=== PATIENT | female | born 1950 | race Asian ===

== ENCOUNTER 2020-09-07 06:51 | Outpatient (REF) | payer MEDICARE, SELFPAY ==
[2020-09-07 12:20] LABS: Albumin Level 4.2 g/dL (3.5-5.0)
[2020-09-07 12:29] LABS: Free T4 (Free Thyroxine) 0.99 ng/dL (0.71-1.85); Thyroid Stimulating Hormone 1.27 mIU/mL (0.32-4.0); Vitamin D 25-OH Total 24.4 ng/mL (>30)
[2020-09-08 19:01] LABS: Calcium (PTHI) 9.6 mg/dL (8.6-10.4); PTHI 62 pg/mL (14-64)
== END 2020-09-07 06:52 | disposition home or self-care (01) ==
LOC: HO.HMGCLDS 06:51
PROVIDERS: PCP Internal Medicine; Visit Provider Internal Medicine
DX: M81.0 Age-related osteoporosis without current pathological fracture (principal); E21.0 Primary hyperparathyroidism; E55.9 Vitamin D deficiency, unspecified
CPT/HCPCS: 82040; 82306; 82310; 83970; 84439; 84443

== ENCOUNTER 2020-09-11 08:17 | Outpatient (REF) | payer MEDICARE, SELFPAY ==
--- NOTE | 2020-09-11 08:20 | MM_ITS ---
EXAMINATION: MM SCREENING DIGITAL BREAST TOMOSYNTHESIS, BILATERAL CLINICAL INFORMATION: Screening. Asymptomatic. The lifetime risk of breast cancer based on the Tyrer-Cuzick Model is 4%. COMPARISON: Mammography: 09/09/2019, 08/26/2018, 08/11/2017 TECHNIQUE: Digital breast tomosynthesis is performed in both the craniocaudal and mediolateral oblique views along with computer-aided detection (CAD). Synthesized 2D images are generated from the tomosynthesis. Additional left MLO view is provided. FINDINGS: The breasts are heterogeneously dense, which may obscure small masses (ACR BI-RADS breast composition Category c). There are no significant masses, abnormal calcifications, or other abnormalities. Parenchymal pattern is similar to prior studies. No significant changes. MM/MM tomosynthesis screening BI IMPRESSION: No mammographic evidence of malignancy. ASSESSMENT: BI-RADS 1: Negative RECOMMENDATION: Routine annual mammography screening. This patient's information was entered into a reminder system with a target due date for their next mammogram.
== END 2020-09-11 08:18 | disposition home or self-care (01) ==
LOC: HO.MAMMO 08:17
PROVIDERS: PCP Internal Medicine; Visit Provider Internal Medicine
DX: Z12.31 Encounter for screening mammogram for malignant neoplasm of breast (principal)
CPT/HCPCS: 77063; 77067

== ENCOUNTER → 2020-09-21 11:15 | Outpatient (BNVA) | payer MEDICARE, SELFPAY | PROVIDERS: PCP Internal Medicine; Referring Provider Internal Medicine; Visit Provider Internal Medicine | DX: E21.3 Hyperparathyroidism, unspecified (principal); M81.0 Age-related osteoporosis without current pathological fracture; E55.9 Vitamin D deficiency, unspecified; Z79.899 Other long term (current) drug therapy; Z79.891 Long term (current) use of opiate analgesic; Z79.82 Long term (current) use of aspirin | CPT/HCPCS: Q3014 ==

== ENCOUNTER 2020-10-09 07:55 | Outpatient (REF) | payer MEDICARE, SELFPAY ==
[2020-10-09 11:37] LABS: Albumin Level 4.5 g/dL (3.5-5.0); Calcium 8.5 mg/dL (8.4-10.2); Estimated Glomerular Filt Rate > 60
[2020-10-09 11:40] LABS: Alanine Aminotransferase 17 U/L (0-31); Albumin Level 4.4 g/dL (3.5-5.0); Alkaline Phosphatase 86 U/L (39-117); Anion Gap 15 (12-20); Aspartate Amino Transferase 20 U/L (5-31); Bilirubin Total 0.9 mg/dL (0.0-1.0); Blood Urea Nitrogen 16 mg/dL (9-16); Calcium 8.4 mg/dL (8.4-10.2); Carbon Dioxide 30 mmol/L (22-29); Chloride 101 mmol/L (96-108); Cholesterol 171 mg/dL; Estimated Glomerular Filt Rate > 60; Glucose Fasting 90 mg/dL (60-99); HDL Cholesterol 50 mg/dL; LDL Cholesterol Calculated 98 mg/dl; Potassium 4.6 mmol/l (3.3-5.1); Sodium 141 mmol/L (135-145); Total Protein 7.1 g/dL (6.5-8.0); Triglycerides 115 mg/dL
[2020-10-09 11:58] LABS: Estimated Average Glucose 120 mg/dL; Hemoglobin A1c % 5.8 %
[2020-10-09 12:04] LABS: Vitamin D 25-OH Total 49.4 ng/mL (>30)
[2020-10-11 16:58] LABS: Calcium (PTHI) 8.8 mg/dL (8.6-10.4); PTHI 22 pg/mL (14-64)
== END 2020-10-09 07:56 | disposition home or self-care (01) ==
LOC: HO.HMGCLDS 07:55
PROVIDERS: PCP Internal Medicine; Visit Provider Internal Medicine
DX: E55.9 Vitamin D deficiency, unspecified (principal); E21.3 Hyperparathyroidism, unspecified; I10 Essential (primary) hypertension; R73.03 Prediabetes; K21.9 Gastro-esophageal reflux disease without esophagitis; E78.9 Disorder of lipoprotein metabolism, unspecified; Z91.09 Other allergy status, other than to drugs and biological substances
CPT/HCPCS: 80053; 80061; 82040; 82306; 82310; 82565; 83036; 83970

== ENCOUNTER → 2020-10-19 09:30 | Outpatient (BNVA) | payer MEDICARE, SELFPAY | PROVIDERS: PCP Internal Medicine; Visit Provider Internal Medicine | DX: Z13.89 Encounter for screening for other disorder (principal) | CPT/HCPCS: Q3014 ==

== ENCOUNTER 2020-11-06 09:48 | Outpatient (REF) | payer MEDICARE, SELFPAY ==
[2020-11-06 11:41] LABS: Albumin Level 4.3 g/dL (3.5-5.0); Calcium 7.9 mg/dL (8.4-10.2); Estimated Glomerular Filt Rate > 60
[2020-11-06 12:03] LABS: Vitamin D 25-OH Total 50.4 ng/mL (>30)
[2020-11-07 17:43] LABS: Calcium (PTHI) 8.2 mg/dL (8.6-10.4); PTHI 29 pg/mL (14-64)
== END 2020-11-06 09:49 | disposition home or self-care (01) ==
LOC: HO.LAB 09:48
PROVIDERS: PCP Internal Medicine; Visit Provider Internal Medicine
DX: E21.3 Hyperparathyroidism, unspecified (principal); E20.9 Hypoparathyroidism, unspecified; E55.9 Vitamin D deficiency, unspecified
CPT/HCPCS: 36415; 82040; 82306; 82310; 82565; 83970; 84100

== ENCOUNTER → 2020-11-13 10:18 | Outpatient (BNVA) | payer MEDICARE, SELFPAY | PROVIDERS: PCP Internal Medicine; Visit Provider Internal Medicine | DX: Z76.89 Persons encountering health services in other specified circumstances (principal) | CPT/HCPCS: Q3014 ==

== ENCOUNTER 2020-11-20 12:15 | Outpatient (REF) | payer MEDICARE, SELFPAY ==
[2020-11-20 13:10] LABS: Albumin Level 4.7 g/dL (3.5-5.0); Calcium 8.6 mg/dL (8.4-10.2); Estimated Glomerular Filt Rate > 60; Phosphorus 5.3 mg/dL (2.7-4.5)
[2020-11-22 10:42] LABS: Calcium (PTHI) 8.8 mg/dL (8.6-10.4); PTHI 30 pg/mL (14-64)
== END 2020-11-20 12:16 | disposition home or self-care (01) ==
LOC: HO.LAB 12:15
PROVIDERS: PCP Internal Medicine; Visit Provider Internal Medicine
DX: E20.9 Hypoparathyroidism, unspecified (principal)
CPT/HCPCS: 36415; 82040; 82310; 82565; 83970; 84100

== ENCOUNTER 2020-11-27 09:53 | Outpatient (REF) | payer MEDICARE, SELFPAY ==
[2020-11-27 12:22] LABS: Albumin Level 4.6 g/dL (3.5-5.0); Calcium 8.3 mg/dL (8.4-10.2); Phosphorus 4.6 mg/dL (2.7-4.5)
[2020-11-29 11:32] LABS: PTHI 36 pg/mL (14-64)
== END 2020-11-27 09:54 | disposition home or self-care (01) ==
LOC: HO.LAB 09:53
PROVIDERS: PCP Internal Medicine; Visit Provider Internal Medicine
DX: E20.9 Hypoparathyroidism, unspecified (principal); E55.9 Vitamin D deficiency, unspecified; M81.0 Age-related osteoporosis without current pathological fracture
CPT/HCPCS: 36415; 82040; 82310; 83970; 84100; Q3014

== ENCOUNTER 2020-12-11 06:56 | Outpatient (REF) | payer MEDICARE, SELFPAY ==
[2020-12-11 08:30] LABS: Albumin Level 4.5 g/dL (3.5-5.0); Calcium 8.6 mg/dL (8.4-10.2)
[2020-12-12 09:53] LABS: Calcium (PTHI) 8.9 mg/dL (8.6-10.4); PTHI 21 pg/mL (14-64)
== END 2020-12-11 06:57 | disposition home or self-care (01) ==
LOC: HO.LAB 06:56
PROVIDERS: PCP Internal Medicine; Visit Provider Internal Medicine
DX: E89.2 Postprocedural hypoparathyroidism (principal); E21.3 Hyperparathyroidism, unspecified; M81.0 Age-related osteoporosis without current pathological fracture; E55.9 Vitamin D deficiency, unspecified
CPT/HCPCS: 36415; 82040; 82310; 83970; 99212

== ENCOUNTER 2020-12-25 07:18 | Outpatient (REF) | payer MEDICARE, SELFPAY ==
[2020-12-25 08:27] LABS: Albumin Level 4.7 g/dL (3.5-5.0); Calcium 8.8 mg/dL (8.4-10.2); Phosphorus 5.1 mg/dL (2.7-4.5)
[2020-12-27 10:01] LABS: PTHI 33 pg/mL (14-64)
== END 2020-12-25 07:19 | disposition home or self-care (01) ==
LOC: HO.LAB 07:18
PROVIDERS: PCP Internal Medicine; Visit Provider Internal Medicine
DX: E20.9 Hypoparathyroidism, unspecified (principal)
CPT/HCPCS: 36415; 82040; 82310; 83970; 84100

== ENCOUNTER 2021-01-09 07:00 | Outpatient (REF) | payer MEDICARE, MEDICAID, SELFPAY ==
[2021-01-09 08:24] LABS: Albumin Level 4.6 g/dL (3.5-5.0); Calcium 8.4 mg/dL (8.4-10.2)
[2021-01-09 08:57] LABS: Vitamin D 25-OH Total 40.6 ng/mL (>30)
[2021-01-10 15:46] LABS: Calcium (PTHI) 8.7 mg/dL (8.6-10.4); PTHI 27 pg/mL (14-64)
== END 2021-01-09 07:01 | disposition home or self-care (01) ==
LOC: HO.LAB 07:00
PROVIDERS: PCP Internal Medicine; Visit Provider Internal Medicine
DX: E20.9 Hypoparathyroidism, unspecified (principal); E55.9 Vitamin D deficiency, unspecified
CPT/HCPCS: 36415; 82040; 82306; 82310; 83970

== ENCOUNTER 2021-01-16 12:54 | Outpatient (REF) | payer MEDICARE, SELFPAY ==
[2021-01-16 13:57] LABS: Albumin Level 4.4 g/dL (3.5-5.0); Calcium 8.3 mg/dL (8.4-10.2)
[2021-01-17 16:36] LABS: Calcium (PTHI) 8.4 mg/dL (8.6-10.4); PTHI 30 pg/mL (14-64)
== END 2021-01-16 12:55 | disposition home or self-care (01) ==
LOC: HO.LAB 12:54
PROVIDERS: PCP Internal Medicine; Visit Provider Internal Medicine
DX: E20.9 Hypoparathyroidism, unspecified (principal)
CPT/HCPCS: 36415; 82040; 82310; 83970

== ENCOUNTER 2021-01-29 07:34 | Outpatient (REF) | payer MEDICARE, MEDICAID, SELFPAY ==
[2021-01-29 08:30] LABS: Albumin Level 4.6 g/dL (3.5-5.0); Calcium 9.5 mg/dL (8.4-10.2)
[2021-01-29 09:00] LABS: Vitamin D 25-OH Total 39.4 ng/mL (>30)
[2021-01-30 17:37] LABS: Calcium (PTHI) 9.7 mg/dL (8.6-10.4); PTHI 15 pg/mL (14-64)
== END 2021-01-29 07:35 | disposition home or self-care (01) ==
LOC: HO.LAB 07:34
PROVIDERS: PCP Internal Medicine; Visit Provider Internal Medicine
DX: E20.9 Hypoparathyroidism, unspecified (principal); E55.9 Vitamin D deficiency, unspecified
CPT/HCPCS: 36415; 82040; 82306; 82310; 83970

== ENCOUNTER 2021-01-29 07:59 | Outpatient (REF) | payer MEDICARE, MEDICAID, SELFPAY | END 2021-01-29 08:00 | disposition home or self-care (01) | LOC: HO.LAB 07:59 | PROVIDERS: Visit Provider Internal Medicine | DX: Z20.822 Contact with and (suspected) exposure to COVID-19 (principal) | CPT/HCPCS: 36415; C9803; U0003; U0005 ==

== ENCOUNTER 2021-02-16 11:31 | Outpatient (REF) | payer MEDICARE, MEDICAID, SELFPAY ==
[2021-02-16 12:41] LABS: Albumin Level 4.7 g/dL (3.5-5.0); Calcium 9.3 mg/dL (8.4-10.2)
[2021-02-20 06:56] LABS: Calcium (PTHI) 9.6 mg/dL (8.6-10.4); PTHI 22 pg/mL (14-64)
== END 2021-02-16 11:32 | disposition home or self-care (01) ==
LOC: HO.LAB 11:31
PROVIDERS: PCP Internal Medicine; Visit Provider Internal Medicine
DX: E20.9 Hypoparathyroidism, unspecified (principal)
CPT/HCPCS: 36415; 82040; 82310; 83970

== ENCOUNTER 2021-02-23 10:10 | Outpatient (REF) | payer MEDICARE, MEDICAID, SELFPAY ==
[2021-02-23 11:55] LABS: Alanine Aminotransferase 27 U/L (0-31); Albumin Level 4.7 g/dL (3.5-5.0); Alkaline Phosphatase 66 U/L (39-117); Anion Gap 15 (12-20); Aspartate Amino Transferase 28 U/L (5-31); Bilirubin Total 1.1 mg/dL (0.0-1.0); Blood Urea Nitrogen 18 mg/dL (9-16); Calcium 8.7 mg/dL (8.4-10.2); Carbon Dioxide 30 mmol/L (22-29); Chloride 101 mmol/L (96-108); Estimated Glomerular Filt Rate > 60; Glucose Random 91 mg/dL (60-115); Potassium 4.7 mmol/L (3.3-5.1); Sodium 141 mmol/L (135-145); Total Protein 7.6 g/dL (6.5-8.0)
== END 2021-02-23 10:11 | disposition home or self-care (01) ==
LOC: HO.HMGCLDS 10:10
PROVIDERS: PCP Internal Medicine; Visit Provider Internal Medicine
DX: Z00.01 Encounter for general adult medical examination with abnormal findings (principal); E78.9 Disorder of lipoprotein metabolism, unspecified; I10 Essential (primary) hypertension
CPT/HCPCS: 36415; 80053

== ENCOUNTER 2021-03-12 09:21 | Outpatient (REF) | payer MEDICARE, MEDICAID, SELFPAY ==
[2021-03-12 12:01] LABS: Albumin Level 4.2 g/dL (3.5-5.0); Calcium 8.4 mg/dL (8.4-10.2); Estimated Glomerular Filt Rate > 60; Phosphorus 4.4 mg/dL (2.7-4.5)
[2021-03-12 12:12] LABS: Vitamin D 25-OH Total 37.8 ng/mL (>30)
[2021-03-13 19:47] LABS: Calcium (PTHI) 8.6 mg/dL (8.6-10.4); PTHI 30 pg/mL (14-64)
[2021-03-15 07:17] LABS: HPV mRNA E6/E7 rflx Not Detected (Not Detected)
== END 2021-03-12 09:22 | disposition home or self-care (01) ==
LOC: HO.LAB 09:21
PROVIDERS: Absent Provider Internal Medicine; PCP Internal Medicine; Visit Provider Advanced Practice Midwife
DX: Z01.419 Encounter for gynecological examination (general) (routine) without abnormal findings (principal); E21.3 Hyperparathyroidism, unspecified; E55.9 Vitamin D deficiency, unspecified; E20.9 Hypoparathyroidism, unspecified; M81.0 Age-related osteoporosis without current pathological fracture
CPT/HCPCS: 36415; 82040; 82306; 82310; 82565; 83970; 84100; 87624; 88142

== ENCOUNTER → 2021-04-18 11:19 | Outpatient (BNVA) | payer MEDICARE, MEDICAID, SELFPAY | PROVIDERS: PCP Internal Medicine; Visit Provider Internal Medicine | CPT/HCPCS: Q3014 ==

== ENCOUNTER 2021-06-19 07:49 | Outpatient (REF) | payer MEDICARE, MEDICAID, SELFPAY ==
--- NOTE | ~2021-06-19 | MM_ITS ---
EXAMINATION: BONE DENSITOMETRY CLINICAL INDICATION: Age-related osteoporosis without current pathological fracture. COMPARISON: Previous BD dated 11/12/2018 and baseline BD dated 09/30/2007. TECHNIQUE: Using a [employer] DXA System (software version: 13.1) manufactured by [employer], dual-energy x-ray absorptiometry was performed of the lumbar spine and left hip. The images are of good technical quality. Summary results are attached. FINDINGS: AP SPINE L1-L3 (excluding L4): The data of L1-L4 has been changed to exclude the L4 vertebral body, because hardware at this level may cause overestimation of lumbar spine density. Current: BMD 0.942 g/cm2, Z-score -0.2, T-score -1.9, osteopenia, 1.0% increase from previous, 12.2% decrease from baseline (<5% change is not significant). Prior: BMD 0.933 g/cm2. Baseline: BMD 1.073 g/cm2. LEFT FEMUR, NECK: Current: BMD 0.597 g/cm2, Z-score -1.5, T-score -3.2, osteoporosis. Prior: BMD 0.432 g/cm2. Baseline: BMD 0.745 g/cm2. LEFT FEMUR, TOTAL: Current: BMD 0.659 g/cm2, Z-score -1.3, T-score -2.8, osteoporosis, 29.5% increase from previous, 22.5% decrease from baseline (<5% change is not significant). Prior: BMD 0.509 g/cm2. Baseline: BMD 0.850 g/cm2. IDENTIFIED RISK FACTORS: Osteoporosis, low calcium intake, menopause. HISTORY OF FRACTURE: None listed. MEDICATIONS: Calcium or multivitamin. MM/XR DEXA axial skeleton IMPRESSION: 1. DIAGNOSIS: Osteoporosis based on the lowest T-score value of -3.2 in the femoral neck applying World Health Organization criteria. 2. 10-YEAR FRACTURE RISK PREDICTION, FRAX: Major osteoporotic fracture (clinical spine, forearm, hip or shoulder) 11.6%. Hip fracture 4.0%. 3. Treatment Recommendations: NOF guidelines recommend consideration for treatment in postmenopausal women and men age 50 and older presenting with the following: -A hip or vertebral (clinical or morphometric) fracture. -T-score less than or equal to -2.5 at the femoral neck or spine after appropriate evaluation to exclude secondary causes. -Low bone mass at the hip or spine and a 10-year fracture probability by FRAX of greater than or equal to 3% for hip fracture or greater than or equal to 20% for major osteoporotic fracture based on the [place] adapted WHO algorithm. 4. Other Recommendations: All treatment decisions require clinical judgment and consideration of individual patient factors, including patient preferences, comorbidities, previous drug use, risk factors not captured in the FRAX model (e.g. frailty, falls, vitamin D deficiency, increased bone turnover, interval significant decline in bone density) and possible under or overestimation of fracture risk by FRAX. Additional medical evaluation for secondary cause of low bone mineral density may be appropriate. FUTURE SCAN RECOMMENDATION: People with diagnosed cases of osteoporosis or at high risk for fracture should have regular bone mineral density tests. For patients eligible for Medicare, routine testing is allowed once every 2 years. The testing frequency can be increased to one year for patients who have rapidly progressing disease, those who are receiving or discontinuing medical therapy to restore bone mass, or have additional risk factors.
== END 2021-06-19 07:50 | disposition home or self-care (01) ==
LOC: HO.MAMMO 07:49
PROVIDERS: PCP Internal Medicine; Visit Provider Internal Medicine
DX: M81.0 Age-related osteoporosis without current pathological fracture (principal); Z78.0 Asymptomatic menopausal state
CPT/HCPCS: 77080

== ENCOUNTER 2021-09-19 15:32 | Outpatient (REF) | payer MEDICARE, MEDICAID, SELFPAY ==
--- NOTE | ~2021-09-19 | MM_ITS ---
EXAMINATION: MM SCREENING DIGITAL BREAST TOMOSYNTHESIS, BILATERAL CLINICAL INFORMATION: Screening. Asymptomatic. The lifetime risk of breast cancer based on the Tyrer-Cuzick Model is 4%. COMPARISON: Mammography: 09/11/2020, 09/09/2019, 08/26/2018 TECHNIQUE: Digital breast tomosynthesis is performed in both the craniocaudal and mediolateral oblique views along with computer-aided detection (CAD). Synthesized 2D images are generated from the tomosynthesis. FINDINGS: The breasts are heterogeneously dense, which may obscure small masses (ACR BI-RADS breast composition Category c). There are no significant masses, abnormal calcifications, or other abnormalities. The axilla and skin contours are unremarkable. No significant changes from prior exams. MM/MM tomosynthesis screening BI IMPRESSION: No mammographic evidence of malignancy. ASSESSMENT: BI-RADS 1: Negative RECOMMENDATION: Routine annual mammography screening. This patient's information was entered into a reminder system with a target due date for their next mammogram.
== END 2021-09-19 15:33 | disposition home or self-care (01) ==
LOC: HO.MAMMO 15:32
PROVIDERS: Visit Provider Internal Medicine
DX: Z12.31 Encounter for screening mammogram for malignant neoplasm of breast (principal)
CPT/HCPCS: 77063; 77067

== ENCOUNTER 2021-10-18 09:18 | Outpatient (REF) | payer MEDICARE, MEDICAID, SELFPAY ==
[2021-10-18 10:10] LABS: Albumin Level 4.4 g/dL (3.5-5.0); Calcium 8.9 mg/dL (8.4-10.2)
[2021-10-18 10:38] LABS: Vitamin D 25-OH Total 40.3 ng/mL (>30)
[2021-10-19 16:31] LABS: Calcium (PTHI) 9.3 mg/dL (8.6-10.4); PTHI 25 pg/mL (14-64)
== END 2021-10-18 09:19 | disposition home or self-care (01) ==
LOC: HO.LAB 09:18
PROVIDERS: PCP Internal Medicine; Visit Provider Internal Medicine
DX: E20.9 Hypoparathyroidism, unspecified (principal); E55.9 Vitamin D deficiency, unspecified; M81.0 Age-related osteoporosis without current pathological fracture; E21.3 Hyperparathyroidism, unspecified
CPT/HCPCS: 36415; 82040; 82306; 82310; 83970; Q3014

== ENCOUNTER 2021-11-23 07:30 | Outpatient (REF) | payer MEDICARE, MEDICAID, SELFPAY ==
[2021-11-23 11:20] LABS: MANUAL DIFF FLAG NO
[2021-11-23 11:34] LABS: Basophils Percent Auto 0.2 % (0-2); Eosinophils Absolute Auto 0.1 X10*3/uL (0.0-0.4); Eosinophils Percent Auto 1.5 % (0-4); Hematocrit 37.4 % (37.0-47.0); Hemoglobin 12.1 g/dl (12.0-16.0); Imm Gran Abs Auto 0.01 X10*3/uL (0.00-0.03); Imm Gran Pct Auto 0.2 % (0.0-0.4); Lymphocytes Percent Auto 37.1 % (20-40); Mean Corpuscular HGB Conc 32.4 g/dl (31.0-35.0); Mean Corpuscular Hemoglobin 30.3 pg (27.0-33.0); Mean Corpuscular Volume 93.5 fL (80.0-98.0); Mean Platelet Volume 10.1 fL (9.4-12.3); Monocytes Absolute Auto 0.4 X10*3/uL (0.1-1.2); Neutrophils Absolute Auto 2.8 x10*3/uL (2.0-8.3); Platelet Count 262 X10*3/uL (160-400); Red Cell Distribution Width 13.2 % (11.0-16.0); White Blood Count 5.3 X10*3/uL (4.8-10.8)
[2021-11-23 11:54] LABS: Alanine Aminotransferase 21 U/L (0-31); Albumin Level 4.1 g/dL (3.5-5.0); Alkaline Phosphatase 48 U/L (39-117); Anion Gap 14 (12-20); Aspartate Amino Transferase 23 U/L (5-31); Bilirubin Total 0.7 mg/dL (0.0-1.0); Blood Urea Nitrogen 15 mg/dL (9-16); Calcium 8.4 mg/dL (8.4-10.2); Carbon Dioxide 29 mmol/L (22-29); Chloride 103 mmol/L (96-108); Cholesterol 163 mg/dL; Estimated Glomerular Filt Rate > 60; Glucose Fasting 95 mg/dL (60-99); HDL Cholesterol 50 mg/dL; LDL Cholesterol Calculated 100 mg/dl; Potassium 4.7 mmol/L (3.3-5.1); Sodium 141 mmol/L (135-145); Triglycerides 65 mg/dL
== END 2021-11-23 07:31 | disposition home or self-care (01) ==
LOC: HO.HMGCLDS 07:30
PROVIDERS: Visit Provider Internal Medicine
DX: B35.3 Tinea pedis (principal); E78.9 Disorder of lipoprotein metabolism, unspecified; H10.10 Acute atopic conjunctivitis, unspecified eye; I10 Essential (primary) hypertension; Z91.09 Other allergy status, other than to drugs and biological substances
CPT/HCPCS: 36415; 80053; 80061; 85025

== ENCOUNTER → 2022-03-14 09:36 | Outpatient (BNVA) | payer MEDICARE, MEDICAID, SELFPAY | PROVIDERS: PCP Internal Medicine; Visit Provider Advanced Practice Midwife | DX: Z01.419 Encounter for gynecological examination (general) (routine) without abnormal findings (principal) ==

== ENCOUNTER 2022-03-22 06:30 | Outpatient (REF) | payer MEDICARE, MEDICAID, SELFPAY ==
[2022-03-22 11:35] LABS: Anion Gap 11 (12-20); Blood Urea Nitrogen 16 mg/dL (9-16); Carbon Dioxide 33 mmol/L (22-29); Chloride 101 mmol/L (96-108); Estimated Glomerular Filt Rate > 60; Glucose Fasting 101 mg/dL (60-99); Potassium 4.8 mmol/L (3.3-5.1); Sodium 140 mmol/L (135-145)
[2022-03-22 11:36] LABS: Alanine Aminotransferase 20 U/L (0-31); Albumin Level 4.2 g/dL (3.5-5.0); Alkaline Phosphatase 49 U/L (39-117); Aspartate Amino Transferase 25 U/L (5-31); Bilirubin Total 0.6 mg/dL (0.0-1.0); Calcium 8.2 mg/dL (8.4-10.2); Cholesterol 163 mg/dL; HDL Cholesterol 52 mg/dL; LDL Cholesterol Calculated 93 mg/dl; Total Protein 6.9 g/dL (6.5-8.0); Triglycerides 91 mg/dL
== END 2022-03-22 06:31 | disposition home or self-care (01) ==
LOC: HO.HMGCLDS 06:30
PROVIDERS: Visit Provider Internal Medicine
DX: Z13.89 Encounter for screening for other disorder (principal)
CPT/HCPCS: 36415; 80053; 80061

== ENCOUNTER 2022-07-30 09:05 | Outpatient (REF) | payer MEDICARE, MEDICAID, SELFPAY ==
[2022-07-30 11:51] LABS: Alanine Aminotransferase 24 U/L (0-31); Albumin Level 4.6 g/dL (3.5-5.0); Alkaline Phosphatase 56 U/L (39-117); Anion Gap 16 (12-20); Aspartate Amino Transferase 28 U/L (5-31); Bilirubin Total 0.7 mg/dL (0.0-1.0); Blood Urea Nitrogen 17 mg/dL (9-16); Calcium 8.9 mg/dL (8.4-10.2); Carbon Dioxide 29 mmol/L (22-29); Chloride 101 mmol/L (96-108); Estimated Glomerular Filt Rate > 60; Glucose Random 86 mg/dL (60-115); Potassium 4.6 mmol/L (3.3-5.1); Sodium 141 mmol/L (135-145); Total Protein 7.3 g/dL (6.5-8.0)
[2022-07-30 12:08] LABS: Estimated Average Glucose 123 mg/dL; Hemoglobin A1c % 5.9 %
== END 2022-07-30 09:06 | disposition home or self-care (01) ==
LOC: HO.HMGCLDS 09:05
PROVIDERS: PCP Internal Medicine; Visit Provider Internal Medicine
DX: E78.9 Disorder of lipoprotein metabolism, unspecified (principal); I10 Essential (primary) hypertension; M81.0 Age-related osteoporosis without current pathological fracture; R73.03 Prediabetes; Z91.09 Other allergy status, other than to drugs and biological substances
CPT/HCPCS: 36415; 80053; 83036

== ENCOUNTER 2022-09-21 08:03 | Outpatient (REF) | payer MEDICARE, MEDICAID, SELFPAY ==
--- NOTE | ~2022-09-21 | MM_ITS ---
EXAMINATION: MM SCREENING DIGITAL BREAST TOMOSYNTHESIS, BILATERAL CLINICAL INFORMATION: Screening. Asymptomatic. The lifetime risk of breast cancer based on the Tyrer-Cuzick Model is 4%. COMPARISON: Mammography: 09/19/2021, 09/11/2020, 09/09/2019 TECHNIQUE: Digital breast tomosynthesis is performed in both the craniocaudal and mediolateral oblique views along with computer-aided detection (CAD). Synthesized 2D images are generated from the tomosynthesis. FINDINGS: The breasts are heterogeneously dense, which may obscure small masses (ACR BI-RADS breast composition Category c). There are no significant masses, abnormal calcifications, or other abnormalities. Parenchymal pattern is similar to prior exams. No architectural abnormality. No developing density. Skin contours are smooth. MM/MM tomosynthesis screening BI IMPRESSION: No mammographic evidence of malignancy. ASSESSMENT: BI-RADS 1: Negative RECOMMENDATION: Routine annual mammography screening. This patient's information was entered into a reminder system with a target due date for their next mammogram.
== END 2022-09-21 08:04 | disposition home or self-care (01) ==
LOC: HO.MAMMO 08:03
PROVIDERS: PCP Internal Medicine; Visit Provider Internal Medicine
DX: Z12.31 Encounter for screening mammogram for malignant neoplasm of breast (principal)
CPT/HCPCS: 77063; 77067

== ENCOUNTER 2022-10-17 07:33 | Outpatient (REF) | payer MEDICARE, MEDICAID, SELFPAY ==
[2022-10-17 08:58] LABS: Alanine Aminotransferase 19 U/L (0-31); Albumin Level 4.5 g/dL (3.5-5.0); Alkaline Phosphatase 50 U/L (39-117); Anion Gap 13 (12-20); Aspartate Amino Transferase 23 U/L (5-31); Bilirubin Total 0.6 mg/dL (0.0-1.0); Blood Urea Nitrogen 19 mg/dL (9-16); Calcium 8.4 mg/dL (8.4-10.2); Carbon Dioxide 29 mmol/L (22-29); Chloride 105 mmol/L (96-108); Estimated Glomerular Filt Rate > 60; Glucose Random 100 mg/dL (60-115); Phosphorus 3.7 mg/dL (2.7-4.5); Potassium 4.4 mmol/L (3.3-5.1); Sodium 143 mmol/L (135-145); Total Protein 6.9 g/dL (6.5-8.0); Vitamin D 25-OH Total 46.5 ng/mL (>30)
[2022-10-21 11:54] LABS: Calcium (PTHI) 8.5 mg/dL (8.6-10.4); PTHI 30 pg/mL (16-77)
== END 2022-10-17 07:34 | disposition home or self-care (01) ==
LOC: HO.LAB 07:33
PROVIDERS: PCP Internal Medicine; Visit Provider Internal Medicine
DX: M81.0 Age-related osteoporosis without current pathological fracture (principal); E55.9 Vitamin D deficiency, unspecified
CPT/HCPCS: 36415; 80053; 82306; 83970; 84100

== ENCOUNTER → 2022-10-21 12:56 | Outpatient (BNVA) | payer MEDICARE, MEDICAID, SELFPAY | PROVIDERS: PCP Internal Medicine; Visit Provider Internal Medicine | DX: E89.2 Postprocedural hypoparathyroidism (principal); M81.0 Age-related osteoporosis without current pathological fracture; E55.9 Vitamin D deficiency, unspecified | CPT/HCPCS: 99212 ==

== ENCOUNTER 2022-10-23 13:53 | Outpatient (REF) | payer MEDICARE, MEDICAID, SELFPAY ==
[2022-10-25 09:29] LABS: HBS Num1 71.52 mIU/mL (0-7.99); ~HepC Num1 0.49 S/CO (0.00-0.79); ~Hepatitis B Surface Antibody REACTIVE (Nonreactive); ~Hepatitis C Antibody Nonreactive (Nonreactive)
== END 2022-10-23 13:54 | disposition home or self-care (01) ==
LOC: HO.LAB 13:53
PROVIDERS: PCP Internal Medicine; Visit Provider Internal Medicine
DX: Z20.5 Contact with and (suspected) exposure to viral hepatitis (principal)
CPT/HCPCS: 36415; 86706; 86803

== ENCOUNTER 2022-11-29 08:26 | Outpatient (REF) | payer MEDICARE, MEDICAID, SELFPAY ==
--- NOTE | ~2022-11-29 | XR_ITS ---
EXAMINATION: XR LUMBOSACRAL SPINE CLINICAL INFORMATION: Lower back pain. COMPARISON: 05/30/2010 TECHNIQUE: Three views of the lumbosacral spine. FINDINGS: Posterior fusion hardware with intervertebral disc spacer at L5-S1. Hardware is intact. There is no acute fracture or subluxation. Grade 1 anterolisthesis of L3 on L4 and L4 on L5. Disc space narrowing at L4-L5. Small endplate osteophytes throughout. The sacroiliac joints are symmetric. The visualized sacrum is intact. Normal bowel gas pattern. XR/XR lumbar spine 2-3V IMPRESSION: Mild degenerative changes throughout the lumbar spine. Intact fusion at L5-S1.
== END 2022-11-29 08:27 | disposition home or self-care (01) ==
LOC: HO.HMGCX 08:26
PROVIDERS: Visit Provider Internal Medicine
DX: M54.50 Low back pain, unspecified (principal)
CPT/HCPCS: 72100

== ENCOUNTER 2022-12-30 06:47 | Day surgery (SDC) | payer MEDICARE, MEDICAID, SELFPAY ==
[2022-12-10 08:48] VITALS: BMI 23.4
--- NOTE | 2022-12-26 09:04 | MHC.SHP ---
Pre-Procedural Eval Section A Date of Service: 12/26/22 The patient is an INPATIENT: No Changes since office visit: No Cold of Flu in the past 2 weeks, No New Medical Problems, No Changes in Medication and No Patient answered all questions The History & Physical has been completed within 30 days and I have reviewed it.: Yes Section B Chief Complaint: Age-related nuclear cataract, left eye Allergies: Allergies Allergy/AdvReac Type Severity Reaction Status Date / Time No Known Allergies Allergy Verified 11/29/22 07:51 Plan Diagnosis/Plan: Unchanged I have reviewed the history and physical and performed a pertinent physical examination on my patient. No changes have occurred unless specified. Time Spent With Patient Time: Total time managing care of this patient today ____ minutes.
[2022-12-30 06:57] VITALS: BP 138/96; PULSE 85; RESP 16; TEMP 36.2; O2SAT 97
[2022-12-30] MEDS: Tetracaine HCl/PF 0.5% Oph Sol 4 ML DROPS 1 DROP EYE-LEFT ×2 (07:04→07:05)
[2022-12-30] MEDS: Cyclopentolate 1 % Ophth Sol 2 ML DRPBTL 1 DROP EYE-LEFT ×3 (07:06→07:17)
[2022-12-30] MEDS: Tropicamide 1 % Ophth Sol 3 ML BTL 1 DROP EYE-LEFT ×3 (07:08→07:18)
[2022-12-30] MEDS: Phenylephrine HCL 2.5% Oph SoL 2 ML BOTTLE 1 DROP EYE-LEFT ×3 (07:10→07:21)
[2022-12-30] MEDS: Ketorolac Tromethamine 0.5% Op 5 ML DROPS 1 DROP EYE-LEFT ×3 (07:10→07:19)
[2022-12-30] MEDS: Lactated Ringers 500 ML 50 ML IV (07:13)
--- NOTE | 2022-12-30 07:22 | P.CONAN_ITS ---
[facility] Active Problems Active Problems: All Active Problems (Updated 12/10/22 @ 08:44 by Natacha Adorno RN) Lipid disorder (Acute) Environmental allergies (Acute) Hypertension, essential (Acute) Arthrosis (Acute) Osteoporosis (Acute) Encounter for general adult medical examination with abnormal findings (Acute) Routine gynecological examination (Acute) TIA (transient ischemic attack) (Acute) Tinea pedis (Acute) Allergic conjunctivitis (Acute) Encounter for annual routine gynecological examination (Acute) Pre-diabetes (Acute) Exposure to viral hepatitis (Acute) Pre-op evaluation (Acute) Cataract (Acute) Lumbar pain (Acute) Fall (Acute) Left knee injury (Acute) Skin abrasion (Acute) Encounter for wound care (Acute) Hypoparathyroidism (Acute) Osteoporosis (Acute) Hyperparathyroidism (Acute) Past Medical History Medical History Back pain Elevated cholesterol HTN (hypertension) Hyperparathyroidism Hypoparathyroidism Osteoporosis TIA (transient ischemic attack) Vitamin D deficiency Functional capacity: independent ambulation Patient : No Family History Family History Father Diabetes Hypertension Mother Diabetes Hypertension Family/Other Colon cancer Surgical History Surgical History H/O colonoscopy History of back surgery History of hysteroscopy History of parathyroid surgery Hx of section Hx of neck surgery Hx of removal of neck cyst History of Problems with Anesthesia: No Social History Social History Household Members Other:: uncle Housing: Apartment Are you a primary rn progressive care unit to a significant other at home: No Do you presently have visiting nurse or other home services: No Alcohol intake: current Alcohol intake frequency: does not drink Patient Tobacco Use Status: Never used Tobacco e-Cigarette/Vaping Use: Never Used Use of substances other than those prescribed or required for medical reasons: No Have you been hit, kicked, punched, or otherwise hurt by someone within the past year? If so, by whom?: No Are you DNR?: No Advance Directives: No (states uncle is HCP) Advance Directives Information Provided: Yes (as above noted) Advance Directives on File: No Recently lost weight without trying: No Eating poorly because of decreased appetite: No Nutrition Risks: No Nutritional Risk Patient : No Poor oral hygiene: No (has some loose teeth-to have dental implants soon) service: No Current occupational status: employed Cognitive needs: No Hearing needs: No Vision needs: Yes Meds Allergies Allergy/AdvReac Type Severity Reaction Status Date / Time No Known Allergies Allergy Verified 12/30/22 07:01 Active Medications: Current Medications Lactated Ringer's (Lr) 500 mls @ 50 mls/hr IV .Q10H JACK Stop: 12/30/22 16:59 Last Admin: 12/30/22 07:13 Dose: 50 mls/hr Povidone Iodine (Povidone Iodine 5 % Ophth Soln 30 Ml Bottle) 1 appl EYE-LEFT PREOP PRN PRN Reason: Pre-Op Surgical Implant Prophy Home Medications Medication Instructions Recorded Confirmed Last Taken Type calcium 325 mg-vit D3 12.5 1 tab PO BID 04/18/21 12/10/22 Unknown History mcg-zinc 2.75 az-mmgeiv-[id number] tablet (Citracal-D3 Maximum Plus) clotrimazole-betamethasone 1 1 appl topical DAILY 12/10/22 12/10/22 Unknown History %-0.05 % topical cream Exam Exam Date and Time: December 30, 2022721 Height,Weight and Vital Signs: Height 5 ft 5 in Weight 63.957 kg Last Vital Signs Temp 97.2 F 12/30/22 06:57 Pulse 85 12/30/22 06:57 Resp 16 12/30/22 06:57 BP 138/96 H 12/30/22 06:57 Pulse Ox 97 12/30/22 06:57 O2 Del Method 12/30/22 06:57 Airway Mallampati Class: II TM Dist: >3cm Neck ROM: Full Heart: RRR Lungs: CTA Assessment and Plan Final Anesthetic Review History of Problems with Anesthesia: No ASA Class: II Final Preanesthetic Review: No Changes in Pt Med Stat, Meds/Allgs Chart Reviewed, Consent Obtained/Reviewed and Anes Risks/Benef Reviewed Patient Risk: Low Procedure Risk: Low Anesthetic Plan Anesthetic Plan: MAC: Disposition: Standard PACU
--- NOTE | 2022-12-30 08:21 | HO.PNOPHT ---
Ophthalmology Procedure Procedure Date of Service: 12/30/22 Ophthalmology Viscoelastic: Healoc Duet Dual Pack Pro Ophthalmology Lenses: TECRACHEL [id number] (21) Procedure Notes: PREOPERATIVE DIAGNOSIS: Decreased visual acuity left eye secondary to cataract POSTOPERATIVE DIAGNOSIS: Same PROCEDURE: Left cataract extraction with intraocular lens insertion SURGEON: Saurav Chaney M.D. ANESTHESIA: Topical/MAC ESTIMATED BLOOD LOSS: None COMPLICATIONS: None After obtaining informed consent, the patient was brought to the operation room suite and placed in the supine position. After adequate sedation per anesthesia, topical drops of Tetracaine were given to the left eye. The eye was then prepped and draped in the usual sterile fashion. The operating room microscope was then positioned over the operative eye and a lid speculum placed. A paracentesis was created. Viscoelastic was then instilled into the anterior chamber. A three plane incision was then created temporally, utilizing a 2.85 mm keratome. Capsulotomy forceps were then utilized to create a circular tear capsulotomy. Hydrodissection and hydrodelineation were carried out until adequate mobilization of the nucleus occurred. Phacoemulsification was then utilized to remove the dense central nucleus followed by removal of the cortical material utilizing the automated aspiration irrigation unit. Viscoat elastic was instilled into the posterior capsular bag followed by placement of a posterior chamber intraocular lens without difficulty. The residual Viscoat elastic was then removed utilizing the automated IA machine. The wound was check and found to be watertight. The patient tolerated the procedure well and the lid speculum was removed. Intracameral injection of Vigamox 0.1 mL followed by a subtenon injection of Kenalog-40 0.2 mL were administered. The patient will be seen in the a.m.
[2022-12-30 08:49] VITALS: BP 107/70; PULSE 77; RESP 17; TEMP 36.6; O2SAT 98
--- NOTE | 2022-12-30 09:18 | HO.POSTANES ---
Post Anesthesia Evaluation Post Anesthesia Evaluation Vital Signs: Vital Signs Temp Pulse Resp BP Pulse Ox O2 Del Method 12/30/22 08:49 97.9 F 77 17 107/70 98 Room Air 12/30/22 06:57 97.2 F 85 16 138/96 H 97 Room Air Anesthesia: Monitored Mental Status: Awake Pain Control: Satisfactory Nausea/Vomiting: None Hydration: Adequate Anesthesia-Related Issues: No Anes. Related Issues
== END 2022-12-30 08:51 | disposition home or self-care (01) ==
PROVIDERS: PCP Internal Medicine; Visit Provider Ophthalmology
PROC: (CPT 66985; principal; 2022-12-30 08:50)
DX: H25.12 Age-related nuclear cataract, left eye (principal); H52.4 Presbyopia; H40.013 Open angle with borderline findings, low risk, bilateral; I10 Essential (primary) hypertension; E78.00 Pure hypercholesterolemia, unspecified; M81.0 Age-related osteoporosis without current pathological fracture; E55.9 Vitamin D deficiency, unspecified; Z79.82 Long term (current) use of aspirin; Z79.899 Other long term (current) drug therapy; Z86.73 Personal history of transient ischemic attack (TIA), and cerebral infarction without residual deficits
CPT/HCPCS: 66984; J2250; J3010; J3301; V2632

== ENCOUNTER 2023-01-29 06:54 | Outpatient (REF) | payer MEDICARE, MEDICAID, SELFPAY ==
[2023-01-29 11:41] LABS: MANUAL DIFF FLAG NO
[2023-01-29 11:54] LABS: Basophils Percent Auto 0.4 % (0-2); Eosinophils Absolute Auto 0.1 X10*3/uL (0.0-0.4); Eosinophils Percent Auto 1.8 % (0-4); Hemoglobin 12.1 g/dl (12.0-16.0); Lymphocytes Absolute Auto 2.1 X10*3/uL (1.2-4.9); Lymphocytes Percent Auto 46.7 % (20-40); Mean Corpuscular HGB Conc 32.7 g/dl (31.0-35.0); Mean Corpuscular Hemoglobin 29.8 pg (27.0-33.0); Mean Corpuscular Volume 91.1 fL (80.0-98.0); Mean Platelet Volume 10.2 fL (9.4-12.3); Monocytes Absolute Auto 0.4 X10*3/uL (0.1-1.2); Neutrophils Absolute Auto 1.9 x10*3/uL (2.0-8.3); Neutrophils Percent Auto 43.1 % (45-73); Platelet Count 249 X10*3/uL (160-400); Red Blood Count 4.06 X10*6/uL (4.20-5.50); Red Cell Distribution Width 13.4 % (11.0-16.0); White Blood Count 4.5 X10*3/uL (4.8-10.8)
[2023-01-29 12:13] LABS: Alanine Aminotransferase 18 U/L (0-31); Albumin Level 4.3 g/dL (3.5-5.0); Alkaline Phosphatase 51 U/L (39-117); Anion Gap 12 (12-20); Aspartate Amino Transferase 24 U/L (5-31); Bilirubin Total 0.9 mg/dL (0.0-1.0); Blood Urea Nitrogen 15 mg/dL (9-16); Calcium 8.4 mg/dL (8.4-10.2); Carbon Dioxide 31 mmol/L (22-29); Chloride 106 mmol/L (96-108); Cholesterol 171 mg/dL; Estimated Glomerular Filt Rate > 60; Glucose Fasting 95 mg/dL (60-99); HDL Cholesterol 49 mg/dL; LDL Cholesterol Calculated 105 mg/dl; Potassium 4.8 mmol/L (3.3-5.1); Sodium 144 mmol/L (135-145); Total Protein 6.7 g/dL (6.5-8.0); Triglycerides 86 mg/dL
[2023-01-29 12:37] LABS: TSH reflex Free T4 1.75 uIU/mL (0.32-4.0); Vitamin B12 430 pg/mL (200-900)
[2023-02-04 15:53] LABS: Vitamin D 25-OH, D2 <4 ng/mL; Vitamin D 25-OH, D3 34 ng/mL; Vitamin D 25-OH, Total 34 ng/mL (30-100)
== END 2023-01-29 06:55 | disposition home or self-care (01) ==
LOC: HO.HMGCLDS 06:54
PROVIDERS: PCP Internal Medicine; Visit Provider Internal Medicine
DX: R53.83 Other fatigue (principal); E21.3 Hyperparathyroidism, unspecified; E78.9 Disorder of lipoprotein metabolism, unspecified; I10 Essential (primary) hypertension; M81.0 Age-related osteoporosis without current pathological fracture; Z91.09 Other allergy status, other than to drugs and biological substances
CPT/HCPCS: 36415; 80053; 80061; 82306; 82607; 84443; 85025

== ENCOUNTER 2023-02-10 07:05 | Day surgery (SDC) | payer MEDICARE, MEDICAID, SELFPAY ==
[2022-12-10 08:45] VITALS: BMI 23.4
--- NOTE | 2022-12-11 09:22 | MHC.SHP ---
Pre-Procedural Eval Section A Date of Service: 12/11/22 The patient is an INPATIENT: No Changes since office visit: No Cold of Flu in the past 2 weeks, No New Medical Problems, No Changes in Medication and No Patient answered all questions The History & Physical has been completed within 30 days and I have reviewed it.: Yes Section B Chief Complaint: Age-related nuclear cataract, right eye Allergies: Allergies Allergy/AdvReac Type Severity Reaction Status Date / Time No Known Allergies Allergy Verified 11/29/22 07:51 Plan Diagnosis/Plan: Unchanged I have reviewed the history and physical and performed a pertinent physical examination on my patient. No changes have occurred unless specified. Time Spent With Patient Time: Total time managing care of this patient today ____ minutes.
--- NOTE | 2023-02-07 09:39 | MHC.SHP ---
Pre-Procedural Eval Section A Date of Service: 02/07/23 The patient is an INPATIENT: No Changes since office visit: No Cold of Flu in the past 2 weeks, No New Medical Problems, No Changes in Medication and No Patient answered all questions The History & Physical has been completed within 30 days and I have reviewed it.: Yes Section B Chief Complaint: Age-related nuclear cataract, right eye Allergies: Allergies Allergy/AdvReac Type Severity Reaction Status Date / Time No Known Allergies Allergy Verified 01/28/23 12:37 Plan Diagnosis/Plan: Unchanged I have reviewed the history and physical and performed a pertinent physical examination on my patient. No changes have occurred unless specified. Time Spent With Patient Time: Total time managing care of this patient today ____ minutes.
[2023-02-10 07:27] VITALS: BP 127/81; PULSE 77; RESP 18; TEMP 36.1; O2SAT 97
[2023-02-10] MEDS: Tetracaine HCl/PF 0.5% Oph Sol 4 ML DROPS 1 DROP EYE-RIGHT (07:40)
[2023-02-10] MEDS: Cyclopentolate 1 % Ophth Sol 2 ML DRPBTL 1 DROP EYE-RIGHT ×3 (07:40→07:41)
[2023-02-10] MEDS: Ketorolac Tromethamine 0.5% Op 5 ML DROPS 1 DROP EYE-RIGHT ×3 (07:40→07:41)
[2023-02-10] MEDS: Phenylephrine HCL 2.5% Oph SoL 2 ML BOTTLE 1 DROP EYE-RIGHT ×3 (07:40→07:41)
[2023-02-10] MEDS: Tropicamide 1 % Ophth Sol 3 ML BTL 1 DROP EYE-RIGHT ×3 (07:40→07:41)
--- NOTE | 2023-02-10 07:43 | PC.NURSE ---
unable to scan or manual document ivf
--- NOTE | 2023-02-10 08:00 | HO.ANESPROP2 ---
[facility], [facility] Active Problems Active Problems: All Active Problems (Updated 01/28/23 @ 12:45 by Moustapha Mraiee MD) Lack of energy (Acute) Tired (Acute) Lipid disorder (Acute) Environmental allergies (Acute) Hypertension, essential (Acute) Arthrosis (Acute) Osteoporosis (Acute) Encounter for general adult medical examination with abnormal findings (Acute) Routine gynecological examination (Acute) TIA (transient ischemic attack) (Acute) Tinea pedis (Acute) Allergic conjunctivitis (Acute) Encounter for annual routine gynecological examination (Acute) Pre-diabetes (Acute) Exposure to viral hepatitis (Acute) Pre-op evaluation (Acute) Cataract (Acute) Lumbar pain (Acute) Fall (Acute) Left knee injury (Acute) Skin abrasion (Acute) Encounter for wound care (Acute) Hypoparathyroidism (Acute) Osteoporosis (Acute) Hyperparathyroidism (Acute) Past Medical History Medical History Back pain Elevated cholesterol HTN (hypertension) Hyperparathyroidism Hypoparathyroidism Osteoporosis TIA (transient ischemic attack) Vitamin D deficiency Family History Family History Father Diabetes Hypertension Mother Diabetes Hypertension Family/Other Colon cancer Family history of problems with anesthesia: No Surgical History Surgical History H/O colonoscopy History of back surgery History of hysteroscopy History of parathyroid surgery Hx of section Hx of neck surgery Hx of removal of neck cyst History of Problems with Anesthesia: No Social History Social History Household Members Other:: uncle Housing: Apartment Are you a primary medicare contact specialist to a significant other at home: No Do you presently have visiting nurse or other home services: No Alcohol intake: current Alcohol intake frequency: does not drink Patient Tobacco Use Status: Never used Tobacco e-Cigarette/Vaping Use: Never Used Use of substances other than those prescribed or required for medical reasons: No Have you been hit, kicked, punched, or otherwise hurt by someone within the past year? If so, by whom?: No Are you DNR?: No Advance Directives Information Provided: Yes (as above noted) Advance Directives on File: No Recently lost weight without trying: No Eating poorly because of decreased appetite: No Nutrition Risks: No Nutritional Risk Poor oral hygiene: No (has loose teeth-will be having dental implants soon) service: No Current occupational status: employed Cognitive needs: No Hearing needs: No Vision needs: Yes Meds Allergies Allergy/AdvReac Type Severity Reaction Status Date / Time No Known Allergies Allergy Verified 01/28/23 12:37 Active Medications: Current Medications Lactated Ringer's (Lr) 500 mls @ 50 mls/hr IVCONT .Q10H JACK Povidone Iodine (Povidone Iodine 5 % Ophth Soln 30 Ml Bottle) 1 appl EYE-RIGHT PREOP PRN PRN Reason: Pre-Op Surgical Implant Prophy Home Medications Medication Instructions Recorded Confirmed Last Taken Type calcium 325 mg-vit D3 12.5 1 tab PO BID 04/18/21 01/28/23 Unknown History mcg-zinc 2.75 lm-ucuxyh-utobcrbnl tablet (Citracal-D3 Maximum Plus) clotrimazole-betamethasone 1 1 appl topical DAILY 12/10/22 01/28/23 Unknown History %-0.05 % topical cream Exam Exam Date and Time: February 10, 2023 0800 Height,Weight and Vital Signs: Height 5 ft 5 in Weight 63.957 kg Last Vital Signs Temp 96.9 F 02/10/23 07:27 Pulse 77 02/10/23 07:27 Resp 18 02/10/23 07:27 BP 127/81 02/10/23 07:27 Pulse Ox 97 02/10/23 07:27 O2 Del Method Room Air 02/10/23 07:27 Airway Mallampati Class: II TM Dist: >3cm Neck ROM: Full Heart: rrr Lungs: cta Assessment and Plan Assessment Anesthesia Assessment: Anesthesia Plan Discussed and Chart Reviewed Final Anesthetic Review Family History of Problems with Anesthesia: No History of Problems with Anesthesia: No NPO: Yes ASA Class: III Final Preanesthetic Review: No Changes in Pt Med Stat, Meds/Allgs Chart Reviewed, Consent Obtained/Reviewed and Anes Risks/Benef Reviewed Patient Risk: Intermediate Procedure Risk: Low Anesthetic Plan Anesthetic Plan: MAC: Disposition: Standard PACU
--- NOTE | 2023-02-10 08:53 | HO.PNOPHT ---
Ophthalmology Procedure Procedure Date of Service: 02/10/23 Ophthalmology Viscoelastic: Healoc Duet Dual Pack Pro Ophthalmology Lenses: TECNIS [id number] (21.5) Procedure Notes: PREOPERATIVE DIAGNOSIS: Decreased visual acuity right eye secondary to cataract POSTOPERATIVE DIAGNOSIS: Same PROCEDURE: Right cataract extraction with intraocular lens insertion SURGEON: Saurav Chaney M.D. ANESTHESIA: Topical/MAC ESTIMATED BLOOD LOSS: None COMPLICATIONS: None After obtaining informed consent, the patient was brought to the operating room suite and placed in the supine position. After adequate sedation per anesthesia, topical drops of Tetracaine were given to the right eye. The eye was then prepped and draped in the usual sterile fashion. The operating room microscope was then positioned over the operative eye and a lid speculum placed. A paracentesis was created. Viscoelastic was then instilled into the anterior chamber. A three plane incision was then created temporally, utilizing a 2.85 mm keratome. Capsulotomy forceps were then utilized to create a circular tear capsulotomy. Hydrodissection and hydrodelineation were carried out until adequate mobilization of the nucleus occurred. Phacoemulsification was then utilized to remove the dense central nucleus followed by removal of the cortical material utilizing the automated aspiration irrigation unit. Viscoelastic was instilled into the posterior capsular bag followed by placement of a posterior chamber intraocular lens without difficulty. The residual Viscoelastic was then removed utilizing the automated IA machine. The wound was checked and found to be watertight. The patient tolerated the procedure well and the lid speculum was removed. Intracameral injection of Vigamox 0.1 mL followed by a subtenon injection of Kenalog-40 0.2 mL were administered. The patient will be seen in the a.m.
[2023-02-10 09:13] VITALS: BP 145/78; PULSE 64; RESP 16; TEMP 36.3; O2SAT 100
== END 2023-02-10 09:18 | disposition home or self-care (01) ==
PROVIDERS: PCP Internal Medicine; Visit Provider Ophthalmology
PROC: (CPT 66985; principal; 2023-02-10 09:10)
DX: H25.11 Age-related nuclear cataract, right eye (principal); I10 Essential (primary) hypertension; Z86.73 Personal history of transient ischemic attack (TIA), and cerebral infarction without residual deficits
CPT/HCPCS: 66984; J2250; J3010; J3301; V2632

== ENCOUNTER → 2023-03-18 08:53 | Outpatient (BNVA) | payer MEDICARE, MEDICAID, SELFPAY | PROVIDERS: PCP Internal Medicine; Visit Provider Advanced Practice Midwife ==

== ENCOUNTER 2023-07-01 10:40 | Outpatient (AMB) | payer MEDICARE, MEDICAID, SELFPAY ==
--- NOTE | 2023-07-01 10:42 | MHC.PC.OV ---
Vital Signs 07/01/23 10:44 Height 5 ft 5 in Weight 138 lb 2 oz BMI 23.0 BP 108/72 Blood Pressure Location Rt brachial Position Sitting Pulse 87 Pulse Source Pulse Oximeter Pulse Oximetry (%) 97 Oxygen Delivery Method Room Air Intake Visit Reasons: 3 Month follow up Allergies No Known Allergies Allergy (Verified 07/01/23 10:44) Medication List - Last Reconciled 07/01/23 by Moustapha Mariee MD acetaminophen (Tylenol) 650 mg (2 x 325 mg) PO TID PRN 90 days aspirin 81 mg PO DAILY 90 days atorvastatin 20 mg PO DAILY [id number] 325 mg-12.5 mcg -2.75 mg (Citracal-D3 Maximum Plus) 1 tab PO BID cetirizine 10 mg PO DAILY 90 days clotrimazole-betamethasone 1-0.05 % 1 appl topical DAILY famotidine 20 mg PO BEDTIME 90 days irbesartan 75 mg PO DAILY 90 days Tobacco use date assessed: 07/01/23 Fall risk assessment: 2 + Falls in past year Last assessed Fall Risk: 07/01/23 Dental Screening Dental Screen Date: 07/01/23 Did you have a dental visit in the last 12 months?: No Did you have a dental problem in the last 6 months where you did not have access to dental care?: No Was dental information given to patient?: No HPI 3 Month follow up HPI Details Patient is 72-year-old female came in today for her regular follow-up appointment Patient had a cataract surgery 3 months ago right side Patient says that her vision is still not clear, the other day she slipped and fell and hit her upper lip to the seeing Her lip is swollen today. However there is no bleeding it is healing gradually. She said that she will call the eye doctor and book appointment for follow-up Patient is due for labs last set of lab was early this year Hypertension:? Patient is on irbesartan 75 mg, blood pressure is stable patient is tolerating medication. Lipid disorder:? Lipids are controlled with atorvastatin 20 mg and diet controlled no side effects. Allergies are stable with medications Arthrosis:? Patient also take Tylenol off and on, Chronic back pain: Stable. Physical exam in October [facility] Medical History Back pain Cataract Elevated cholesterol HTN (hypertension) Hyperparathyroidism Hypoparathyroidism Osteoporosis TIA (transient ischemic attack) Vitamin D deficiency Surgical History H/O colonoscopy History of back surgery History of hysteroscopy History of parathyroid surgery Hx of section Hx of neck surgery Hx of removal of neck cyst Family History Father Diabetes Hypertension Mother Diabetes Hypertension Family/Other Colon cancer Social History Household Members Other:: uncle Housing: Apartment Are you a primary long term care social worker to a significant other at home: No Do you presently have visiting nurse or other home services: No Alcohol intake: current Alcohol intake frequency: does not drink Patient Tobacco Use Status: Never used Tobacco e-Cigarette/Vaping Use: Never Used service: No Current occupational status: employed Cognitive needs: No Hearing needs: No Vision needs: Yes Questionnaire PHQ-9 Over the last 2 weeks, how often have you been bothered by any of the following problems? 1. Little interest or pleasure in doing things: not at all 2. Feeling down, depressed, or hopeless: not at all 3. Trouble falling or staying asleep, or sleeping too much: not at all 4. Feeling tired or having little energy: not at all 5. Poor appetite or overeating: not at all 6. Feeling bad about yourself - or that you are a failure or have let yourself or your family down: not at all 7. Trouble concentrating on things, such as reading the newspaper or watching television: not at all 8. Moving or speaking so slowly that other people could have noticed. Or the opposite - being so fidgety or restless that you have been moving around a lot more than usual: not at all 9. Thoughts that you would be better off or of hurting yourself in some way: not at all Total score: 0 Depression Screening Interpretation: Negative 94095 - PHQ-9 Billing: Yes Source: Developed by Drs. Doc Douglas, Di Villanueva, Marvin Thorne and colleagues, with an educational alfa from [employer]. Thrive Questionnaire Date Thrive assessed: 08/29/23 I am a: Patient What is your living situation today?: I have a steady place to live Within the past 12 months, did the food you bought not last and you didn't have the money to get more?: Often true Within the past 12 months, did you worry whether your food would run out before you got money to buy more?: Often true Do you have trouble getting transportation to medical appointments?: No Do you have trouble paying your heating and electricity bill?: No Do you have trouble taking care of your child, family member or friend?: No Do you have trouble with day-to-day activities such as bathing, preparing meals, shopping, managing finances, etc.?: No Are you currently unemployed and looking for a job?: No Are you interested in more education?: No AUDIT C Alcohol Use Questionnaire (AUDIT-C) 1. How often do you have a drink containing alcohol?: Never 3. How often do you have six or more drinks on one occasion?: Never Total Score: 0 Score Reviewed/Action Taken: Yes PARI-7 AMB Questionnaire PARI-7 Date PARI - 7 assessed: 07/01/23 Feeling nervous, anxious, or on edge: 0 = Not at all Not being able to stop or control worryin = Not at all Worrying too much about different things: 0 = Not at all Trouble relaxin = Not at all Being so restless that it is hard to sit still: 0 = Not at all Becoming easily annoyed or irritable: 0 = Not at all Feeling afraid as if something awful might happen: 0 = Not at all Total PARI-7 score (0-4 normal; 5-9 mild; 10-14 moderate; 15-21 severe): 0 Source: Developed by Drs. Doc Douglas, Di Villanueva, Marvin Thorne and colleagues, with an educational alfa from [employer]. PARI-7 Assessment Billing PARI-7 Assessment Tool: PARI-7 Assessment 36221 Review of Systems Const Denies chills and Denies fever(s) ENT Denies epistaxis and Denies nasal discharge Card Denies chest pain Resp Denies chest congestion, Denies cough and Denies hemoptysis GI Denies diarrhea and Denies nausea Skin/Breast Denies rash Neuro Reports no additional complaints Psych Reports no additional complaints Endo Reports no additional complaints Physical exam (Primary Care) Vital Signs: Last Vital Signs Pulse 87 07/01/23 10:44 BP 108/72 07/01/23 10:44 Pulse Ox 97 07/01/23 10:44 Oxygen Delivery Method Room Air 07/01/23 10:44 BMI result Body Mass Index 23.0 Tobacco/Smoking Status: Tobacco use Status Tobacco use date assessed 07/01/23 07/01/23 10:46 Patient Tobacco Use Status Never used Tobacco 07/01/23 10:42 e-Cigarette/Vaping Use Never Used 07/01/23 10:42 PHQ-9: PHQ-9 Score PHQ-9: Total score 0 07/01/23 11:08 Depression Screening Interpretation: Negative Thrive Assessment: Date of Thrive Assessment Date Thrive assessed 07/01/23 07/01/23 11:08 Const General: cooperative, comfortable and no acute distress Orientation/consciousness: patient oriented x3 HENMT Head: Yes normocephalic Nose image: 1. Swollen no active bleeding Eyes General: appearance normal, both eyes and all related structures Neck Neck: Yes supple Resp Effort & Inspection: normal respiratory effort, no cough and no stridor Cardio Rhythm: regular rhythm Heart sounds: S1 normal heart sound present and S2 normal heart sound present Skin General skin exam: turgor normal Neuro General: patient oriented x3, tone normal and moves all extremities Extrem Right lower extremity: no edema Left lower extremity: no edema Assessment and Plan Assessment & Plan (1) Hypertension, essential: Code(s): I10 - Essential (primary) hypertension (2) Lipid disorder: Code(s): E78.9 - Disorder of lipoprotein metabolism, unspecified (3) Environmental allergies: Code(s): Z91.09 - Other allergy status, other than to drugs and biological substances (4) Osteoporosis: Code(s): M81.0 - Age-related osteoporosis without current pathological fracture (5) Arthrosis: Code(s): M19.90 - Unspecified osteoarthritis, unspecified site (6) Hyperparathyroidism: Code(s): E21.3 - Hyperparathyroidism, unspecified (7) Vitamin D deficiency: Code(s): E55.9 - Vitamin D deficiency, unspecified (8) Chronic lower back pain: Code(s): M54.50 - Low back pain, unspecified; G89.29 - Other chronic pain (9) Lip injury: Code(s): S09.93XA - Unspecified injury of face, initial encounter (10) Blurred vision, right eye: Code(s): H53.8 - Other visual disturbances Plan Patient is 72-year-old female came in today for her regular follow-up appointment Patient had a cataract surgery 3 months ago right side Patient says that her vision is still not clear, the other day she slipped and fell and hit her upper lip to the seeing Her lip is swollen today. However there is no bleeding it is healing gradually. She said that she will call the eye doctor and book appointment for follow-up Patient is due for labs last set of lab was early this year Hypertension:? Patient is on irbesartan 75 mg, blood pressure is stable patient is tolerating medication. Lipid disorder:? Lipids are controlled with atorvastatin 20 mg and diet controlled no side effects. Allergies are stable with medications Arthrosis:? Patient also take Tylenol off and on, Chronic back pain: Stable. Physical exam in October Orders: Orders Comprehensive Met. Panel Today E21.3 - Hyperparathyroidism, unspecified, E55.9 - Vitamin D deficiency, unspecified, E78.9 - Disorder of lipoprotein metabolism, unspecified, I10 - Essential (primary) hypertension, M19.90 - Unspecified osteoarthritis, unspecified site, M81.0 - Age-related osteoporosis without current pathological fracture, Z20.5 - Contact with and (suspected) exposure to viral hepatitis, Z91.09 - Other allergy status, other than to drugs and biological substances LDL Cholesterol Direct Today E21.3 - Hyperparathyroidism, unspecified, E55.9 - Vitamin D deficiency, unspecified, E78.9 - Disorder of lipoprotein metabolism, unspecified, I10 - Essential (primary) hypertension, M19.90 - Unspecified osteoarthritis, unspecified site, M81.0 - Age-related osteoporosis without current pathological fracture, Z20.5 - Contact with and (suspected) exposure to viral hepatitis, Z91.09 - Other allergy status, other than to drugs and biological substances Complete Blood Count Auto Diff Today E21.3 - Hyperparathyroidism, unspecified, E55.9 - Vitamin D deficiency, unspecified, E78.9 - Disorder of lipoprotein metabolism, unspecified, I10 - Essential (primary) hypertension, M19.90 - Unspecified osteoarthritis, unspecified site, M81.0 - Age-related osteoporosis without current pathological fracture, Z20.5 - Contact with and (suspected) exposure to viral hepatitis, Z91.09 - Other allergy status, other than to drugs and biological substances Vitamin D 25-OH (D2 and D3) Today E55.9 - Vitamin D deficiency, unspecified Coding Level of Care Code Est Pt Level 4 (01839) Diagnoses Hypertension, essential I10 Lipid disorder E78.9 Environmental allergies Z91.09 Osteoporosis M81.0 Arthrosis M19.90 Hyperparathyroidism E21.3 Vitamin D deficiency E55.9 Chronic lower back pain M54.50; G89.29 Lip injury S09.93XA Blurred vision, right eye H53.8 Additional Codes PARI-7 Assessment Billing - PARI-7 Assessment Tool: PARI-7 Assessment [id number] ([id number])
[2023-07-01 10:44] VITALS: BP 108/72; PULSE 87; O2SAT 97; BMI 23.0
== END 2023-07-01 11:38 | disposition home or self-care (01) ==
PROVIDERS: PCP Internal Medicine; Visit Provider Internal Medicine
DX: I10 Essential (primary) hypertension (principal); Z91.09 Other allergy status, other than to drugs and biological substances; E21.3 Hyperparathyroidism, unspecified; E55.9 Vitamin D deficiency, unspecified; S09.93XA Unspecified injury of face, initial encounter; E78.9 Disorder of lipoprotein metabolism, unspecified; M81.0 Age-related osteoporosis without current pathological fracture; M19.90 Unspecified osteoarthritis, unspecified site; M54.50 Low back pain, unspecified; G89.29 Other chronic pain; H53.8 Other visual disturbances
CPT/HCPCS: 99214

== ENCOUNTER 2023-07-01 11:11 | Outpatient (REF) | payer MEDICARE, MEDICAID, SELFPAY ==
[2023-07-01 13:48] LABS: MANUAL DIFF FLAG NO
[2023-07-01 13:52] LABS: Basophils Percent Auto 0.3 % (0-2); Eosinophils Absolute Auto 0.2 X10*3/uL (0.0-0.4); Eosinophils Percent Auto 3.2 % (0-4); Hematocrit 39.6 % (37.0-47.0); Hemoglobin 12.9 g/dl (12.0-16.0); Imm Gran Abs Auto 0.02 X10*3/uL (0.00-0.03); Imm Gran Pct Auto 0.3 % (0.0-0.4); Lymphocytes Absolute Auto 2.2 X10*3/uL (1.2-4.9); Lymphocytes Percent Auto 33.1 % (20-40); Mean Corpuscular HGB Conc 32.6 g/dl (31.0-35.0); Mean Corpuscular Hemoglobin 29.7 pg (27.0-33.0); Mean Platelet Volume 10.1 fL (9.4-12.3); Monocytes Absolute Auto 0.6 X10*3/uL (0.1-1.2); Monocytes Percent Auto 9.1 % (2-11); Neutrophils Absolute Auto 3.6 x10*3/uL (2.0-8.3); Platelet Count 279 X10*3/uL (160-400); Red Blood Count 4.35 X10*6/uL (4.20-5.50); Red Cell Distribution Width 13.2 % (11.0-16.0); White Blood Count 6.6 X10*3/uL (4.8-10.8)
[2023-07-01 14:06] LABS: Alanine Aminotransferase 20 U/L (0-31); Albumin Level 4.5 g/dL (3.5-5.0); Alkaline Phosphatase 57 U/L (39-117); Anion Gap 12 (12-20); Aspartate Amino Transferase 26 U/L (5-31); Bilirubin Total 0.9 mg/dL (0.0-1.0); Blood Urea Nitrogen 14 mg/dL (9-16); Calcium 8.9 mg/dL (8.4-10.2); Carbon Dioxide 29 mmol/L (22-29); Chloride 105 mmol/L (96-108); Estimated Glomerular Filt Rate > 60; Glucose Random 82 mg/dL (60-115); Sodium 142 mmol/L (135-145); Total Protein 7.4 g/dL (6.5-8.0)
[2023-07-02 16:59] LABS: LDL Cholesterol Direct 92 mg/dL (<100)
[2023-07-05 13:58] LABS: Vitamin D 25-OH, D2 <4 ng/mL; Vitamin D 25-OH, D3 44 ng/mL; Vitamin D 25-OH, Total 44 ng/mL (30-100)
== END 2023-07-01 11:12 | disposition home or self-care (01) ==
LOC: HO.HMGCLDS 11:11
PROVIDERS: PCP Internal Medicine; Visit Provider Internal Medicine
DX: E21.3 Hyperparathyroidism, unspecified (principal); E55.9 Vitamin D deficiency, unspecified; E78.9 Disorder of lipoprotein metabolism, unspecified; I10 Essential (primary) hypertension; M19.90 Unspecified osteoarthritis, unspecified site; M81.0 Age-related osteoporosis without current pathological fracture; Z20.5 Contact with and (suspected) exposure to viral hepatitis; Z91.09 Other allergy status, other than to drugs and biological substances
CPT/HCPCS: 36415; 80053; 82306; 83721; 85025

== ENCOUNTER 2023-10-03 10:12 | Outpatient (REF) | payer MEDICARE, SELFPAY ==
--- NOTE | ~2023-10-03 | MM_ITS ---
EXAMINATION: BONE DENSITOMETRY CLINICAL INDICATION: Age-related osteoporosis without current pathological fracture. COMPARISON: Previous BD dated 06/19/2021 and baseline BD dated 09/30/2007. TECHNIQUE: Using a Principle Power DXA System (software version: 13.1) manufactured by [employer], dual-energy x-ray absorptiometry was performed of the lumbar spine and left hip. The images are of good technical quality. Summary results are attached. FINDINGS: LEFT FEMUR, NECK: Current: BMD 0.610 g/cm2, Z-score -1.3, T-score -3.1, osteoporosis. Prior: BMD 0.597 g/cm2. Baseline: BMD 0.745 g/cm2. LEFT FEMUR, TOTAL: Current: BMD 0.691 g/cm2, Z-score -0.9, T-score -2.5, osteoporosis, 4.9% increase from previous, 18.7% decrease from baseline (<5% change is not significant). Prior: BMD 0.659 g/cm2. Baseline: BMD 0.850 g/cm2. AP SPINE L1-L3 (excluding L4): The data of L1-L4 has been changed to exclude the L4 vertebral body, because metallic hardware at this level may cause overestimation of lumbar spine density. Current: BMD 0.927 g/cm2, Z-score -0.2, T-score -2.0, osteopenia, 1.6% decrease from previous, 13.6% decrease from baseline (<5% change is not significant). Prior: BMD 0.942 g/cm2. Baseline: BMD 1.073 g/cm2. IDENTIFIED RISK FACTORS: Menopause. HISTORY OF FRACTURE: None listed. MEDICATIONS: Calcium supplements or multivitamin, vitamin D. MM/XR DEXA axial skeleton IMPRESSION: 1. DIAGNOSIS: Osteoporosis based on the lowest T-score value of -3.1 in the femoral neck applying World Health Organization criteria. 2. 10-YEAR FRACTURE RISK PREDICTION, FRAX: According to the guidelines, FRAX calculation should only be performed on patients in the osteopenia bone density category. Therefore, FRAX was not performed on this patient. 3. Treatment Recommendations: NOF guidelines recommend consideration for treatment in postmenopausal women and men age 50 and older presenting with the following: -A hip or vertebral (clinical or morphometric) fracture. -T-score less than or equal to -2.5 at the femoral neck or spine after appropriate evaluation to exclude secondary causes. -Low bone mass at the hip or spine and a 10-year fracture probability by FRAX of greater than or equal to 3% for hip fracture or greater than or equal to 20% for major osteoporotic fracture based on the [place] adapted WHO algorithm. 4. Other Recommendations: All treatment decisions require clinical judgment and consideration of individual patient factors, including patient preferences, comorbidities, previous drug use, risk factors not captured in the FRAX model (e.g. frailty, falls, vitamin D deficiency, increased bone turnover, interval significant decline in bone density) and possible under or overestimation of fracture risk by FRAX. Additional medical evaluation for secondary cause of low bone mineral density may be appropriate. FUTURE SCAN RECOMMENDATION: People with diagnosed cases of osteoporosis or at high risk for fracture should have regular bone mineral density tests. For patients eligible for Medicare, routine testing is allowed once every 2 years. The testing frequency can be increased to one year for patients who have rapidly progressing disease, those who are receiving or discontinuing medical therapy to restore bone mass, or have additional risk factors.
== END 2023-10-03 10:13 | disposition home or self-care (01) ==
LOC: HO.MAMMO 10:12
PROVIDERS: PCP Internal Medicine; Visit Provider Internal Medicine Endocrinology, Diabetes & Metabolism
DX: Z12.31 Encounter for screening mammogram for malignant neoplasm of breast (principal); Z13.820 Encounter for screening for osteoporosis; Z78.0 Asymptomatic menopausal state; M81.0 Age-related osteoporosis without current pathological fracture
CPT/HCPCS: 77063; 77067; 77080

== ENCOUNTER → 2023-10-03 10:30 | Outpatient (BNV) | payer MEDICARE, SELFPAY | PROVIDERS: PCP Internal Medicine; Visit Provider Radiology Diagnostic Radiology | DX: Z12.31 Encounter for screening mammogram for malignant neoplasm of breast (principal) | CPT/HCPCS: 77063; 77067 ==

== ENCOUNTER 2023-10-17 09:10 | Outpatient (AMB) | payer MEDICARE, MEDICAID, SELFPAY ==
[2023-10-17 09:15] VITALS: BP 112/74; PULSE 72; O2SAT 96; BMI 22.7
--- NOTE | 2023-10-17 09:15 | A.OFFPC_ITS ---
Vital Signs 10/17/23 09:15 Height 5 ft 5 in Weight 136 lb 4 oz BMI 22.7 BP 112/74 Blood Pressure Location Lt brachial Position Sitting Pulse 72 Pulse Source Pulse Oximeter Pulse Oximetry (%) 96 Oxygen Delivery Method Room Air Intake Visit Reasons: 4 Month follow up Allergies No Known Allergies Allergy (Verified 10/17/23 09:17) Medication List - Last Reconciled 10/17/23 by Moustapha Mariee MD acetaminophen (Tylenol) 650 mg (2 x 325 mg) PO TID PRN 90 days aspirin 81 mg PO DAILY 90 days atorvastatin 20 mg PO DAILY [id number] 325 mg-12.5 mcg -2.75 mg (Citracal-D3 Maximum Plus) 1 tab PO BID cetirizine 10 mg PO DAILY 90 days clotrimazole-betamethasone 1-0.05 % 1 appl topical DAILY famotidine 20 mg PO BEDTIME 90 days irbesartan 75 mg PO DAILY 90 days Tobacco use date assessed: 10/17/23 Fall risk assessment: No Falls in past year Last assessed Fall Risk: 10/17/23 Dental Screening Dental Screen Date: 10/17/23 Did you have a dental visit in the last 12 months?: Yes Did you have a dental problem in the last 6 months where you did not have access to dental care?: No Was dental information given to patient?: Patient has dentist HPI 4 Month follow up HPI Details Patient is 72-year-old female came in today for her regular follow-up appointment Hyperparathyroidism management through endocrinology Bone density shows score of -3.1, it was-3.2 before Mammogram within normal limit Hypertension:? Patient is on irbesartan 75 mg, blood pressure is stable patient is tolerating medication. Lipid disorder:? Lipids are controlled with atorvastatin 20 mg and diet controlled no side effects. Allergies are stable with medications Arthrosis:? Patient also take Tylenol off and on, Chronic back pain: Stable. Labs before next visit in February [facility] Medical History TIA (transient ischemic attack) Back pain Elevated cholesterol HTN (hypertension) Cataract Hypoparathyroidism Vitamin D deficiency Osteoporosis Hyperparathyroidism Surgical History History of hysteroscopy H/O colonoscopy History of back surgery History of parathyroid surgery Hx of neck surgery Hx of removal of neck cyst Hx of section Family History Father Diabetes Hypertension Mother Diabetes Hypertension Family/Other Colon cancer Social History Household Members Other:: uncle Housing: Apartment Are you a primary med care manager to a significant other at home: No Do you presently have visiting nurse or other home services: No Alcohol intake: current Alcohol intake frequency: does not drink Patient Tobacco Use Status: Never used Tobacco e-Cigarette/Vaping Use: Never Used service: No Current occupational status: employed Cognitive needs: No Hearing needs: No Vision needs: Yes Questionnaire PHQ-9 Over the last 2 weeks, how often have you been bothered by any of the following problems? 1. Little interest or pleasure in doing things: not at all 2. Feeling down, depressed, or hopeless: not at all 3. Trouble falling or staying asleep, or sleeping too much: not at all 4. Feeling tired or having little energy: not at all 5. Poor appetite or overeating: not at all 6. Feeling bad about yourself - or that you are a failure or have let yourself or your family down: not at all 7. Trouble concentrating on things, such as reading the newspaper or watching television: not at all 8. Moving or speaking so slowly that other people could have noticed. Or the opposite - being so fidgety or restless that you have been moving around a lot more than usual: not at all 9. Thoughts that you would be better off or of hurting yourself in some way: not at all Total score: 0 Depression Screening Interpretation: Negative Depression Screening Done: Yes 16660 - PHQ-9 Billing: Yes Source: Developed by Drs. Doc Douglas, Di Villanueva, Marvin Thorne and colleagues, with an educational alfa from [employer]. Thrive Questionnaire Date Thrive assessed: 07/01/23 AUDIT C Alcohol Use Questionnaire (AUDIT-C) 1. How often do you have a drink containing alcohol?: Never 3. How often do you have six or more drinks on one occasion?: Never Total Score: 0 Score Reviewed/Action Taken: Yes PARI-7 AMB Questionnaire PARI-7 Date PARI - 7 assessed: 07/01/23 Source: Developed by Drs. Doc Douglas, Di Villanueva, Marvin Thorne and colleagues, with an educational alfa from [employer]. Review of Systems Const Denies chills and Denies fever(s) ENT Denies epistaxis and Denies nasal discharge Card Denies chest pain Resp Denies chest congestion, Denies cough and Denies hemoptysis GI Denies diarrhea and Denies nausea Skin/Breast Denies rash Neuro Reports no additional complaints Psych Reports no additional complaints Endo Reports no additional complaints Physical exam (Primary Care) Vital Signs: Last Vital Signs Pulse 72 10/17/23 09:15 BP 112/74 10/17/23 09:15 Pulse Ox 96 10/17/23 09:15 Oxygen Delivery Method Room Air 10/17/23 09:15 BMI result Body Mass Index 22.7 Tobacco/Smoking Status: Tobacco use Status Tobacco use date assessed 10/17/23 10/17/23 09:17 Patient Tobacco Use Status Never used Tobacco 10/17/23 09:17 e-Cigarette/Vaping Use Never Used 10/17/23 09:17 PHQ-9: PHQ-9 Score PHQ-9: Total score 0 10/17/23 09:51 Depression Screening Interpretation: Negative Thrive Assessment: Date of Thrive Assessment Date Thrive assessed 07/01/23 10/17/23 09:17 Const General: cooperative, comfortable and no acute distress Orientation/consciousness: patient oriented x3 HENMT Head: Yes normocephalic Eyes General: appearance normal, both eyes and all related structures Neck Neck: Yes supple Resp Effort & Inspection: normal respiratory effort, no cough and no stridor Cardio Rhythm: regular rhythm Heart sounds: S1 normal heart sound present and S2 normal heart sound present Skin General skin exam: turgor normal Neuro General: patient oriented x3, tone normal and moves all extremities Extrem Right lower extremity: no edema Left lower extremity: no edema Assessment and Plan Assessment & Plan (1) Hypertension, essential: Code(s): I10 - Essential (primary) hypertension (2) Lipid disorder: Code(s): E78.9 - Disorder of lipoprotein metabolism, unspecified (3) Environmental allergies: Code(s): Z91.09 - Other allergy status, other than to drugs and biological substances (4) Pre-diabetes: Code(s): R73.03 - Prediabetes (5) Osteoporosis: Code(s): M81.0 - Age-related osteoporosis without current pathological fracture Qualifiers: Osteoporosis type: age-related Presence of current pathological fracture: without current pathological fracture Qualified Code(s): M81.0 - Age- related osteoporosis without current pathological fracture (6) Arthrosis: Code(s): M19.90 - Unspecified osteoarthritis, unspecified site (7) Hyperparathyroidism: Code(s): E21.3 - Hyperparathyroidism, unspecified (8) Vitamin D deficiency: Code(s): E55.9 - Vitamin D deficiency, unspecified (9) Chronic lower back pain: Code(s): M54.50 - Low back pain, unspecified; G89.29 - Other chronic pain Qualifiers: Back pain laterality: midline Sciatica presence: without sciatica Qualified Code(s): M54.50 - Low back pain, unspecified; G89.29 - Other chronic pain Plan Patient is 72-year-old female came in today for her regular follow-up appointment Hyperparathyroidism management through endocrinology Bone density shows score of -3.1, it was-3.2 before Mammogram within normal limit Hypertension:? Patient is on irbesartan 75 mg, blood pressure is stable patient is tolerating medication. Lipid disorder:? Lipids are controlled with atorvastatin 20 mg and diet controlled no side effects. Allergies are stable with medications Arthrosis:? Patient also take Tylenol off and on, Chronic back pain: Stable. Labs before next visit in February Orders: Orders Complete Blood Count Auto Diff Today E78.9 - Disorder of lipoprotein metabolism, unspecified, I10 - Essential (primary) hypertension, R73.03 - Prediabetes, Z91.09 - Other allergy status, other than to drugs and biological substances Comprehensive [place]. Panel Fast Today E78.9 - Disorder of lipoprotein metabolism, unspecified, I10 - Essential (primary) hypertension, R73.03 - Prediabetes, Z91.09 - Other allergy status, other than to drugs and biological substances Lipid Panel Today E78.9 - Disorder of lipoprotein metabolism, unspecified, I10 - Essential (primary) hypertension, R73.03 - Prediabetes, Z91.09 - Other allergy status, other than to drugs and biological substances Medications: Refilled acetaminophen (Tylenol) 650 mg (2 x 325 mg) PO TID PRN 180 tabs 3RF pain 90 days M19.90 - Unspecified osteoarthritis, unspecified site aspirin 81 mg PO DAILY 90 tabs 3RF 90 days I10 - Essential (primary) hypertension cetirizine 10 mg PO DAILY 90 tabs 1RF 90 days clotrimazole-betamethasone 1-0.05 % 1 appl topical DAILY 45 grams 0RF famotidine 20 mg PO BEDTIME 90 tabs 1RF 90 days irbesartan 75 mg PO DAILY 90 tabs 1RF 90 days atorvastatin 20 mg PO DAILY 90 tabs 0RF Coding Level of Care Code Est Pt Level 4 (35009) Diagnoses Hypertension, essential I10 Lipid disorder E78.9 Environmental allergies Z91.09 Pre-diabetes R73.03 Age-related osteoporosis without current pathological fracture M81.0 Osteoporosis type: age-related Presence of current pathological fracture: without current pathological fracture Arthrosis M19.90 Hyperparathyroidism E21.3 Vitamin D deficiency E55.9 Chronic midline low back pain without sciatica M54.50; G89.29 Back pain laterality: midline Sciatica presence: without sciatica
== END 2023-10-17 10:56 | disposition home or self-care (01) ==
PROVIDERS: PCP Internal Medicine; Visit Provider Internal Medicine
DX: I10 Essential (primary) hypertension (principal); E78.9 Disorder of lipoprotein metabolism, unspecified; E21.3 Hyperparathyroidism, unspecified; Z91.09 Other allergy status, other than to drugs and biological substances; R73.03 Prediabetes; M81.0 Age-related osteoporosis without current pathological fracture; M19.90 Unspecified osteoarthritis, unspecified site; E55.9 Vitamin D deficiency, unspecified; M54.50 Low back pain, unspecified; G89.29 Other chronic pain
CPT/HCPCS: 99214

== ENCOUNTER 2023-11-27 08:33 | Outpatient (AMB) | payer MEDICARE, MEDICAID, SELFPAY ==
--- NOTE | 2023-11-27 08:34 | MHC.OFFVIS ---
Intake Vital Signs 11/27/23 08:35 Height 5 ft 5 in Weight 142 lb 13.753 oz BMI 23.8 BP 138/78 Blood Pressure Location Lt brachial Position Sitting Pulse 61 Pulse Source Pulse Oximeter Intake Visit Reasons: F/U Hypoparathyroidism/LVM Intake Note: Patient last seen by Dr. Pineda on 10/21/22. Patient present today for Hypoparathyroidism follow up visit. Purchasing Analyst Required: No Accompanied by: Self / Same As Patient Allergies No Known Allergies Allergy (Verified 11/27/23 08:39) Medication List - Last Reconciled 11/27/23 by Doc Ayala MD acetaminophen (Tylenol) 650 mg (2 x 325 mg) PO TID PRN 90 days aspirin 81 mg PO DAILY 90 days atorvastatin 20 mg PO DAILY [id number]-copper-bianca 325 mg-12.5 mcg -2.75 mg (Citracal-D3 Maximum Plus) 1 tab PO BID cetirizine 10 mg PO DAILY 90 days clotrimazole-betamethasone 1-0.05 % 1 appl topical DAILY famotidine 20 mg PO BEDTIME 90 days irbesartan 75 mg PO DAILY 90 days HPI HPI Comments History of Present Illness Details 71 YO Female with PMHx HTN, HLD and recent TIA is seen in F/U for Osteoporosis and Hyperparathyroidism. She is S/P a subtotal parathyroidectomy 09/12/2020. The patient last saw Dr. Pineda 10/21/2022 She was first made aware of the diagnosis of Osteoporosis in 2019, but review of her records reveal that this was first diagnosed on DXA in 2012. She has Osteoporosis of the hip and Forearm, and Osteopenia of the spine. Her Osteoporosis of the hip is severe, with a T score of -4.4 of the LFN and -4.0 of the L total hip. This has declined 24.6% from 2013. Labs do reveal mild hypercalcemia in the past. After her initial visit we completed workup for hyperparathyroidism, and she does appear to have a mild degree of hyperparathyroidism. Calcium is high normal, higher than expected for her age, with PTH inappropriately normal. Bone deminieralization is consistent with the pattern expected with hyperparathyroidism. She was referred to Dr. Ahn and underwent Sestamibi and 4D CT scan. This revealed no obvious adenoma within the neck, but there was concern for a large mediastinal parathyroid near the tracheal bifurcation. She was subsequently referred to CT Surgeon Dr. Lisa Boyle, and underwent CT surgery to excise this gland. Unfortunately this was a reactive lymph node, and not a parathyroid adenoma. She then underwent exploratory neck surgery with Dr. Ahn 09/12/2020 which revealed 4 gland parathyroid hyperplasia. She had a subtotal parathyroidectomy with just a remnant of the L superior gland remaining. Intraoperative PTH declined from 59-14, indicating cure. 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 She has since been tapered off of this. She does remain on Citracal 1 tab PO BID. She does report cramping in her hands and legs, but denies any paresthesias. She has never been treated for her Osteoporosis. UTD on dental cleanings and sees dentist every 6 months. No planned upcoming dental work or extractions. DXA dated: 06/19/2021 FINDINGS: AP SPINE L1-L3 (excluding L4): The data of L1-L4 has been changed to exclude the L4 vertebral body, because hardware at this level may cause overestimation of lumbar spine density. Current: BMD 0.942 g/cm2, Z-score -0.2, T-score -1.9, osteopenia, 1.0% increase from previous, 12.2% decrease from baseline (<5% change is not significant). Prior: BMD 0.933 g/cm2. Baseline: BMD 1.073 g/cm2. LEFT FEMUR, NECK: Current: BMD 0.597 g/cm2, Z-score -1.5, T-score -3.2, osteoporosis. Prior: BMD 0.432 g/cm2. Baseline: BMD 0.745 g/cm2. LEFT FEMUR, TOTAL: Current: BMD 0.659 g/cm2, Z-score -1.3, T-score -2.8, osteoporosis, 29.5% increase from previous, 22.5% decrease from baseline (<5% change is not significant). Prior: BMD 0.509 g/cm2. Baseline: BMD 0.850 g/cm2. Labs: Laboratory Tests 10/18/21 10/17/22 10/17/22 09:36 07:45 07:45 Estimated GFR > 60 Calcium 8.9 Albumin 4.4 4.5 25-OH Vitamin D To monse 40.3 46.5 PTH Intact 30 Calcium (PTH Intac t) 8.5 L Taking calcium and vitamin D. No fractures since last visit [facility] Medical History TIA (transient ischemic attack) Back pain Elevated cholesterol HTN (hypertension) Cataract Hypoparathyroidism Vitamin D deficiency Osteoporosis Hyperparathyroidism Surgical History History of hysteroscopy H/O colonoscopy History of back surgery History of parathyroid surgery Hx of neck surgery Hx of removal of neck cyst Hx of section Family History Father Diabetes Hypertension Mother Diabetes Hypertension Family/Other Colon cancer Social History Household Members Other:: uncle Housing: Apartment Are you a primary director of healthcare systems to a significant other at home: No Do you presently have visiting nurse or other home services: No Alcohol intake: current Alcohol intake frequency: does not drink Patient Tobacco Use Status: Never used Tobacco e-Cigarette/Vaping Use: Never Used service: No Current occupational status: employed Cognitive needs: No Hearing needs: No Vision needs: Yes Physical Exam Vital Signs: Last Vital Signs Pulse 61 11/27/23 08:35 BP 138/78 11/27/23 08:35 BMI result Body Mass Index 23.8 Assessment & Plan Assessment & Plan (1) Osteoporosis: Code(s): M81.0 - Age-related osteoporosis without current pathological fracture Qualifiers: Osteoporosis type: unspecified Presence of current pathological fracture: unspecified Qualified Code(s): M81.0 - Age-related osteoporosis without current pathological fracture Plan: This 72-year-old female with a history of osteoporosis and primary hyperparathyroid who underwent exploratory neck surgery with Dr. Ahn 09/12/2020 which revealed 4 gland parathyroid hyperplasia. She had a subtotal parathyroidectomy with just a remnant of the L superior gland remaining. Intraoperative PTH declined from 59-14, indicating cure. She has residual osteoporosis on DEXA Other secondary workup for osteoporosis was negative The plan is to discuss pharmacologic options of treatment with the patient. Will continue calcium and vitamin-D supplementation. Discussed possibility of use of oral or intravenous bisphosphonate vst Prolia. Would not tend to use anabolic therapy at this point.. After a long discussion with the patient discussing different options, we are opting to go with Prolia. (2) Hyperparathyroidism: Code(s): E21.3 - Hyperparathyroidism, unspecified Plan: Management as per osteoporosis section Coding Level of Care Code Est Pt Level 3 (45970) Diagnoses Osteoporosis, unspecified osteoporosis type, unspecified pathological fracture presence M81.0 Osteoporosis type: unspecified Presence of current pathological fracture: unspecified Hyperparathyroidism E21.3
[2023-11-27 08:35] VITALS: BP 138/78; PULSE 61; BMI 23.8
--- NOTE | 2023-11-27 09:11 | AM.OFFVISNUR ---
Intake Vital Signs 11/27/23 08:35 Height 5 ft 5 in Weight 142 lb 13.753 oz BMI 23.8 BP 138/78 Blood Pressure Location Lt brachial Position Sitting Pulse 61 Pulse Source Pulse Oximeter Intake Visit Reasons: F/U Hypoparathyroidism/LVM Allergies No Known Allergies Allergy (Verified 11/27/23 08:39) Medication List - Last Reconciled 11/27/23 by Doc Ayala MD acetaminophen (Tylenol) 650 mg (2 x 325 mg) PO TID PRN 90 days aspirin 81 mg PO DAILY 90 days atorvastatin 20 mg PO DAILY [id number]-copper-bianca 325 mg-12.5 mcg -2.75 mg (Citracal-D3 Maximum Plus) 1 tab PO BID cetirizine 10 mg PO DAILY 90 days clotrimazole-betamethasone 1-0.05 % 1 appl topical DAILY famotidine 20 mg PO BEDTIME 90 days irbesartan 75 mg PO DAILY 90 days Nursing Note Met with this patient at the request of . We discussed the process of prior authorization for Prolia. Patient denied having questions. I provided the office phone number for her to call if she has questions going forward. Patient verbalizes understanding. Coding Diagnoses Osteoporosis, unspecified osteoporosis type, unspecified pathological fracture presence M81.0 Osteoporosis type: unspecified Presence of current pathological fracture: unspecified Hyperparathyroidism E21.3 Assessment & Plan Assessment & Plan (1) Osteoporosis: Code(s): M81.0 - Age-related osteoporosis without current pathological fracture Category: Medical Qualifiers: Osteoporosis type: unspecified Presence of current pathological fracture: unspecified Qualified Code(s): M81.0 - Age-related osteoporosis without current pathological fracture (2) Hyperparathyroidism: Code(s): E21.3 - Hyperparathyroidism, unspecified Category: Medical
== END 2023-11-27 09:12 | disposition home or self-care (01) ==
PROVIDERS: PCP Internal Medicine; Visit Provider Internal Medicine Endocrinology, Diabetes & Metabolism
DX: M81.0 Age-related osteoporosis without current pathological fracture (principal); E21.3 Hyperparathyroidism, unspecified
CPT/HCPCS: 99213

== ENCOUNTER → 2023-11-27 08:33 | Outpatient (BNVA) | payer MEDICARE, MEDICAID, SELFPAY | PROVIDERS: Visit Provider Internal Medicine Endocrinology, Diabetes & Metabolism | DX: E21.3 Hyperparathyroidism, unspecified (principal); M81.0 Age-related osteoporosis without current pathological fracture | CPT/HCPCS: 99212 ==

== ENCOUNTER 2024-02-17 11:34 | Outpatient (AMB) | payer MEDICARE, SELFPAY ==
[2024-02-17 11:38] VITALS: BP 128/70; PULSE 72; O2SAT 96; BMI 23.6
--- NOTE | 2024-02-17 11:38 | MHC.PC.OV ---
Vital Signs 02/17/24 11:38 Height 5 ft 5 in Weight 142 lb BMI 23.6 BP 128/70 Blood Pressure Location Lt brachial Position Sitting Pulse 72 Pulse Source Pulse Oximeter Pulse Oximetry (%) 96 Oxygen Delivery Method Room Air Intake Visit Reasons: bilateral blepharoplasty surgery~ Coremaking Machine Setter Required: No Allergies No Known Allergies Allergy (Verified 02/17/24 11:38) Medication List - Last Reconciled 02/17/24 by Moustapha Mariee MD acetaminophen (Tylenol) 650 mg (2 x 325 mg) PO TID PRN 90 days aspirin 81 mg PO DAILY 90 days atorvastatin 20 mg PO DAILY [id number]-copper-bianca 325 mg-12.5 mcg -2.75 mg (Citracal-D3 Maximum Plus) 1 tab PO BID cetirizine 10 mg PO DAILY 90 days clotrimazole-betamethasone 1-0.05 % 1 appl topical DAILY famotidine 20 mg PO BEDTIME 90 days irbesartan 75 mg PO DAILY 90 days Tobacco use date assessed: 02/17/24 Fall risk assessment: No Falls in past year Last assessed Fall Risk: 02/17/24 Dental Screening Dental Screen Date: 02/17/24 Did you have a dental visit in the last 12 months?: Yes Did you have a dental problem in the last 6 months where you did not have access to dental care?: No Was dental information given to patient?: Patient has dentist HPI bilateral blepharoplasty surgery~ HPI Details Patient is 73-year-old female with a history of hypertension, osteoporosis, lipid disorder, Allergies, chronic GERD. Came in today for clearance for bilateral blepharoplasty by Dr. Chaney on 01 of March Chart reviewed Medications reviewed Patient is doing well she is stable There is no signs of infection She is due for labs that she will have today Patient is stable for blepharoplasty PFSH Medical History TIA (transient ischemic attack) Back pain Elevated cholesterol HTN (hypertension) Cataract Hypoparathyroidism Vitamin D deficiency Osteoporosis Hyperparathyroidism Surgical History History of hysteroscopy H/O colonoscopy History of back surgery History of parathyroid surgery Hx of neck surgery Hx of removal of neck cyst Hx of section Family History Father Diabetes Hypertension Mother Diabetes Hypertension Family/Other Colon cancer Social History Household Members Other:: uncle Housing: Apartment Are you a primary healthcare corporate account director to a significant other at home: No Do you presently have visiting nurse or other home services: No Alcohol intake: current Alcohol intake frequency: does not drink Patient Tobacco Use Status: Never used Tobacco e-Cigarette/Vaping Use: Never Used service: No Current occupational status: employed Cognitive needs: No Hearing needs: No Vision needs: Yes Questionnaire PHQ-9 Over the last 2 weeks, how often have you been bothered by any of the following problems? 1. Little interest or pleasure in doing things: not at all 2. Feeling down, depressed, or hopeless: not at all 3. Trouble falling or staying asleep, or sleeping too much: not at all 4. Feeling tired or having little energy: not at all 5. Poor appetite or overeating: not at all 6. Feeling bad about yourself - or that you are a failure or have let yourself or your family down: not at all 7. Trouble concentrating on things, such as reading the newspaper or watching television: not at all 8. Moving or speaking so slowly that other people could have noticed. Or the opposite - being so fidgety or restless that you have been moving around a lot more than usual: not at all 9. Thoughts that you would be better off or of hurting yourself in some way: not at all Total score: 0 Depression Screening Interpretation: Negative Depression Screening Done: Yes 44511 - PHQ-9 Billing: Yes Source: Developed by Drs. Doc Douglas, Di Villanueva, Marvin Thorne and colleagues, with an educational alfa from [email or web address]. Thrive Questionnaire Date Thrive assessed: 02/17/24 I am a: Patient What is your living situation today?: I have a steady place to live Within the past 12 months, did the food you bought not last and you didn't have the money to get more?: Often true Within the past 12 months, did you worry whether your food would run out before you got money to buy more?: Often true Do you have trouble paying for medicines?: No Do you have trouble getting transportation to medical appointments?: No Do you have trouble paying your heating and electricity bill?: No Do you have trouble taking care of your child, family member or friend?: No Do you have trouble with day-to-day activities such as bathing, preparing meals, shopping, managing finances, etc.?: No Are you currently unemployed and looking for a job?: No Are you interested in more education?: No Please select the resources that you would like help with: None Currently or been in a relationship where the following occur: no concerns reported THRIVE Score: 2 AUDIT C Alcohol Use Questionnaire (AUDIT-C) 1. How often do you have a drink containing alcohol?: Never 3. How often do you have six or more drinks on one occasion?: Never Total Score: 0 Score Reviewed/Action Taken: Yes PARI-7 AMB Questionnaire PARI-7 Date PARI - 7 assessed: 02/17/24 Feeling nervous, anxious, or on edge: 0 = Not at all Not being able to stop or control worryin = Not at all Worrying too much about different things: 0 = Not at all Trouble relaxin = Not at all Being so restless that it is hard to sit still: 0 = Not at all Becoming easily annoyed or irritable: 0 = Not at all Feeling afraid as if something awful might happen: 0 = Not at all Total PARI-7 score (0-4 normal; 5-9 mild; 10-14 moderate; 15-21 severe): 0 Source: Developed by Drs. Doc Douglas, Di Villanueva, Marvin Thorne and colleagues, with an educational alfa from [email or web address]. PARI-7 Assessment Billing PARI-7 Assessment Tool: PARI-7 Assessment 12053 Review of Systems Const Denies chills and Denies fever(s) ENT Denies epistaxis and Denies nasal discharge Card Denies chest pain Resp Denies chest congestion, Denies cough and Denies hemoptysis GI Denies diarrhea and Denies nausea Skin/Breast Denies rash Neuro Reports no additional complaints Psych Reports no additional complaints Endo Reports no additional complaints Physical exam (Primary Care) Vital Signs: Last Vital Signs Pulse 72 02/17/24 11:38 BP 128/70 02/17/24 11:38 Pulse Ox 96 02/17/24 11:38 Oxygen Delivery Method Room Air 02/17/24 11:38 BMI result Body Mass Index 23.6 Tobacco/Smoking Status: Tobacco use Status Tobacco use date assessed 02/17/24 02/17/24 11:39 Patient Tobacco Use Status Never used Tobacco 02/17/24 11:39 e-Cigarette/Vaping Use Never Used 02/17/24 11:39 PHQ-9: PHQ-9 Score PHQ-9: Total score 0 02/17/24 11:50 Depression Screening Interpretation: Negative Thrive Assessment: Date of Thrive Assessment Date Thrive assessed 02/17/24 02/17/24 11:39 Currently or been in a relationship where the following occur: no concerns reported Const General: cooperative, comfortable and no acute distress Orientation/consciousness: patient oriented x3 HENMT Head: Yes normocephalic Eyes General: appearance normal, both eyes and all related structures Neck Neck: Yes supple Resp Effort & Inspection: normal respiratory effort, no cough and no stridor Cardio Rhythm: regular rhythm Heart sounds: S1 normal heart sound present and S2 normal heart sound present Skin General skin exam: turgor normal Neuro General: patient oriented x3, tone normal and moves all extremities Extrem Right lower extremity: no edema Left lower extremity: no edema Assessment and Plan Assessment & Plan (1) Pre-op evaluation: Code(s): Z01.818 - Encounter for other preprocedural examination (2) Hypertension, essential: Code(s): I10 - Essential (primary) hypertension (3) Lipid disorder: Code(s): E78.9 - Disorder of lipoprotein metabolism, unspecified (4) Environmental allergies: Code(s): Z91.09 - Other allergy status, other than to drugs and biological substances (5) Pre-diabetes: Code(s): R73.03 - Prediabetes (6) Osteoporosis: Code(s): M81.0 - Age-related osteoporosis without current pathological fracture Qualifiers: Osteoporosis type: unspecified Presence of current pathological fracture: unspecified Qualified Code(s): M81.0 - Age-related osteoporosis without current pathological fracture Plan Patient is 73-year-old female with a history of hypertension, osteoporosis, lipid disorder, Allergies, chronic GERD. And prediabetes Came in today for clearance for bilateral blepharoplasty by Dr. Chaney on 01 of March Chart reviewed Medications reviewed Patient is doing well she is stable There is no signs of infection She is due for labs that she will have today Patient is stable for blepharoplasty Orders: Orders Complete Blood Count Auto Diff Today E78.9 - Disorder of lipoprotein metabolism, unspecified, I10 - Essential (primary) hypertension, M81.0 - Age-related osteoporosis without current pathological fracture, R73.03 - Prediabetes, Z91.09 - Other allergy status, other than to drugs and biological substances Comprehensive Met. Panel Today E78.9 - Disorder of lipoprotein metabolism, unspecified, I10 - Essential (primary) hypertension, M81.0 - Age-related osteoporosis without current pathological fracture, R73.03 - Prediabetes, Z91.09 - Other allergy status, other than to drugs and biological substances LDL Cholesterol Direct Today E78.9 - Disorder of lipoprotein metabolism, unspecified, I10 - Essential (primary) hypertension, M81.0 - Age-related osteoporosis without current pathological fracture, R73.03 - Prediabetes, Z91.09 - Other allergy status, other than to drugs and biological substances TSH reflex Free T4 Today E78.9 - Disorder of lipoprotein metabolism, unspecified, I10 - Essential (primary) hypertension, M81.0 - Age-related osteoporosis without current pathological fracture, R73.03 - Prediabetes, Z91.09 - Other allergy status, other than to drugs and biological substances Coding Level of Care Code Est Pt Level 4 (59215) Diagnoses Pre-op evaluation Z01.818 Hypertension, essential I10 Lipid disorder E78.9 Environmental allergies Z91.09 Pre-diabetes R73.03 Osteoporosis, unspecified osteoporosis type, unspecified pathological fracture presence M81.0 Osteoporosis type: unspecified Presence of current pathological fracture: unspecified Additional Codes PARI-7 Assessment Billing - PARI-7 Assessment Tool: PARI-7 Assessment 18640 ([id number])
== END 2024-02-17 12:35 | disposition home or self-care (01) ==
PROVIDERS: PCP Internal Medicine; Visit Provider Internal Medicine
DX: Z01.818 Encounter for other preprocedural examination (principal); I10 Essential (primary) hypertension; E78.9 Disorder of lipoprotein metabolism, unspecified; Z91.09 Other allergy status, other than to drugs and biological substances; R73.03 Prediabetes; M81.0 Age-related osteoporosis without current pathological fracture
CPT/HCPCS: 99214

== ENCOUNTER 2024-02-17 12:04 | Outpatient (REF) | payer MEDICARE, SELFPAY ==
[2024-02-17 13:46] LABS: MANUAL DIFF FLAG NO
[2024-02-17 14:00] LABS: Basophils Percent Auto 0.4 % (0-2); Eosinophils Absolute Auto 0.1 X10*3/uL (0.0-0.4); Eosinophils Percent Auto 1.8 % (0-4); Hematocrit 40.3 % (37.0-47.0); Hemoglobin 13.4 g/dl (12.0-16.0); Imm Gran Abs Auto 0.02 X10*3/uL (0.00-0.03); Imm Gran Pct Auto 0.4 % (0.0-0.4); Lymphocytes Absolute Auto 2.1 X10*3/uL (1.2-4.9); Mean Corpuscular HGB Conc 33.3 g/dl (31.0-35.0); Mean Corpuscular Hemoglobin 30.5 pg (27.0-33.0); Mean Corpuscular Volume 91.6 fL (80.0-98.0); Mean Platelet Volume 9.8 fL (9.4-12.3); Monocytes Absolute Auto 0.4 X10*3/uL (0.1-1.2); Monocytes Percent Auto 7.5 % (2-11); Neutrophils Absolute Auto 2.8 x10*3/uL (2.0-8.3); Neutrophils Percent Auto 51.9 % (45-73); Platelet Count 255 X10*3/uL (160-400); Red Cell Distribution Width 13.1 % (11.0-16.0); White Blood Count 5.5 X10*3/uL (4.8-10.8)
[2024-02-17 16:38] LABS: Alanine Aminotransferase 25 U/L (0-31); Albumin Level 4.6 g/dL (3.5-5.0); Alkaline Phosphatase 64 U/L (39-117); Anion Gap 14 (12-20); Aspartate Amino Transferase 27 U/L (5-31); Bilirubin Total 0.5 mg/dL (0.0-1.0); Blood Urea Nitrogen 18 mg/dL (9-16); Calcium 8.7 mg/dL (8.4-10.2); Carbon Dioxide 29 mmol/L (22-29); Chloride 103 mmol/L (96-108); Estimated Glomerular Filt Rate > 60; Glucose Random 106 mg/dL (60-115); Potassium 4.5 mmol/L (3.3-5.1); Sodium 141 mmol/L (135-145); Total Protein 7.6 g/dL (6.5-8.0)
[2024-02-17 16:43] LABS: TSH reflex Free T4 1.36 uIU/mL (0.32-4.0)
[2024-02-19 02:54] LABS: LDL Cholesterol Direct 111 mg/dL (<100)
== END 2024-02-17 12:05 | disposition home or self-care (01) ==
LOC: HO.HMGCLDS 12:04
PROVIDERS: PCP Internal Medicine; Visit Provider Internal Medicine
DX: I10 Essential (primary) hypertension (principal); E78.9 Disorder of lipoprotein metabolism, unspecified; R73.03 Prediabetes; M81.0 Age-related osteoporosis without current pathological fracture; Z91.09 Other allergy status, other than to drugs and biological substances
CPT/HCPCS: 36415; 80053; 83721; 84443; 85025

== ENCOUNTER 2024-03-01 09:08 | Day surgery (SDC) | payer MEDICARE, SELFPAY ==
[2024-02-24 15:25] VITALS: BMI 23.6
--- NOTE | 2024-02-27 12:15 | P.CONAN_ITS ---
Documented by User: Viri Barboza NP 02/27/24 12:16 HPI - Anesthesia Eval Consult details Narrative: 73yo F for Bilateral?Blepharoplasty Medically cleared PMFSH Active Problems Active Problems: All Active Problems Blurred vision, right eye (Acute) Lip injury (Acute) Chronic lower back pain (Acute) Lack of energy (Acute) Tired (Acute) Encounter for wound care (Acute) Skin abrasion (Acute) Left knee injury (Acute) Fall (Acute) Lumbar pain (Acute) Pre-op evaluation (Acute) Exposure to viral hepatitis (Acute) Pre-diabetes (Acute) Encounter for annual routine gynecological examination (Acute) Allergic conjunctivitis (Acute) Tinea pedis (Acute) TIA (transient ischemic attack) (Acute) Routine gynecological examination (Acute) Encounter for general adult medical examination with abnormal findings (Acute) Osteoporosis (Acute) Arthrosis (Acute) Hypertension, essential (Acute) Environmental allergies (Acute) Lipid disorder (Acute) Cataract (Acute) Hypoparathyroidism (Acute) Osteoporosis (Acute) Hyperparathyroidism (Acute) Past Medical History Medical History TIA (transient ischemic attack) Back pain Elevated cholesterol HTN (hypertension) Cataract Hypoparathyroidism Vitamin D deficiency Osteoporosis Hyperparathyroidism Family History Family History Father Diabetes Hypertension Mother Diabetes Hypertension Family/Other Colon cancer Family history of problems with anesthesia: No Surgical History Surgical History Hx of cataract surgery History of hysteroscopy H/O colonoscopy History of back surgery History of parathyroid surgery Hx of neck surgery Hx of removal of neck cyst Hx of section History of Problems with Anesthesia: No Social History Social History Household Members Other:: uncle Housing: Apartment Are you a primary medicare sales representative to a significant other at home: No Do you presently have visiting nurse or other home services: No Alcohol intake: current Alcohol intake frequency: does not drink Patient Tobacco Use Status: Never used Tobacco e-Cigarette/Vaping Use: Never Used Use of substances other than those prescribed or required for medical reasons: No Advance Directives: No Advance Directives Information Provided: Yes Advance Directives on File: No service: No Current occupational status: employed Cognitive needs: No Hearing needs: No Vision needs: Yes Meds Allergies Allergy/AdvReac Type Severity Reaction Status Date / Time No Known Allergies Allergy Verified 02/17/24 11:38 Home Medications ?Medication ?Instructions ?Recorded ?Confirmed ?Last Taken ?Type calcium 325 mg-vit D3 12.5 1 tab PO BID 04/18/21 02/24/24 Unknown History mcg-zinc 2.75 [id number]-vtycbrvxf tablet (Citracal-D3 Maximum Plus) Exam Height,Weight and Vital Signs: Height 5 ft 5 in Weight 64.41 kg Assessment and Plan Assessment Anesthesia Assessment: Chart Reviewed Final Anesthetic Review Family History of Problems with Anesthesia: No History of Problems with Anesthesia: No Documented by User: Suma Gongora MD 03/01/24 13:27 [facility] Past Medical History Medical History TIA (transient ischemic attack) Back pain Elevated cholesterol HTN (hypertension) Cataract Hypoparathyroidism Vitamin D deficiency Osteoporosis Hyperparathyroidism Family History Family History Father Diabetes Hypertension Mother Diabetes Hypertension Family/Other Colon cancer Surgical History Surgical History Hx of cataract surgery History of hysteroscopy H/O colonoscopy History of back surgery History of parathyroid surgery Hx of neck surgery Hx of removal of neck cyst Hx of section Social History Social History Household Members Other:: uncle Housing: Apartment Are you a primary medicare sales representative to a significant other at home: No Do you presently have visiting nurse or other home services: No Alcohol intake: current Alcohol intake frequency: does not drink Patient Tobacco Use Status: Never used Tobacco e-Cigarette/Vaping Use: Never Used Use of substances other than those prescribed or required for medical reasons: No Advance Directives: No Advance Directives Information Provided: Yes Advance Directives on File: No service: No Current occupational status: employed Cognitive needs: No Hearing needs: No Vision needs: Yes Meds Allergies Allergy/AdvReac Type Severity Reaction Status Date / Time No Known Allergies Allergy Verified 02/17/24 11:38 Home Medications ?Medication ?Instructions ?Recorded ?Confirmed ?Last Taken ?Type calcium 325 mg-vit D3 12.5 1 tab PO BID 04/18/21 02/24/24 Unknown History mcg-zinc 2.75 qh-reuvjb-xuoegcxoy tablet (Citracal-D3 Maximum Plus) Exam Airway Mallampati Class: III TM Dist: >3cm Neck ROM: Full Loose/Missing/Broken Teeth: No Heart: RRR Lungs: CTA Assessment and Plan Assessment Anesthesia Assessment: Anesthesia Plan Discussed Final Anesthetic Review NPO: Yes ASA Class: III Final Preanesthetic Review: Meds/Allgs Chart Reviewed, Consent Obtained/Reviewed and Anes Risks/Benef Reviewed Patient Risk: Intermediate Procedure Risk: Low Anesthetic Plan Anesthetic Plan: MAC: Disposition: Standard PACU
[2024-03-01] MEDS: Lactated Ringers 500 ML 50 ML IV (13:10)
[2024-03-01 13:20] VITALS: BP 141/85; PULSE 70; RESP 18; TEMP 36.8; O2SAT 98
[2024-03-01 14:19] VITALS: BMI 22.8
--- NOTE | 2024-03-01 15:01 | MHC.SHP ---
Pre-Procedural Eval Section A - 24 Hr Update-Section A only Date of Service: 03/01/24 The patient is an INPATIENT: No Changes since office visit: No Cold of Flu in the past 2 weeks, No New Medical Problems, No Changes in Medication and No Patient answered all questions The patient has been examined within 24 hours of the surgical procedure. The History & Physical has been completed within 30 days and I have reviewed it.: Yes Section B - Complete if H&P > 30 days Chief Complaint: Dermatochalasis of right upper eyelid Allergies: Allergies Allergy/AdvReac Type Severity Reaction Status Date / Time No Known Allergies Allergy Verified 03/01/24 14:55 Plan Diagnosis/Plan: Unchanged I have reviewed the history and physical and performed a pertinent physical examination on my patient. No changes have occurred unless specified. Time Spent With Patient Time: Total time managing care of this patient today ____ minutes.
--- NOTE | 2024-03-01 15:02 | HO.PNOPHT ---
Ophthalmology Procedure Procedure Date of Service: 03/01/24 Ophthalmology Viscoelastic: Not Applicable Ophthalmology Lenses: Not Applicable Procedure Notes: PREOPERATIVE DIAGNOSIS: Decreased visual field secondary to dermatochalasia POSTOPERATIVE DIAGNOSIS: Same PROCEDURE: Bilateral Blepharoplasty, upper eyelids SURGEON: Saurav Chaney M.D. ANESTHESIA: Local with sedation ESTIMATED BLOOD LOSS: None COMPLICATIONS: None After obtaining informed consent, the patient was brought to the operating room and placed in supine position. After adequate sedation per Anesthesia, the eyes were prepped and draped in the usual sterile fashion. Attention was directed to the right eye where a double pinch test was completed to assure excess tissue was not removed from the upper lid. The margin was marked at the proposed incision sites. The left eye was done in a similar fashion. 2% Lidocaine with epinephrine was then instilled subcutaneously along the margin of the pre-marked skin incisions. #15 scalpel blade was then utilized to create the incisions. Using a combination of sharp and blunt dissection with Pato scissors, the epidermis was removed. Hemostasis was achieved with cautery. 6-0 plain suture was then utilized to close the incision site. Attention was directed to the left upper lid where subcutaneous 2% with Epinephrine Lidocaine was instilled along the pre-marked areas. A #15 scalpel blade was then utilized to create the incisions followed by sharp and blunt dissection with Pato scissors to remove the overlying epidermis. Hemostasis was achieved with cautery, followed by closure with 6-0 plain suture. The patient tolerated the procedure well. The patient will be followed up in the a.m. Topical antibiotic ointment was instilled over the incision sites and ice as tolerated for 48 hours.
--- NOTE | 2024-03-01 15:40 | HO.ANESPROP2 ---
FORMERLY [facility], [facility] Active Problems Active Problems: All Active Problems Blurred vision, right eye (Acute) Lip injury (Acute) Chronic lower back pain (Acute) Lack of energy (Acute) Tired (Acute) Encounter for wound care (Acute) Skin abrasion (Acute) Left knee injury (Acute) Fall (Acute) Lumbar pain (Acute) Pre-op evaluation (Acute) Exposure to viral hepatitis (Acute) Pre-diabetes (Acute) Encounter for annual routine gynecological examination (Acute) Allergic conjunctivitis (Acute) Tinea pedis (Acute) TIA (transient ischemic attack) (Acute) Routine gynecological examination (Acute) Encounter for general adult medical examination with abnormal findings (Acute) Osteoporosis (Acute) Arthrosis (Acute) Hypertension, essential (Acute) Environmental allergies (Acute) Lipid disorder (Acute) Cataract (Acute) Hypoparathyroidism (Acute) Osteoporosis (Acute) Hyperparathyroidism (Acute) Past Medical History Medical History TIA (transient ischemic attack) Back pain Elevated cholesterol HTN (hypertension) Cataract Hypoparathyroidism Vitamin D deficiency Osteoporosis Hyperparathyroidism Functional capacity: independent ambulation Patient : No Family History Family History Father Diabetes Hypertension Mother Diabetes Hypertension Family/Other Colon cancer Family history of problems with anesthesia: No Surgical History Surgical History Hx of cataract surgery History of hysteroscopy H/O colonoscopy History of back surgery History of parathyroid surgery Hx of neck surgery Hx of removal of neck cyst Hx of section History of Problems with Anesthesia: No Social History Social History Household Members Other:: uncle Housing: Apartment Are you a primary director of health care marketing to a significant other at home: No Do you presently have visiting nurse or other home services: No Alcohol intake: current Alcohol intake frequency: does not drink Patient Tobacco Use Status: Never used Tobacco e-Cigarette/Vaping Use: Never Used Use of substances other than those prescribed or required for medical reasons: No Advance Directives: No Advance Directives Information Provided: Yes Advance Directives on File: No service: No Current occupational status: employed Cognitive needs: No Hearing needs: No Vision needs: Yes Meds Allergies Allergy/AdvReac Type Severity Reaction Status Date / Time No Known Allergies Allergy Verified 03/01/24 14:55 Active Medications: Current Medications Lactated Ringer's (Lr) 500 mls @ 50 mls/hr IV .Q10H JACK Stop: 03/01/24 22:59 Last Admin: 03/01/24 13:10 Dose: 50 mls/hr Povidone Iodine (Povidone Iodine 5 % Ophth Soln 30 Ml Bottle) 1 appl EYE-BOTH PREOP PRN PRN Reason: Pre-Op Surgical Implant Prophy Home Medications ?Medication ?Instructions ?Recorded ?Confirmed ?Last Taken ?Type calcium 325 mg-vit D3 12.5 1 tab PO BID 04/18/21 02/24/24 Unknown History mcg-zinc 2.75 ci-enlets-yxsewhiaq tablet (Citracal-D3 Maximum Plus) Exam Height,Weight and Vital Signs: Height 5 ft 5 in Weight 62.142 kg Last Vital Signs Temp 98.3 F 03/01/24 13:20 Pulse 70 03/01/24 13:20 Resp 18 03/01/24 13:20 BP 141/85 H 03/01/24 13:20 Pulse Ox 98 03/01/24 13:20 O2 Del Method Room Air 03/01/24 13:20 Airway Mallampati Class: II TM Dist: >3cm Neck ROM: Full Heart: RRR Lungs: CTA Assessment and Plan Final Anesthetic Review Family History of Problems with Anesthesia: No History of Problems with Anesthesia: No NPO: Yes ASA Class: II Final Preanesthetic Review: Meds/Allgs Chart Reviewed, Consent Obtained/Reviewed and Anes Risks/Benef Reviewed Patient Risk: Low Procedure Risk: Low Anesthetic Plan Anesthetic Plan: MAC: Disposition: Standard PACU
[2024-03-01 16:15] VITALS: BP 139/76; PULSE 71; RESP 16; TEMP 36.7; O2SAT 97
--- NOTE | 2024-03-01 16:25 | HO.POSTANES ---
Post Anesthesia Evaluation Post Anesthesia Evaluation Date of Service: 03/01/24 Vital Signs: Vital Signs Temp Pulse Resp BP Pulse Ox O2 Del Method 03/01/24 16:15 98.0 F 71 16 139/76 97 Room Air 03/01/24 13:20 98.3 F 70 18 141/85 H 98 Room Air Anesthesia: Monitored Mental Status: Awake Pain Control: Satisfactory Nausea/Vomiting: None Hydration: Adequate Anesthesia-Related Issues: No Anes. Related Issues
[2024-03-01 16:30] VITALS: BP 132/79; PULSE 63; RESP 16; O2SAT 99
[2024-03-01 16:45] VITALS: BP 131/77; PULSE 68; RESP 18; TEMP 36.5; O2SAT 100
== END 2024-03-01 17:05 | disposition home or self-care (01) ==
PROVIDERS: PCP Internal Medicine; Visit Provider Ophthalmology
PROC: (CPT 15823; principal; 2024-03-01 13:00)
DX: H02.831 Dermatochalasis of right upper eyelid (principal); H02.834 Dermatochalasis of left upper eyelid; H04.123 Dry eye syndrome of bilateral lacrimal glands; Z96.1 Presence of intraocular lens; I10 Essential (primary) hypertension; E78.00 Pure hypercholesterolemia, unspecified; E55.9 Vitamin D deficiency, unspecified; E21.3 Hyperparathyroidism, unspecified; M81.0 Age-related osteoporosis without current pathological fracture; Z86.73 Personal history of transient ischemic attack (TIA), and cerebral infarction without residual deficits; Z79.899 Other long term (current) drug therapy
CPT/HCPCS: 15823; J2250; J3010; J3301

== ENCOUNTER 2024-03-03 09:16 | Outpatient (AMB) | payer MEDICARE, SELFPAY ==
--- NOTE | 2024-03-03 09:38 | AM.OFFVISNUR ---
Intake Intake Visit Reasons: Prolia Injection Allergies No Known Allergies Allergy (Verified 03/01/24 14:55) Office Meds Prolia 60 mg/mL subcutaneous syringe Performing Provider: Doc Ayala MD [place] [facility] [place] Administered by: Svitlana Alejandre RN on 03/03/24 09:41 Dose Route Admin Location Dispensed Lot Number Expiration Date NDC Capsule Filler 60 mg subcut Right upper Arm 1 mL [id number] 03/03/24 01259-556-09 [facility] Comments: Consent form signed, pt tolerated well and observed for 15 minutes Coding Assessment & Plan Assessment & Plan Orders: Orders AMB Denosumab Injection Patient Supplied Today M81.0 - Age-related osteoporosis without current pathological fracture Medications: New Prolia (denosumab) 60 mg subcut ONCE 1 mL 0RF NS M81.0 - Age-related osteoporosis without current pathological fracture
== END 2024-03-03 09:43 | disposition home or self-care (01) ==
PROVIDERS: PCP Internal Medicine
DX: M81.0 Age-related osteoporosis without current pathological fracture (principal)

== ENCOUNTER → 2024-03-03 09:16 | Outpatient (BNVA) | payer MEDICARE, SELFPAY | PROVIDERS: PCP Internal Medicine | DX: M81.0 Age-related osteoporosis without current pathological fracture (principal) | CPT/HCPCS: 96372; J0897 ==

== ENCOUNTER 2024-05-07 09:31 | Outpatient (AMB) | payer MEDICARE, SELFPAY ==
--- NOTE | 2024-05-07 09:38 | MHC.PC.OV ---
Vital Signs 05/07/24 09:39 Height 5 ft 5 in Weight 146 lb BMI 24.3 BP 128/80 Blood Pressure Location Lt brachial Position Sitting Pulse 55 Pulse Source Pulse Oximeter Pulse Oximetry (%) 98 Oxygen Delivery Method Room Air Intake Visit Reasons: 3M F/U Allergies No Known Allergies Allergy (Verified 05/07/24 09:39) Medication List - Last Reconciled 05/07/24 by Moustapha Mariee MD acetaminophen (Tylenol) 650 mg (2 x 325 mg) PO TID PRN 90 days aspirin 81 mg PO DAILY 90 days atorvastatin 20 mg PO DAILY [id number] 325 mg-12.5 mcg -2.75 mg (Citracal-D3 Maximum Plus) 1 tab PO BID cetirizine 10 mg PO DAILY 90 days clotrimazole-betamethasone 1-0.05 % 1 appl topical DAILY denosumab (Prolia) 60 mg subcut [id number] famotidine 20 mg PO BEDTIME 90 days irbesartan 75 mg PO DAILY 90 days Tobacco use date assessed: 02/17/24 Dental Screening Dental Screen Date: 02/17/24 HPI 3M F/U HPI Details Patient is 72-year-old female came in today for her regular follow-up appointment Patient suffers from chronic back pain I have sent cyclobenzaprine 5 mg to be taken at night as needed Hyperparathyroidism management through endocrinology Bone density shows score of -3.1, Hypertension:? Patient is on irbesartan 75 mg, blood pressure is stable patient is tolerating medication. Lipid disorder:? Lipids are controlled with atorvastatin 20 mg and diet controlled no side effects. Allergies are stable with medications Arthrosis:? Patient also take Tylenol off and on, Labs before next visit [facility] Medical History TIA (transient ischemic attack) Back pain Elevated cholesterol HTN (hypertension) Cataract Hypoparathyroidism Vitamin D deficiency Osteoporosis Hyperparathyroidism Surgical History Hx of cataract surgery History of hysteroscopy H/O colonoscopy History of back surgery History of parathyroid surgery Hx of neck surgery Hx of removal of neck cyst Hx of section Family History Father Diabetes Hypertension Mother Diabetes Hypertension Family/Other Colon cancer Social History Household Members Other:: uncle Housing: Apartment Are you a primary director long term care to a significant other at home: No Do you presently have visiting nurse or other home services: No Alcohol intake: current Alcohol intake frequency: does not drink Patient Tobacco Use Status: Never used Tobacco e-Cigarette/Vaping Use: Never Used service: No Current occupational status: employed Cognitive needs: No Hearing needs: No Vision needs: Yes Questionnaire Thrive Questionnaire Date Thrive assessed: 02/17/24 PARI-7 AMB Questionnaire PARI-7 Date PARI - 7 assessed: 02/17/24 Source: Developed by Drs. Doc Douglas, Di Villanueva, Marvin Thorne and colleagues, with an educational alfa from [employer]. Review of Systems Const Denies chills and Denies fever(s) ENT Denies epistaxis and Denies nasal discharge Card Denies chest pain Resp Denies chest congestion, Denies cough and Denies hemoptysis GI Denies diarrhea and Denies nausea Skin/Breast Denies rash Neuro Reports no additional complaints Psych Reports no additional complaints Endo Reports no additional complaints Physical exam (Primary Care) Vital Signs: Last Vital Signs Pulse 55 05/07/24 09:39 BP 128/80 05/07/24 09:39 Pulse Ox 98 05/07/24 09:39 Oxygen Delivery Method Room Air 05/07/24 09:39 BMI result Body Mass Index 24.3 Tobacco/Smoking Status: Tobacco use Status Tobacco use date assessed 02/17/24 05/07/24 09:41 Patient Tobacco Use Status Never used Tobacco 05/07/24 09:41 e-Cigarette/Vaping Use Never Used 05/07/24 09:41 Thrive Assessment: Date of Thrive Assessment Date Thrive assessed 02/17/24 05/07/24 09:41 Const General: cooperative, comfortable and no acute distress Orientation/consciousness: patient oriented x3 HENMT Head: Yes normocephalic Eyes General: appearance normal, both eyes and all related structures Neck Neck: Yes supple Resp Effort & Inspection: normal respiratory effort, no cough and no stridor Cardio Rhythm: regular rhythm Heart sounds: S1 normal heart sound present and S2 normal heart sound present Skin General skin exam: turgor normal Neuro General: patient oriented x3, tone normal and moves all extremities Extrem Right lower extremity: no edema Left lower extremity: no edema Assessment and Plan Assessment & Plan (1) Hypertension, essential: Code(s): I10 - Essential (primary) hypertension (2) Chronic lower back pain: Code(s): M54.50 - Low back pain, unspecified; G89.29 - Other chronic pain Qualifiers: Back pain laterality: midline Sciatica presence: without sciatica Qualified Code(s): M54.50 - Low back pain, unspecified; G89.29 - Other chronic pain (3) Lipid disorder: Code(s): E78.9 - Disorder of lipoprotein metabolism, unspecified (4) Environmental allergies: Code(s): Z91.09 - Other allergy status, other than to drugs and biological substances (5) Pre-diabetes: Code(s): R73.03 - Prediabetes (6) Osteoporosis: Code(s): M81.0 - Age-related osteoporosis without current pathological fracture Qualifiers: Osteoporosis type: age-related Presence of current pathological fracture: without current pathological fracture Qualified Code(s): M81.0 - Age-related osteoporosis without current pathological fracture (7) Arthrosis: Code(s): M19.90 - Unspecified osteoarthritis, unspecified site (8) Hyperparathyroidism: Code(s): E21.3 - Hyperparathyroidism, unspecified (9) Vitamin D deficiency: Code(s): E55.9 - Vitamin D deficiency, unspecified Plan Patient is 72-year-old female came in today for her regular follow-up appointment Patient suffers from chronic back pain I have sent cyclobenzaprine 5 mg to be taken at night as needed Hyperparathyroidism management through endocrinology Bone density shows score of -3.1, Hypertension:? Patient is on irbesartan 75 mg, blood pressure is stable patient is tolerating medication. Lipid disorder:? Lipids are controlled with atorvastatin 20 mg and diet controlled no side effects. Allergies are stable with medications Arthrosis:? Patient also take Tylenol off and on, Labs before next visit Orders: Orders Complete Blood Count Auto Diff Today E21.3 - Hyperparathyroidism, unspecified, E55.9 - Vitamin D deficiency, unspecified, E78.9 - Disorder of lipoprotein metabolism, unspecified, G89.29 - Other chronic pain, I10 - Essential (primary) hypertension, M19.90 - Unspecified osteoarthritis, unspecified site, M54.50 - Low back pain, unspecified, M81.0 - Age-related osteoporosis without current pathological fracture, R73.03 - Prediabetes, Z91.09 - Other allergy status, other than to drugs and biological substances Comprehensive [place]. Panel Fast Today E21.3 - Hyperparathyroidism, unspecified, E55.9 - Vitamin D deficiency, unspecified, E78.9 - Disorder of lipoprotein metabolism, unspecified, G89.29 - Other chronic pain, I10 - Essential (primary) hypertension, M19.90 - Unspecified osteoarthritis, unspecified site, M54.50 - Low back pain, unspecified, M81.0 - Age-related osteoporosis without current pathological fracture, R73.03 - Prediabetes, Z91.09 - Other allergy status, other than to drugs and biological substances Lipid Panel Today E21.3 - Hyperparathyroidism, unspecified, E55.9 - Vitamin D deficiency, unspecified, E78.9 - Disorder of lipoprotein metabolism, unspecified, G89.29 - Other chronic pain, I10 - Essential (primary) hypertension, M19.90 - Unspecified osteoarthritis, unspecified site, M54.50 - Low back pain, unspecified, M81.0 - Age-related osteoporosis without current pathological fracture, R73.03 - Prediabetes, Z91.09 - Other allergy status, other than to drugs and biological substances Hemoglobin A1c Today R73.03 - Prediabetes Medications: New cyclobenzaprine 5 mg PO BEDTIME 30 tabs 0RF 30 days M54.9 - Dorsalgia, unspecified Refilled acetaminophen (Tylenol) 650 mg (2 x 325 mg) PO TID PRN 180 tabs 3RF pain 90 days M19.90 - Unspecified osteoarthritis, unspecified site Coding Level of Care Code Tele Est Pt Level 4 (53110) Complex EM visit Add On G2211 Diagnoses Hypertension, essential I10 Chronic midline low back pain without sciatica M54.50; G89.29 Back pain laterality: midline Sciatica presence: without sciatica Lipid disorder E78.9 Environmental allergies Z91.09 Pre-diabetes R73.03 Age-related osteoporosis without current pathological fracture M81.0 Osteoporosis type: age-related Presence of current pathological fracture: without current pathological fracture Arthrosis M19.90 Hyperparathyroidism E21.3 Vitamin D deficiency E55.9
[2024-05-07 09:39] VITALS: BP 128/80; PULSE 55; O2SAT 98; BMI 24.3
== END 2024-05-07 10:06 | disposition home or self-care (01) ==
PROVIDERS: PCP Internal Medicine; Visit Provider Internal Medicine
DX: I10 Essential (primary) hypertension (principal); E21.3 Hyperparathyroidism, unspecified; M54.50 Low back pain, unspecified; G89.29 Other chronic pain; E78.9 Disorder of lipoprotein metabolism, unspecified; Z91.09 Other allergy status, other than to drugs and biological substances; R73.03 Prediabetes; M81.0 Age-related osteoporosis without current pathological fracture; M19.90 Unspecified osteoarthritis, unspecified site; E55.9 Vitamin D deficiency, unspecified
CPT/HCPCS: 99214; G2211

== ENCOUNTER → 2024-07-15 07:50 | Outpatient (BNVA) | payer MEDICARE, SELFPAY | PROVIDERS: PCP Internal Medicine; Visit Provider Advanced Practice Midwife | DX: Z01.419 Encounter for gynecological examination (general) (routine) without abnormal findings (principal); R30.9 Painful micturition, unspecified | CPT/HCPCS: 81003 ==

== ENCOUNTER 2024-07-15 07:57 | Outpatient (AMB) | payer MEDICARE, SELFPAY ==
--- NOTE | 2024-07-15 07:59 | MHC.OFFVIS ---
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 She is doing well with no concerns. Attempting to eat a healthy diet with calcium and vitamin D and stays active with exercise. Not sexually active. She reports some bladder irritation with urination over the last few weeks has not been seen for these symptoms, currently have resolved. Last pap smear; 2020. Last mammogram; 2022. Colonoscopy is UTD. Denies any family history of breast or ovarian. FH colon cancer. [facility] Medical History TIA (transient ischemic attack) Back pain Elevated cholesterol HTN (hypertension) Cataract Hypoparathyroidism Vitamin D deficiency Osteoporosis Hyperparathyroidism Surgical History Hx of cataract surgery History of hysteroscopy H/O colonoscopy History of back surgery History of parathyroid surgery Hx of neck surgery Hx of removal of neck cyst Hx of section Family History Father Diabetes Hypertension Mother Diabetes Hypertension Family/Other Colon cancer Social History Household Members Other:: uncle Housing: Apartment Are you a primary child care attendant to a significant other at home: No Do you presently have visiting nurse or other home services: No Alcohol intake: current Alcohol intake frequency: does not drink Patient Tobacco Use Status: Never used Tobacco e-Cigarette/Vaping Use: Never Used service: No Current occupational status: employed Cognitive needs: No Hearing needs: No Vision needs: Yes Female Reproductive History Menstrual Total pregnancies: 5 Full term: 3 Number of Living Children: 3 Date of last pap smear: 03/12/21 (neg pap and hpv) Date of Mammogram: 10/03/23 (Birad 1) Date of last Bone Density Screenin10/03/23 Review of Systems Const All systems reviewed & are unremarkable except as noted in HPI and below Reports as per HPI Eyes Reports no additional complaints ENT Reports no additional complaints Card Reports no additional complaints Resp Reports no additional complaints GI Reports as per HPI and Reports no additional complaints Reports as per HPI Musc Reports no additional complaints Skin/Breast Reports as per HPI Neuro Reports no additional complaints Psych Reports no additional complaints Endo Reports no additional complaints Aakash/Lymph Reports no additional complaints Aller/Immun Reports no additional complaints Physical Exam Vital Signs: Last Vital Signs BP 108/66 07/15/24 08:00 BMI result Body Mass Index 24.3 Const General: cooperative, healthy appearing, no acute distress, well developed and alert Orientation/consciousness: patient oriented x3 HEENT Head: Yes normal to inspection Eyes General: appearance normal, both eyes and all related structures Neck Neck: Yes normal visual inspection Thyroid: Thyroid normal Chest Chest palpation & inspection: normal inspection of the chest and other (no puckering, dimpling, peau de orange, retraction, discharge, masses) Breast/axilla inspection: normal inspection of the breasts Breast/axilla palpation: normal palpation of the breasts Resp Effort & Inspection: normal respiratory effort GI Inspection: Yes normal to inspection Palpation (GI): Soft to palpation Rectal Exam - Female: deferred General: Yes bladder normal to palpation External Female Exam: normal external appearance and normal appearance of the urethra Speculum Exam - Vagina: normal appearance of the vagina, normal palpation, normal vaginal discharge and vagina atrophic Speculum Exam - Cervix: normal appearance of the cervix and normal palpation Bimanual exam- vagina & uterus: normal bimanual exam, normal palpation, uterine size normal, bladder normal to palpation, normal palpation and non-tender Bimanual Exam- Adnexa, other: no masses Skin General skin exam: no rashes or lesions noted Rashes: no rashes Neuro General: patient oriented x3 Cognition (Neuro): normal cognition Extrem General: Yes normal to inspection Psych Attitude: cooperative Thought process: Normal thought process present Results AMB Urinalysis, Automated UA Leukoctes 0 Nathaniel/uL Last Edit by YADIRA Edouard on 07/15/24 08:35 UA Nitrite Negative Last Edit by YADIRA Edouard on 07/15/24 08:35 UA Urobilinogen 0 mg/dL Last Edit by YADIRA Edouard on 07/15/24 08:35 UA Protein 0 mg/dL Last Edit by YADIRA Edouard on 07/15/24 08:35 UA pH 7.5 Last Edit by Ada Simon YADIRA on 07/15/24 08:35 UA Blood 0 Nikita/uL Last Edit by Ada Simon YADIRA on 07/15/24 08:35 UA Specific Candor 1.010 Last Edit by Ada Simon YADIRA on 07/15/24 08:35 UA Ketone Negative Last Edit by Ada Simon YADIRA on 07/15/24 08:35 UA Bilirubin 0 mg/dL Last Edit by Ada Simon MANOLOA on 07/15/24 08:35 UA Glucose 0 mg/dL Last Edit by Ada Simon YADIRA on 07/15/24 08:35 Assessment & Plan Assessment & Plan (1) Encounter for well woman exam with routine gynecological exam: Code(s): Z01.419 - Encounter for gynecological examination (general) (routine) without abnormal findings Category: Medical (2) Painful urination: Code(s): R30.9 - Painful micturition, unspecified Plan Discussed: Current recommendations for pap smears per ASCCP guidelines. Breast awareness, periodic self breast exams and yearly mammogram. Maintain a healthy lifestyle, well balanced diet including Calcium 1,200 mg and Vitamin D 800 IU daily, and routine exercise. Contact the office with any postmenopausal bleeding. Urine dip negative today. Patient verbalizes understanding and agrees to the plan of care. She was given opportunity to ask questions and all questions were answered to the best of my ability. Return to the office 1 year. This note is constructed using voice recognition software. While every effort has been made to ensure accuracy, audiometrist errors may have been included. RTO in 1 year for annual medical insurance coding specialist exam. Orders: Orders MM tomosynthesis screening BI Today Z12.31 - Encounter for screening mammogram for malignant neoplasm of breast AMB Urinalysis Automated Today R30.9 - Painful micturition, unspecified Coding Level of Care Code Est Pt Prev Care >65y(28422) Diagnoses Encounter for well woman exam with routine gynecological exam Z01.419 Painful urination R30.9
[2024-07-15 08:00] VITALS: BP 108/66; BMI 24.3
== END 2024-07-15 08:36 | disposition home or self-care (01) ==
PROVIDERS: PCP Internal Medicine; Visit Provider Advanced Practice Midwife
DX: Z01.419 Encounter for gynecological examination (general) (routine) without abnormal findings (principal); R30.9 Painful micturition, unspecified
CPT/HCPCS: 99397

== ENCOUNTER 2024-09-03 08:48 | Outpatient (REF) | payer MEDICARE, SELFPAY ==
[2024-09-03 11:50] LABS: Albumin Level 4.2 g/dL (3.5-5.0); Anion Gap 13 (12-20); Blood Urea Nitrogen 15 mg/dL (9-16); Calcium 8.8 mg/dL (8.4-10.2); Carbon Dioxide 28 mmol/L (22-29); Chloride 103 mmol/L (96-108); Estimated Glomerular Filt Rate > 60; Glucose Random 109 mg/dL (60-115); Potassium 4.4 mmol/L (3.3-5.1); Sodium 140 mmol/L (135-145)
== END 2024-09-03 08:49 | disposition home or self-care (01) ==
LOC: HO.LAB 08:48
PROVIDERS: Absent Provider Internal Medicine Endocrinology, Diabetes & Metabolism; PCP Internal Medicine; Visit Provider Internal Medicine
DX: M81.0 Age-related osteoporosis without current pathological fracture (principal)
CPT/HCPCS: 36415; 80048; 82040

== ENCOUNTER 2024-09-13 13:36 | Outpatient (AMB) | payer MEDICARE, SELFPAY ==
--- NOTE | 2024-09-13 14:20 | AM.OFFVISNUR ---
Intake Visit Reasons: Prolia injection Allergies No Known Allergies Allergy (Verified 07/15/24 08:00) Office Meds Prolia 60 mg/mL subcutaneous syringe Performing Provider: Doc Ayala MD Performing Location: [facility] [place] Administered by: Svitlana Alejandre RN on 09/13/24 14:20 Dose Route Admin Location Dispensed Lot Number Expiration Date NDC Sales Compensation Analyst 60 mg subcut right upper arm 1 mL [id number] 12/31/26 24077-341-76 [facility] Comments: Consent form signed by patient. Pt tolerated injection well. Pt denies any problems with previous injections. Assessment & Plan Assessment & Plan Orders: Orders AMB Denosumab Injection Patient Supplied Today M81.0 - Age-related osteoporosis without current pathological fracture Medications: New Prolia (denosumab) 60 mg subcut ONCE 1 mL 0RF NS M81.0 - Age-related osteoporosis without current pathological fracture
== END 2024-09-13 14:23 | disposition home or self-care (01) ==
PROVIDERS: PCP Internal Medicine
DX: M81.0 Age-related osteoporosis without current pathological fracture (principal)

== ENCOUNTER → 2024-09-13 13:36 | Outpatient (BNVA) | payer MEDICARE, SELFPAY | PROVIDERS: PCP Internal Medicine | DX: M81.0 Age-related osteoporosis without current pathological fracture (principal) | CPT/HCPCS: 96372; J0897 ==

== ENCOUNTER 2024-09-24 08:06 | Outpatient (AMB) | payer MEDICARE, SELFPAY ==
[2024-09-24 08:09] VITALS: BP 112/70; PULSE 87; O2SAT 96; BMI 22.9
--- NOTE | 2024-09-24 08:09 | A.OFFPC_ITS ---
Vital Signs 09/24/24 08:09 Height 5 ft 5 in Weight 137 lb 8 oz BMI 22.9 BP 112/70 Blood Pressure Location Rt brachial Position Sitting Pulse 87 Pulse Source Pulse Oximeter Pulse Oximetry (%) 96 Oxygen Delivery Method Room Air Intake Visit Reasons: PE Allergies No Known Allergies Allergy (Verified 09/24/24 08:10) Medication List - Last Reconciled 09/24/24 by Moustapha Mariee MD acetaminophen (Tylenol) 650 mg (2 x 325 mg) PO TID PRN 90 days aspirin 81 mg PO DAILY 90 days atorvastatin 20 mg PO DAILY [id number] 325 mg-12.5 mcg -2.75 mg (Citracal-D3 Maximum Plus) 1 tab PO BID cetirizine 10 mg PO DAILY 90 days clotrimazole-betamethasone 1-0.05 % 1 appl topical DAILY denosumab (Prolia) 60 mg subcut [id number] famotidine 20 mg PO BEDTIME 90 days irbesartan 75 mg PO DAILY 90 days Tobacco use date assessed: 09/24/24 Fall risk assessment: No Falls in past year Last assessed Fall Risk: 09/24/24 Dental Screening Dental Screen Date: 09/24/24 Did you have a dental visit in the last 12 months?: Yes Did you have a dental problem in the last 6 months where you did not have access to dental care?: No Was dental information given to patient?: Patient has dentist HPI PE HPI Details Patient is 73-year-old female came in today her physical exam Patient suffers from chronic back pain I have sent cyclobenzaprine 5 mg to be taken at night as needed patient suffers from chronic back pain radiating to right leg causing paresthesia She just returned from [place] where she was cooking for several people, symptoms has flared up. However manageable She does not want to take muscle relaxer anymore, as it makes her very drowsy. Hyperparathyroidism management through endocrinology Bone density shows score of -3.1, patient is on Prolia injection Hypertension:? Patient is on irbesartan 75 mg, blood pressure is stable patient is tolerating medication. Lipid disorder:? Lipids are controlled with atorvastatin 20 mg and diet controlled no side effects. Allergies are stable with medications Arthrosis:? Patient also take Tylenol off and on, Last set of lab reviewed and Labs done this month reviewed as well with the patient Mammogram appointment is coming up She is no longer having colonoscopies She is no longer seeing OBGYN Follow-up 4 months [facility] Medical History TIA (transient ischemic attack) Back pain Elevated cholesterol HTN (hypertension) Cataract Hypoparathyroidism Vitamin D deficiency Osteoporosis Hyperparathyroidism Surgical History Hx of cataract surgery History of hysteroscopy H/O colonoscopy History of back surgery History of parathyroid surgery Hx of neck surgery Hx of removal of neck cyst Hx of section Family History Father Diabetes Hypertension Mother Diabetes Hypertension Family/Other Colon cancer Social History Household Members Other:: uncle Housing: Apartment Are you a primary career development coordinator/teacher to a significant other at home: No Do you presently have visiting nurse or other home services: No Alcohol intake: current Alcohol intake frequency: does not drink Patient Tobacco Use Status: Never used Tobacco e-Cigarette/Vaping Use: Never Used service: No Current occupational status: employed Cognitive needs: No Hearing needs: No Vision needs: Yes Questionnaire PHQ-9 Over the last 2 weeks, how often have you been bothered by any of the following problems? 1. Little interest or pleasure in doing things: not at all 2. Feeling down, depressed, or hopeless: not at all 3. Trouble falling or staying asleep, or sleeping too much: not at all 4. Feeling tired or having little energy: not at all 5. Poor appetite or overeating: not at all 6. Feeling bad about yourself - or that you are a failure or have let yourself or your family down: not at all 7. Trouble concentrating on things, such as reading the newspaper or watching television: not at all 8. Moving or speaking so slowly that other people could have noticed. Or the opposite - being so fidgety or restless that you have been moving around a lot more than usual: not at all 9. Thoughts that you would be better off or of hurting yourself in some way: not at all Total score: 0 Depression Screening Interpretation: Negative Depression Screening Done: Yes 73940 - PHQ-9 Billing: Yes Source: Developed by Drs. Doc Douglas, Di Villanueva, Marvin Thorne and colleagues, with an educational alfa from [employer]. Thrive Questionnaire Date Thrive assessed: 09/24/24 I am a: Patient What is your living situation today?: I have a steady place to live Within the past 12 months, did the food you bought not last and you didn't have the money to get more?: Often true Within the past 12 months, did you worry whether your food would run out before you got money to buy more?: Sometimes True Do you have trouble paying for medicines?: No Do you have trouble getting transportation to medical appointments?: No Do you have trouble paying your heating and electricity bill?: No Do you have trouble taking care of your child, family member or friend?: No Do you have trouble with day-to-day activities such as bathing, preparing meals, shopping, managing finances, etc.?: No Are you currently unemployed and looking for a job?: No Are you interested in more education?: No Please select the resources that you would like help with: Housing/Detention Currently or been in a relationship where the following occur: No concerns reported THRIVE Score: 2 AUDIT C Alcohol Use Questionnaire (AUDIT-C) 1. How often do you have a drink containing alcohol?: Never 3. How often do you have six or more drinks on one occasion?: Never Total Score: 0 Score Reviewed/Action Taken: Yes PARI-7 AMB Questionnaire PARI-7 Date PARI - 7 assessed: 02/17/24 Source: Developed by Drs. Doc Douglas, Marvin Calhoun and colleagues, with an educational alfa from [employer]. Review of Systems Const Denies chills, Denies fever(s) and Denies headache(s) Eyes Denies blurry vision ENT Denies headache(s), Denies nasal discharge, Denies nasal obstruction, Denies odynophagia and Denies sinus pain Card Denies chest pain at rest and Denies chest pain with activity Resp Denies cough and Denies hemoptysis GI Denies diarrhea, Denies odynophagia, Denies vomiting and Denies hematemesis Reports as per HPI Musc Denies abnormal gait Skin/Breast Reports as per HPI Neuro Denies Neuro-related abnormal movements, Denies Abnormal speech present, Denies abnormal gait and Denies headache(s) Psych Denies mood swings and Denies paranoia Endo Reports as per HPI Aakash/Lymph Reports as per HPI Aller/Immun Reports as per HPI Physical exam (Primary Care) Vital Signs: Last Vital Signs Pulse 87 09/24/24 08:09 BP 112/70 09/24/24 08:09 Pulse Ox 96 09/24/24 08:09 Oxygen Delivery Method Room Air 09/24/24 08:09 BMI result Body Mass Index 22.9 Tobacco/Smoking Status: Tobacco use Status Tobacco use date assessed 09/24/24 09/24/24 08:12 Patient Tobacco Use Status Never used Tobacco 09/24/24 08:12 e-Cigarette/Vaping Use Never Used 09/24/24 08:12 PHQ-9: PHQ-9 Score PHQ-9: Total score 0 09/24/24 08:28 Depression Screening Interpretation: Negative Thrive Assessment: Date of Thrive Assessment Date Thrive assessed 09/24/24 09/24/24 08:12 Currently or been in a relationship where the following occur: No concerns reported Const General: cooperative, comfortable and no acute distress Orientation/consciousness: patient oriented x3 HENMT Head: Yes normocephalic and Yes atraumatic Eyes General: appearance normal, both eyes and all related structures Pupils: Equal, round and reactive pupils present EOM: EOMs intact bilaterally Neck Neck: Yes supple and No lymphadenopathy Thyroid: Thyroid normal Lymphatic: no lymphadenopathy noted Resp Effort & Inspection: normal respiratory effort and able to speak in complete sentences Auscultation: clear to auscultation bilaterally Cardio Heart sounds: S1 normal heart sound present and S2 normal heart sound present GI Palpation (GI): Soft to palpation and nontender Auscultation: normal bowel sounds General: Yes no CVA tenderness Back/Spine/Pelvis Back: no CVA tenderness Skin General skin exam: elasticity normal and turgor normal Neuro General: patient oriented x3 and gait normal Cranial nerves: Yes Equal, round and reactive pupils present Speech: No Abnormal speech present Coordination: tandem gait normal and Romberg test negative Extrem General: Yes normal exam except as noted and No edema Coding Level of Care Code Est Pt Level 3 (59626) Est Pt Prev Care >65y(40521) Diagnoses Encounter for general adult medical examination with abnormal findings Z00.01 Age-related osteoporosis without current pathological fracture M81.0 Osteoporosis type: age-related Presence of current pathological fracture: without current pathological fracture Hypertension, essential I10 Environmental allergies Z91.09 Lipid disorder E78.9 Pre-diabetes R73.03 Right lumbar radiculitis M54.16 Paresthesia of right leg R20.2 Additional Codes PHQ-9 - 70192 - PHQ-9 Billing: Yes ([id number]) Assessment & Plan Assessment & Plan (1) Encounter for general adult medical examination with abnormal findings: Code(s): Z00.01 - Encounter for general adult medical examination with abnormal findings Category: Medical (2) Osteoporosis: Code(s): M81.0 - Age-related osteoporosis without current pathological fracture Category: Medical Qualifiers: Osteoporosis type: age-related Presence of current pathological fracture: without current pathological fracture Qualified Code(s): M81.0 - Age- related osteoporosis without current pathological fracture (3) Hypertension, essential: Code(s): I10 - Essential (primary) hypertension Category: Medical (4) Environmental allergies: Code(s): Z91.09 - Other allergy status, other than to drugs and biological substances Category: Medical (5) Lipid disorder: Code(s): E78.9 - Disorder of lipoprotein metabolism, unspecified Category: Medical (6) Pre-diabetes: Code(s): R73.03 - Prediabetes Category: Medical (7) Right lumbar radiculitis: Code(s): M54.16 - Radiculopathy, lumbar region Category: Medical (8) Paresthesia of right leg: Code(s): R20.2 - Paresthesia of skin Category: Medical Plan Patient is 73-year-old female came in today her physical exam Patient suffers from chronic back pain I have sent cyclobenzaprine 5 mg to be taken at night as needed patient suffers from chronic back pain radiating to right leg causing paresthesia She just returned from [place] where she was cooking for several people, symptoms has flared up. However manageable She does not want to take muscle relaxer anymore, as it makes her very drowsy. Hyperparathyroidism management through endocrinology Bone density shows score of -3.1, patient is on Prolia injection Hypertension:? Patient is on irbesartan 75 mg, blood pressure is stable patient is tolerating medication. Lipid disorder:? Lipids are controlled with atorvastatin 20 mg and diet c ontrolled no side effects. Allergies are stable with medications Arthrosis:? Patient also take Tylenol off and on, Last set of lab reviewed and Labs done this month reviewed as well with the patient Mammogram appointment is coming up She is no longer having colonoscopies She is no longer seeing OBGYN Follow-up 4 months Medications: Refilled acetaminophen (Tylenol) 650 mg (2 x 325 mg) PO TID 90 days PRN 180 tabs 3RF pain M19.90 - Unspecified osteoarthritis, unspecified site aspirin 81 mg PO DAILY 90 days 90 tabs 3RF I10 - Essential (primary) hypertension atorvastatin 20 mg PO DAILY 90 tabs 3RF cetirizine 10 mg PO DAILY 90 days 90 tabs 3RF clotrimazole-betamethasone 1-0.05 % 1 appl topical DAILY 45 grams 0RF famotidine 20 mg PO BEDTIME 90 days 90 tabs 1RF irbesartan 75 mg PO DAILY 90 days 90 tabs 1RF Discontinued cyclobenzaprine Discontinued Reason: Doctor's Order 5 mg PO BEDTIME 30 days 30 tabs 0RF M54.9 - Dorsalgia, unspecified
== END 2024-09-24 09:00 | disposition home or self-care (01) ==
PROVIDERS: PCP Internal Medicine; Visit Provider Internal Medicine
DX: Z00.00 Encounter for general adult medical examination without abnormal findings (principal); M54.16 Radiculopathy, lumbar region; M81.0 Age-related osteoporosis without current pathological fracture; I10 Essential (primary) hypertension; Z91.09 Other allergy status, other than to drugs and biological substances; E78.9 Disorder of lipoprotein metabolism, unspecified; R73.03 Prediabetes; R20.2 Paresthesia of skin

== ENCOUNTER → 2024-09-24 08:06 | Outpatient (BNVA) | payer MEDICARE, SELFPAY | PROVIDERS: PCP Internal Medicine; Visit Provider Internal Medicine | DX: Z00.01 Encounter for general adult medical examination with abnormal findings (principal); I10 Essential (primary) hypertension; E78.9 Disorder of lipoprotein metabolism, unspecified; R73.03 Prediabetes; M54.16 Radiculopathy, lumbar region; R20.2 Paresthesia of skin; Z91.09 Other allergy status, other than to drugs and biological substances | CPT/HCPCS: 96127; 99212; 99397 ==

== ENCOUNTER 2024-10-08 07:27 | Outpatient (REF) | payer MEDICARE, SELFPAY ==
--- NOTE | ~2024-10-08 | MM_ITS ---
EXAMINATION: MM SCREENING DIGITAL BREAST TOMOSYNTHESIS, BILATERAL CLINICAL INFORMATION: Screening. Asymptomatic. COMPARISON: Mammography: Comparison is made with available priors TECHNIQUE: Digital breast mammography with tomosynthesis is performed in both the craniocaudal and mediolateral oblique views along with computer-aided detection (CAD). FINDINGS: The breasts are heterogeneously dense, which may obscure small masses (ACR BI-RADS breast composition Category c). There are no significant masses, abnormal calcifications, or other abnormalities. MM/MM tomosynthesis screening BI IMPRESSION: No mammographic evidence of malignancy. ASSESSMENT: BI-RADS BI-RADS 1 - Negative RECOMMENDATION: Routine annual mammography screening. 1 year F/U This examination should not preclude the clinical evaluation of a suspicious palpable abnormality. This patient's information was entered into a reminder system with a target due date for their next mammogram. Electronically signed by: Pushpa Coe DO 10/14/2024 08:11 AM BOYD
== END 2024-10-08 07:28 | disposition home or self-care (01) ==
LOC: HO.MAMMO 07:27
PROVIDERS: PCP Internal Medicine; Visit Provider Internal Medicine
DX: Z12.31 Encounter for screening mammogram for malignant neoplasm of breast (principal)
CPT/HCPCS: 77063; 77067

== ENCOUNTER → 2024-10-08 07:45 | Outpatient (BNV) | payer MEDICARE, SELFPAY | PROVIDERS: PCP Internal Medicine; Visit Provider Internal Medicine | DX: Z12.31 Encounter for screening mammogram for malignant neoplasm of breast (principal) | CPT/HCPCS: 77063; 77067 ==

== ENCOUNTER 2024-12-06 09:00 | Outpatient (REF) | payer MEDICARE, SELFPAY ==
--- OUTSIDE RECORDS SUMMARY | 2024-12-06 09:21 | XMS_ITS | Clinical Summary ---
Author Organization [employer] Address [address] [place] [address] [address] [place] [address] Care Team Providers Care Slab Miller Operator Name Role Phone Unavailable Primary Care Provider Unavailabl e Social History Tobacco Use Types Packs/Day Years Used Date Smoking Tobacco: Never Assessed Comments Unknown Sex and Gender Information Value Date Recorded Sex Assigned at Female 09/02/2022 10:23 AM EDT Legal Sex Female 10:23 AM EDT Gender Identity Female 09/02/2022 10:23 AM EDT Sexual Orientation Choose not to disclose 2021 10:23 AM EDT Last Filed Vital Signs Vital Sign Reading Time Taken Comments Blood Pressure 124/82 10/05/2020 12:12 AM EST Pulse - - Temperature - - Respiratory Rate - - Oxygen Saturation - - Inhaled Oxygen Concentration - - Weight - - Height - - Body Mass Index - - Plan of Treatment Health Maintenance Due Date Last Done Comments CT Colonography 1952 Colonoscopy 1952 Colorectal Cancer Screening 1952 Depression Screening 1952 FIT DNA/Cologuard 1952 FIT 1952 FOBT 1952 Sigmoidoscopy 1952 Alcohol/Substance Use Screening 1964 Tobacco Screening 1964 DTaP/Tdap/Td Vaccines (1 - Tdap) 1971 Mammogram 1992 Pneumococcal Vaccine: 50+ Ye ars (1 of 1 - PCV) 2002 Zoster Vaccines (1 of 2) 2002 COVID-19 Vaccine ( - 2023-2 5 season) 2024 Influenza Vaccine (#1) 2024 RSV Patients and Pa tients Aged 60 years or older (1 - 1-dose 75+ series) 2027 HIB Vaccines Aged Out No longer eligi ble based on patient's age to complete this topic HPV Vaccines Aged Out No longer eligi ble based on patient's age to complete this topic Hepatitis A Vaccines Aged Out No long er eligible based on patient's age to complete this topic Hepatitis B Vaccines Aged Out No long er eligible based on patient's age to complete this topic IPV Vaccines Aged Out No longer eligi ble based on patient's age to complete this topic Meningococcal Vaccine Aged Out No yonis mayra eligible based on patient's age to complete this topic RSV under 20 months Aged Out No longe r eligible based on patient's age to complete this topic Rotavirus Vaccines Aged Out No longer eligible based on patient's age to complete this topic
--- OUTSIDE RECORDS SUMMARY | 2024-12-06 09:21 | XMS_ITS | Encounter Summary ---
Author Organization [employer] Address [address] [facility] [address] [place] [address] Care Team Providers Care Travel Professional Name Role Phone Unavailable Primary Care Provider Unavailabl e Encounter Details Date Type Department Care Team (Latest Contact Info) Description 06/02/2019 Abstract [facility] CONVERSIONS Dental, Provider, DDS Social History Tobacco Use Types Packs/Day Years Used Date Smoking Tobacco: Never Assessed Comments Unknown Sex and Gender Information Value Date Recorded Sex Assigned at Female 09/02/2022 10:23 AM EDT Legal Sex Female 10:23 AM EDT Gender Identity Female 09/02/2022 10:23 AM EDT Sexual Orientation Choose not to disclose 2021 10:23 AM EDT documented as of this encounter Plan of Treatment Not on file documented as of this encounter Visit Diagnoses Not on filedocumented in this encounter
[2024-12-06 09:38] VITALS: BP 117/59; PULSE 72; RESP 18; TEMP 36.1; O2SAT 99; BMI 22.8
== END 2024-12-06 09:01 | disposition home or self-care (01) ==
LOC: HO.MS 09:00
PROVIDERS: PCP Internal Medicine; Visit Provider Ophthalmology
PROC: (CPT 66821; principal; 2024-12-06 12:10)
DX: H26.491 Other secondary cataract, right eye (principal)
CPT/HCPCS: 66821

== ENCOUNTER 2024-12-27 10:34 | Outpatient (REF) | payer MEDICARE, SELFPAY ==
[2024-12-27 10:47] VITALS: BP 110/68; PULSE 76; RESP 16; TEMP 36.1; BMI 22.8
[2024-12-27 11:11] VITALS: O2SAT 98
--- OUTSIDE RECORDS SUMMARY | 2024-12-27 11:57 | XMS_ITS | Encounter Summary ---
Author Organization [employer] Address [address] [facility] [address] [place] [address] Care Team Providers Care Panel Machine Tender Name Role Phone Unavailable Primary Care Provider Unavailabl e Encounter Details Date Type Department Care Team (Latest Contact Info) Description 06/02/2019 Abstract [facility] CONVERSIONS Dental, Provider, DDS Social History Tobacco [...]
--- OUTSIDE RECORDS SUMMARY | 2024-12-27 11:57 | XMS_ITS | Clinical Summary ---
Author Organization [employer] Address [address] [place] [address] [address] [place] [address] Care Team Providers Care Justice Court Judge Name Role Phone Unavailable Primary Care Provider [...]
--- OUTSIDE RECORDS SUMMARY | 2024-12-27 11:57 | XMS_ITS | Patient Health Record ---
Author Organization [facility] [address] Address [address] [place] [address] Care Team Providers Care Furniture Assembly Supervisor Name Role Phone MONICA SOLIS Unavailable [phone] Allergies No Known Allergies Reason For Referral No Information Plan Of Treatment No Information Insurance Providers Payer Name Payer Address Payer Phone Subscriber Number Group Number Insured Name Patient Relationship to Insured Coverage Start Date Coverage End Date JEAN PIERRE [id number] [address] [address] [place] [phone] [id number] Ari Morgan Self - patient is the insured MEDICARE TRADIONAL PPO [address] [place] [phone] [id number] Ari Morgan Self - patient is the insured
== END 2024-12-27 10:35 | disposition home or self-care (01) ==
LOC: HO.MS 10:34
PROVIDERS: PCP Internal Medicine; Visit Provider Ophthalmology
PROC: (CPT 66821; principal; 2024-12-27 13:00)
DX: H26.492 Other secondary cataract, left eye (principal)
CPT/HCPCS: 66821

== ENCOUNTER 2025-01-26 09:28 | Outpatient (AMB) | payer MEDICARE, SELFPAY ==
[2025-01-26 09:30] VITALS: BP 112/68; PULSE 78; TEMP 36.7; O2SAT 99; BMI 32.6
--- NOTE | 2025-01-26 09:30 | MHC.PC.OV ---
Vital Signs 01/26/25 09:30 Height 5 ft 5 in Weight 196 lb 2 oz BMI 32.6 BP 112/68 Blood Pressure Location Rt brachial Position Sitting Pulse 78 Pulse Source Pulse Oximeter Temp 98.1 F Temp Source Oral Pulse Oximetry (%) 99 Oxygen Delivery Method Room Air Intake Visit Reasons: 4 months follow up Allergies No Known Allergies Allergy (Verified 01/26/25 09:34) Medication List - Last Reconciled 01/26/25 by Moustapha Mariee MD acetaminophen (Tylenol) 650 mg (2 x 325 mg) PO TID PRN 90 days aspirin 81 mg PO DAILY 90 days atorvastatin 20 mg PO DAILY [id number] 325 mg-12.5 mcg -2.75 mg (Citracal-D3 Maximum Plus) 1 tab PO BID cetirizine 10 mg PO DAILY 90 days clotrimazole-betamethasone 1-0.05 % 1 appl topical DAILY denosumab (Prolia) 60 mg subcut [id number] famotidine 20 mg PO BEDTIME 90 days irbesartan 75 mg PO DAILY 90 days Tobacco use date assessed: 01/26/25 Fall risk assessment: No Falls in past year Last assessed Fall Risk: 01/26/25 Dental Screening Dental Screen Date: 01/26/25 Did you have a dental visit in the last 12 months?: Yes Did you have a dental problem in the last 6 months where you did not have access to dental care?: No Was dental information given to patient?: Patient has dentist HPI 4 months follow up HPI Details History - The patient is a 74-year-old female presenting for follow-up appointment Continued to have lumbar pain radiating to both legs with paresthesia more so on the right side. She reports the pain as severe while standing or walking, but manageable when sitting or lying down. The patient had back surgery at the L5-S1 level, with arthritis confirmed by imaging in November last year. She has been taking Tylenol for pain management, with inconsistent relief, indicating that pain persists intermittently. Gabapentin has been suggested today by me as a new treatment option for nerve pain related to her back issues. The patient has been receiving Prolia injections for osteoporosis management biannually. Additional management included in the discussion involves her prior L5-S1 surgical intervention as influencing her current pain experience. Blood pressure is well-controlled continue irbesartan Continue atorvastatin 20 mg for lipid control Allergies are stable at this time GERD is stable with famotidine Medications - Atorvastatin for hyperlipidemia - Cetirizine for allergic rhinitis - Famotidine for gastroesophageal reflux disease - Irbesartan for hypertension - Prolia for osteoporosis, administered every six months; two injections received to date Problem List - Osteoarthritis multiple joints - Chronic lower back pain status post L5-S1 surgery - Hypertension - Osteoporosis - Hyperlipidemia - Allergic rhinitis - Gastroesophageal reflux disease (GERD) Diagnostic results - Labs: Kidney function tests completed in September were normal. - Imaging: Lumbar spine imaging conducted in November last year showed evidence of arthritis. Patient Instructions - Continue using gabapentin for nerve pain: Start with one capsule at night for one week, and then increase to two capsules every night. Duration of treatment should be at least one month to assess effectiveness. - Schedule lab work in the next month, ensuring to fast before the test. - If symptoms worsen or if there are additional concerns, contact the office promptly. - continue all other medications Review of Systems General: No fever no chills neurological: No headaches no dizziness ear nose throat: No sore throat no hearing difficulty no ear pain cardiovascular: No syncope, no chest pain, no palpitations gastrointestinal: No nausea vomiting or diarrhea endocrine: No polyuria polydipsia no heat intolerance genitourinary: No dysuria skin: No new complaints Physical Exam general: No acute distress HEENT: No acute findings neck: Supple respiratory system: Able to talk in full sentences, no audible wheeze no stridor cardiovascular: S1-S2 gastrointestinal: Hip pain noted, especially when standing or walking extremities: No new findings 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: Alert awake oriented x3 motor sensory intact, tingling noted from back skin: Normal turgor PFSH Medical History TIA (transient ischemic attack) Back pain Elevated cholesterol HTN (hypertension) Cataract Hypoparathyroidism Vitamin D deficiency Osteoporosis Hyperparathyroidism Surgical History Hx of cataract surgery History of hysteroscopy H/O colonoscopy History of back surgery History of parathyroid surgery Hx of neck surgery Hx of removal of neck cyst Hx of section Family History Father Diabetes Hypertension Mother Diabetes Hypertension Family/Other Colon cancer Social History Household Members Other:: uncle Housing: Apartment Are you a primary adult care manager to a significant other at home: No Do you presently have visiting nurse or other home services: No Alcohol intake: current Alcohol intake frequency: does not drink Patient Tobacco Use Status: Never used Tobacco e-Cigarette/Vaping Use: Never Used service: No Current occupational status: employed Cognitive needs: No Hearing needs: No Vision needs: Yes Questionnaire PHQ-9 Over the last 2 weeks, how often have you been bothered by any of the following problems? 1. Little interest or pleasure in doing things: not at all 2. Feeling down, depressed, or hopeless: not at all 3. Trouble falling or staying asleep, or sleeping too much: not at all 4. Feeling tired or having little energy: not at all 5. Poor appetite or overeating: not at all 6. Feeling bad about yourself - or that you are a failure or have let yourself or your family down: not at all 7. Trouble concentrating on things, such as reading the newspaper or watching television: not at all 8. Moving or speaking so slowly that other people could have noticed. Or the opposite - being so fidgety or restless that you have been moving around a lot more than usual: not at all 9. Thoughts that you would be better off or of hurting yourself in some way: not at all Total score: 0 Depression Screening Interpretation: Negative Depression Screening Done: Yes 47766 - PHQ-9 Billing: Yes Source: Developed by Drs. Doc Douglas, Di Villanueva, Marvin Thorne and colleagues, with an educational alfa from [employer]. Thrive Questionnaire Date Thrive assessed: 01/26/25 I am a: Patient What is your living situation today?: I have a steady place to live Within the past 12 months, did the food you bought not last and you didn't have the money to get more?: Often true Within the past 12 months, did you worry whether your food would run out before you got money to buy more?: Often true Do you have trouble paying for medicines?: No Do you have trouble getting transportation to medical appointments?: No Do you have trouble paying your heating and electricity bill?: No Do you have trouble taking care of your child, family member or friend?: No Do you have trouble with day-to-day activities such as bathing, preparing meals, shopping, managing finances, etc.?: No Are you currently unemployed and looking for a job?: No Are you interested in more education?: No Please select the resources that you would like help with: None Currently or been in a relationship where the following occur: No concerns reported THRIVE Score: 2 AUDIT C Alcohol Use Questionnaire (AUDIT-C) 1. How often do you have a drink containing alcohol?: Never 3. How often do you have six or more drinks on one occasion?: Never Total Score: 0 Score Reviewed/Action Taken: Yes PARI-7 AMB Questionnaire PARI-7 Date PARI - 7 assessed: 01/26/25 Feeling nervous, anxious, or on edge: 0 = Not at all Not being able to stop or control worryin = Not at all Worrying too much about different things: 0 = Not at all Trouble relaxin = Not at all Being so restless that it is hard to sit still: 0 = Not at all Becoming easily annoyed or irritable: 0 = Not at all Feeling afraid as if something awful might happen: 0 = Not at all Total PARI-7 score (0-4 normal; 5-9 mild; 10-14 moderate; 15-21 severe): 0 Source: Developed by Drs. Doc Douglas, Di Villanueva, Marvin Thorne and colleagues, with an educational alfa from [employer]. PARI-7 Assessment Billing PARI-7 Assessment Tool: PARI-7 Assessment 80366 Physical exam (Primary Care) Vital Signs: Last Vital Signs Temp 98.1 F 01/26/25 09:30 Pulse 78 01/26/25 09:30 BP 112/68 01/26/25 09:30 Pulse Ox 99 01/26/25 09:30 Oxygen Delivery Method Room Air 01/26/25 09:30 BMI result Body Mass Index 32.6 Tobacco/Smoking Status: Tobacco use Status Tobacco use date assessed 01/26/25 01/26/25 09:35 Patient Tobacco Use Status Never used Tobacco 01/26/25 09:30 e-Cigarette/Vaping Use Never Used 01/26/25 09:30 PHQ-9: PHQ-9 Score PHQ-9: Total score 0 01/26/25 09:41 Depression Screening Interpretation: Negative Thrive Assessment: Date of Thrive Assessment Date Thrive assessed 01/26/25 01/26/25 09:30 Currently or been in a relationship where the following occur: No concerns reported Coding Level of Care Code Est Pt Level 4 (47792) Complex EM visit Add On G2211 Diagnoses Hypertension, essential I10 Lipid disorder E78.9 Environmental allergies Z91.09 Vitamin D deficiency E55.9 Osteoporosis, unspecified osteoporosis type, unspecified pathological fracture presence M81.0 Osteoporosis type: unspecified Presence of current pathological fracture: unspecified Pre-diabetes R73.03 Right lumbar radiculitis M54.16 Paresthesia of right leg R20.2 Additional Codes PARI-7 Assessment Billing - PARI-7 Assessment Tool: PARI-7 Assessment 21345 ([id number]) PHQ-9 - 60009 - PHQ-9 Billing: Yes ([id number]) Assessment & Plan Assessment & Plan (1) Hypertension, essential: Code(s): I10 - Essential (primary) hypertension Category: Medical (2) Lipid disorder: Code(s): E78.9 - Disorder of lipoprotein metabolism, unspecified Category: Medical (3) Environmental allergies: Code(s): Z91.09 - Other allergy status, other than to drugs and biological substances Category: Medical (4) Vitamin D deficiency: Code(s): E55.9 - Vitamin D deficiency, unspecified Category: Medical (5) Osteoporosis: Code(s): M81.0 - Age-related osteoporosis without current pathological fracture Category: Medical Qualifiers: Osteoporosis type: unspecified Presence of current pathological fracture: unspecified Qualified Code(s): M81.0 - Age-related osteoporosis without current pathological fracture (6) Pre-diabetes: Code(s): R73.03 - Prediabetes Category: Medical (7) Right lumbar radiculitis: Code(s): M54.16 - Radiculopathy, lumbar region Category: Medical (8) Paresthesia of right leg: Code(s): R20.2 - Paresthesia of skin Category: Medical Plan History - The patient is a 74-year-old female presenting for follow-up appointment Continued to have lumbar pain radiating to both legs with paresthesia more so on the right side. She reports the pain as severe while standing or walking, but manageable when sitting or lying down. The patient had back surgery at the L5-S1 level, with arthritis confirmed by imaging in November last year. She has been taking Tylenol for pain management, with inconsistent relief, indicating that pain persists intermittently. Gabapentin has been suggested today by me as a new treatment option for nerve pain related to her back issues. The patient has been receiving Prolia injections for osteoporosis management biannually. Additional management included in the discussion involves her prior L5-S1 surgical intervention as influencing her current pain experience. Blood pressure is well-controlled continue irbesartan Continue atorvastatin 20 mg for lipid control Allergies are stable at this time GERD is stable with famotidine Medications - Atorvastatin for hyperlipidemia - Cetirizine for allergic rhinitis - Famotidine for gastroesophageal reflux disease - Irbesartan for hypertension - Prolia for osteoporosis, administered every six months; two injections received to date Problem List - Osteoarthritis multiple joints - Chronic lower back pain status post L5-S1 surgery - Hypertension - Osteoporosis - Hyperlipidemia - Allergic rhinitis - Gastroesophageal reflux disease (GERD) Diagnostic results - Labs: Kidney function tests completed in September were normal. - Imaging: Lumbar spine imaging conducted in November last year showed evidence of arthritis. Patient Instructions - Continue using gabapentin for nerve pain: Start with one capsule at night for one week, and then increase to two capsules every night. Duration of treatment should be at least one month to assess effectiveness. - Schedule lab work in the next month, ensuring to fast before the test. - If symptoms worsen or if there are additional concerns, contact the office promptly. - continue all other medications Orders: Orders Lipid Panel Today E55.9 - Vitamin D deficiency, unspecified, E78.9 - Disorder of lipoprotein metabolism, unspecified, I10 - Essential (primary) hypertension, M54.16 - Radiculopathy, lumbar region, M81.0 - Age-related osteoporosis without current pathological fracture, R20.2 - Paresthesia of skin, R73.03 - Prediabetes, Z91.09 - Other allergy status, other than to drugs and biological substances Vitamin D 25-OH (D2 and D3) Today E55.9 - Vitamin D deficiency, unspecified, E78.9 - Disorder of lipoprotein metabolism, unspecified, I10 - Essential (primary) hypertension, M54.16 - Radiculopathy, lumbar region, M81.0 - Age-related osteoporosis without current pathological fracture, R20.2 - Paresthesia of skin, R73.03 - Prediabetes, Z91.09 - Other allergy status, other than to drugs and biological substances Hemoglobin A1c Today E55.9 - Vitamin D deficiency, unspecified, E78.9 - Disorder of lipoprotein metabolism, unspecified, I10 - Essential (primary) hypertension, M54.16 - Radiculopathy, lumbar region, M81.0 - Age-related osteoporosis without current pathological fracture, R20.2 - Paresthesia of skin, R73.03 - Prediabetes, Z91.09 - Other allergy status, other than to drugs and biological substances Complete Blood Count Auto Diff Today E55.9 - Vitamin D deficiency, unspecified, E78.9 - Disorder of lipoprotein metabolism, unspecified, I10 - Essential (primary) hypertension, M54.16 - Radiculopathy, lumbar region, M81.0 - Age-related osteoporosis without current pathological fracture, R20.2 - Paresthesia of skin, R73.03 - Prediabetes, Z91.09 - Other allergy status, other than to drugs and biological substances Comprehensive [place]. Panel Fast Today E55.9 - Vitamin D deficiency, unspecified, E78.9 - Disorder of lipoprotein metabolism, unspecified, I10 - Essential (primary) hypertension, M54.16 - Radiculopathy, lumbar region, M81.0 - Age-related osteoporosis without current pathological fracture, R20.2 - Paresthesia of skin, R73.03 - Prediabetes, Z91.09 - Other allergy status, other than to drugs and biological substances Medications: New gabapentin 200 mg (2 x 100 mg) PO BEDTIME 30 days 60 caps 0RF
--- OUTSIDE RECORDS SUMMARY | 2025-01-26 10:36 | XMS_ITS | Clinical Summary ---
Author Organization [employer] Address [address] [place] [address] [address] [place] [address] Care Team Providers Care Smt Machine Operator Name Role Phone Unavailable Primary Care [...]
--- OUTSIDE RECORDS SUMMARY | 2025-01-26 10:36 | XMS_ITS | Encounter Summary ---
Author Organization [employer] Address [address] [facility] [address] [place] [address] Care Team Providers Care Speech Communication Professor Name Role Phone Unavailable Primary Care Provider Unavailabl e Encounter Details Date Type Department Care Team (Latest Contact Info) Description 06/02/2019 Abstract [facility] CONVERSIONS Dental, Provider, DDS Social [...]
== END 2025-01-26 09:52 | disposition home or self-care (01) ==
LOC: HO.HMCC 09:29
PROVIDERS: PCP Internal Medicine; Visit Provider Internal Medicine
DX: I10 Essential (primary) hypertension (principal); E78.9 Disorder of lipoprotein metabolism, unspecified; Z91.09 Other allergy status, other than to drugs and biological substances; E55.9 Vitamin D deficiency, unspecified; M81.0 Age-related osteoporosis without current pathological fracture; R73.03 Prediabetes; M54.16 Radiculopathy, lumbar region; R20.2 Paresthesia of skin

== ENCOUNTER → 2025-01-26 09:28 | Outpatient (BNVA) | payer MEDICARE, SELFPAY | PROVIDERS: PCP Internal Medicine; Visit Provider Internal Medicine | DX: I10 Essential (primary) hypertension (principal); E78.9 Disorder of lipoprotein metabolism, unspecified; Z91.09 Other allergy status, other than to drugs and biological substances; E55.9 Vitamin D deficiency, unspecified; M81.0 Age-related osteoporosis without current pathological fracture; R73.03 Prediabetes; M54.16 Radiculopathy, lumbar region; R20.2 Paresthesia of skin | CPT/HCPCS: 96127; 99212 ==

== ENCOUNTER 2025-02-24 08:02 | Outpatient (REF) | payer MEDICARE, SELFPAY ==
--- OUTSIDE RECORDS SUMMARY | 2025-02-24 08:12 | XMS_ITS | Clinical Summary ---
Author Organization [employer] Address [address] [place] [address] [address] [place] [address] Care Team Providers Care Director Government Name Role Phone Unavailable Primary Care Provider [...]
--- OUTSIDE RECORDS SUMMARY | 2025-02-24 08:12 | XMS_ITS | Patient Health Record ---
Author Organization [facility] [address] Address [address] [place] [address] Care Team Providers Care Gasoline Catalyst Operator Name Role Phone MONICA SOLIS Unavailable [phone] Allergies No Known Allergies Reason For Referral No Information Plan Of Treatment No Information Insurance Providers Payer Name Payer Address Payer Phone Subscriber Number Group Number Insured Name Patient Relationship to Insured Coverage Start Date Coverage End Date JEAN PIERRE [id number] DoNotUse [address] [address] [place] [phone] [id number] Ari Morgan Self - patient is the insured MEDICARE TRADIONAL PPO [address] [place] [phone] [id number] Ari Morgan Self - patient is the insured
--- OUTSIDE RECORDS SUMMARY | 2025-02-24 08:12 | XMS_ITS | Encounter Summary ---
Author Organization [employer] Address [address] [facility] [address] [place] [address] Care Team Providers Care Screen Printing Equipment Setter Name Role Phone Unavailable Primary Care Provider Unavailabl e Encounter Details Date Type Department Care Team (Latest Contact Info) Description 06/02/2019 Abstract [facility] CONVERSIONS Dental, Provider, DDS Social History [...]
[2025-02-24 10:41] LABS: MANUAL DIFF FLAG NO
[2025-02-24 10:50] LABS: Basophils Percent Auto 0.7 % (0-2); Eosinophils Absolute Auto 0.1 X10*3/uL (0.0-0.4); Eosinophils Percent Auto 3.2 % (0-4); Hematocrit 37.5 % (37.0-47.0); Hemoglobin 12.5 g/dl (12.0-16.0); Lymphocytes Absolute Auto 1.8 X10*3/uL (1.2-4.9); Lymphocytes Percent Auto 40.5 % (20-40); Mean Corpuscular HGB Conc 33.3 g/dl (31.0-35.0); Mean Corpuscular Hemoglobin 30.6 pg (27.0-33.0); Mean Corpuscular Volume 91.7 fL (80.0-98.0); Mean Platelet Volume 9.6 fL (9.4-12.3); Monocytes Absolute Auto 0.4 X10*3/uL (0.1-1.2); Monocytes Percent Auto 8.6 % (2-11); Platelet Count 247 X10*3/uL (160-400); Red Blood Count 4.09 X10*6/uL (4.20-5.50); Red Cell Distribution Width 12.6 % (11.0-16.0); White Blood Count 4.3 X10*3/uL (4.8-10.8)
[2025-02-24 11:10] LABS: Alanine Aminotransferase 30 U/L (0-31); Albumin Level 4.2 g/dL (3.5-5.0); Alkaline Phosphatase 40 U/L (39-117); Anion Gap 10 (12-20); Aspartate Amino Transferase 39 U/L (5-31); Bilirubin Total 0.5 mg/dL (0.0-1.0); Blood Urea Nitrogen 12 mg/dL (9-16); Calcium 8.3 mg/dL (8.4-10.2); Carbon Dioxide 30 mmol/L (22-29); Chloride 105 mmol/L (96-108); Cholesterol 152 mg/dL (<200); Estimated Glomerular Filt Rate > 60; Glucose Fasting 99 mg/dL (60-99); HDL Cholesterol 48 mg/dL (>40); LDL Cholesterol Calculated 85 mg/dL (<100); Potassium 4.2 mmol/L (3.3-5.1); Sodium 141 mmol/L (135-145); Triglycerides 96 mg/dL (<150)
[2025-02-24 11:20] LABS: Estimated Average Glucose 123 mg/dL; Hemoglobin A1C 132.7025 umol/L; Hemoglobin A1c % 5.9 % (<6.0); Total Hemoglobin (HGBA1C) 3232.9039 umol/L
[2025-02-28 14:58] LABS: Vitamin D 25-OH, D2 <4 ng/mL; Vitamin D 25-OH, D3 52 ng/mL; Vitamin D 25-OH, Total 52 ng/mL (30-100)
== END 2025-02-24 08:03 | disposition home or self-care (01) ==
LOC: HO.HMGCLDS 08:02
PROVIDERS: PCP Internal Medicine; Visit Provider Internal Medicine
DX: I10 Essential (primary) hypertension (principal); E78.9 Disorder of lipoprotein metabolism, unspecified; Z91.09 Other allergy status, other than to drugs and biological substances; E55.9 Vitamin D deficiency, unspecified; M81.0 Age-related osteoporosis without current pathological fracture; R73.03 Prediabetes; M54.16 Radiculopathy, lumbar region; R20.2 Paresthesia of skin
CPT/HCPCS: 36415; 80053; 80061; 82306; 83036; 85025

== ENCOUNTER 2025-03-14 08:55 | Outpatient (REF) | payer MEDICARE, SELFPAY ==
--- OUTSIDE RECORDS SUMMARY | 2025-03-14 10:02 | XMS_ITS | Clinical Summary ---
Author Organization [employer] Address [address] [facility] [address] [place] [address] Care Team Providers Care Winchman/Crane Operator Name Role Phone Unavailable Primary Care [...]
--- OUTSIDE RECORDS SUMMARY | 2025-03-14 10:02 | XMS_ITS | Encounter Summary ---
Author Organization [employer] Address [address] [facility] [address] [place] [address] Care Team Providers Care Bottle Capper Name Role Phone Unavailable Primary Care Provider Unavailabl e Encounter Details Date Type Department Care Team (Latest Contact Info) Description 06/02/2019 Abstract [facility] CONVERSIONS Dental, Provider, DDS Social History Tobacco [...]
[2025-03-14 10:59] LABS: Albumin Level 4.4 g/dL (3.5-5.0); Anion Gap 14 (12-20); Blood Urea Nitrogen 14 mg/dL (9-16); Calcium 8.7 mg/dL (8.4-10.2); Carbon Dioxide 30 mmol/L (22-29); Chloride 104 mmol/L (96-108); Estimated Glomerular Filt Rate > 60; Glucose Random 79 mg/dL (60-115); Potassium 4.5 mmol/L (3.3-5.1); Sodium 143 mmol/L (135-145)
[2025-03-14 11:14] LABS: Parathyroid Hormone Intact 27.9 pg/mL (8.7-77.1)
== END 2025-03-14 08:56 | disposition home or self-care (01) ==
LOC: HO.LAB 08:55
PROVIDERS: PCP Internal Medicine; Visit Provider Internal Medicine Endocrinology, Diabetes & Metabolism
DX: M81.0 Age-related osteoporosis without current pathological fracture (principal); E21.3 Hyperparathyroidism, unspecified
CPT/HCPCS: 36415; 80048; 82040; 83970; 99212

== ENCOUNTER 2025-03-14 08:55 | Outpatient (AMB) | payer MEDICARE, SELFPAY ==
--- OUTSIDE RECORDS SUMMARY | 2025-03-14 09:01 | XMS_ITS | Encounter Summary ---
Author Organization [employer] Address [address] [facility] [address] [place] [address] Care Team Providers Care Commercial Census Taker Name Role Phone Unavailable Primary Care Provider Unavailabl e Encounter Details Date Type Department Care Team (Latest Contact Info) Description 06/02/2019 Abstract [facility] CONVERSIONS Dental, Provider, DDS Social History Tobacco [...]
--- OUTSIDE RECORDS SUMMARY | 2025-03-14 09:01 | XMS_ITS | Clinical Summary ---
Author Organization [employer] Address [address] [facility] [address]t [place] [address] Care Team Providers Care Horticultural Manager Name Role Phone Unavailable Primary Care Provider [...]
--- OUTSIDE RECORDS SUMMARY | 2025-03-14 09:01 | XMS_ITS | Patient Health Record ---
Author Organization [facility] [address] Address [address] [place] [address] Care Team Providers Care Adobe Architect Name Role Phone MONICA SOLIS Unavailable [phone] Allergies No Known Allergies Reason For Referral No Information Plan Of Treatment No Information Insurance Providers Payer Name Payer Address Payer Phone Subscriber Number Group Number Insured Name Patient Relationship to Insured Coverage Start Date Coverage End Date JEAN PIERRE [id number] DoNotUse [address] [address] [place] [address] [id number] Ari Morgan Self - patient is the insured MEDICARE TRADIONAL PPO [address] [place] [phone] [id number] Ari Morgan Self - patient is the insured
--- NOTE | 2025-03-14 09:10 | MHC.OFFVIS ---
Vital Signs 03/14/25 09:12 Height 5 ft 3.39 in Weight 138 lb 0.15 oz BMI 24.1 BP 110/68 Blood Pressure Location Lt brachial Position Sitting Pulse 74 Pulse Source Pulse Oximeter Pulse Oximetry (%) 95 Oxygen Delivery Method Room Air Intake Visit Reasons: Osteoporosis/prolia injection Intake Note: Patient present today for Osteoporosis and Prolia Injection. Bottling Machine Operator Required: No Accompanied by: Self / Same As Patient Allergies No Known Allergies Allergy (Verified 03/14/25 09:14) Medication List - Last Reconciled 03/14/25 by Doc Ayala MD acetaminophen (Tylenol) 650 mg (2 x 325 mg) PO TID PRN 90 days aspirin 81 mg PO DAILY 90 days atorvastatin 20 mg PO DAILY [id number] 325 mg-12.5 mcg -2.75 mg (Citracal-D3 Maximum Plus) 1 tab PO BID cetirizine 10 mg PO DAILY 90 days clotrimazole-betamethasone 1-0.05 % 1 appl topical DAILY denosumab (Prolia) 60 mg subcut [id number] famotidine 20 mg PO BEDTIME 90 days gabapentin 200 mg (2 x 100 mg) PO BEDTIME 30 days irbesartan 75 mg PO DAILY 90 days HPI Comments Details: 74 YO Female with PMHx HTN, HLD and recent TIA is seen in F/U for Osteoporosis and Hyperparathyroidism. She is S/P a subtotal parathyroidectomy 09/12/2020. She was first made aware of the diagnosis of Osteoporosis in 2019, but review of her records reveal that this was first diagnosed on DXA in 2013. She has Osteoporosis of the hip and Forearm, and Osteopenia of the spine. Her Osteoporosis of the hip is severe, with a T score of -4.4 of the LFN and -4.0 of the L total hip. This has declined 24.6% from 2013. Labs do reveal mild hypercalcemia in the past. After her initial visit we completed workup for hyperparathyroidism, and she does appear to have a mild degree of hyperparathyroidism. Calcium is high normal, higher than expected for her age, with PTH inappropriately normal. Bone deminieralization is consistent with the pattern expected with hyperparathyroidism. She was referred to Dr. Ahn and underwent Sestamibi and 4D CT scan. This revealed no obvious adenoma within the neck, but there was concern for a large mediastinal parathyroid near the tracheal bifurcation. She was subsequently referred to CT Surgeon Dr. Lisa Boyle, and underwent CT surgery to excise this gland. Unfortunately this was a reactive lymph node, and not a parathyroid adenoma. She then underwent exploratory neck surgery with Dr. Ahn 09/12/2020 which revealed 4 gland parathyroid hyperplasia. She had a subtotal parathyroidectomy with just a remnant of the L superior gland remaining. Intraoperative PTH declined from 59-14, indicating cure. 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 She has since been tapered off of this. She does remain on Citracal 1 tab PO BID. She does report cramping in her hands and legs, but denies any paresthesias. She has never been treated for her Osteoporosis. UTD on dental cleanings and sees dentist every 6 months. No planned upcoming dental work or extractions. DXA dated: 06/19/2021 FINDINGS: AP SPINE L1-L3 (excluding L4): The data of L1-L4 has been changed to exclude the L4 vertebral body, because hardware at this level may cause overestimation of lumbar spine density. Current: BMD 0.942 g/cm2, Z-score -0.2, T-score -1.9, osteopenia, 1.0% increase from previous, 12.2% decrease from baseline (<5% change is not significant). Prior: BMD 0.933 g/cm2. Baseline: BMD 1.073 g/cm2. LEFT FEMUR, NECK: Current: BMD 0.597 g/cm2, Z-score -1.5, T-score -3.2, osteoporosis. Prior: BMD 0.432 g/cm2. Baseline: BMD 0.745 g/cm2. LEFT FEMUR, TOTAL: Current: BMD 0.659 g/cm2, Z-score -1.3, T-score -2.8, osteoporosis, 29.5% increase from previous, 22.5% decrease from baseline (<5% change is not significant). Prior: BMD 0.509 g/cm2. Baseline: BMD 0.850 g/cm2. Labs: Laboratory Tests 10/18/21 10/17/22 10/17/22 09:36 07:45 07:45 Estimated GFR > 60 Calcium 8.9 Albumin 4.4 4.5 25-OH Vitamin D Total 40.3 46.5 PTH Intact 30 Calcium (PTH Intact) 8.5 L Taking calcium and vitamin D. No fractures since last visit . Was on Prolia since 03/2024 The patient is a 74-year-old female presenting with hypocalcemia prior to planned Deosumab (Prolia) administration. The patient has had a parathyroidectomy with past evaluations confirming normal results. She reports no recent fractures and has been taking calcium and vitamin D supplements consistently. Lab results from two weeks ago demonstrated a calcium level of 8.3 mg/dL, which is on the lower side of normal. The patient is asymptomatic concerning hypocalcemia and will have calcium levels checked before administering Prolia therapy. - Musculoskeletal: Denies fractures since the last visit - General: Denies current symptoms indicative of hypocalcemia PFSH Medical History TIA (transient ischemic attack) Back pain Elevated cholesterol HTN (hypertension) Cataract Hypoparathyroidism Vitamin D deficiency Osteoporosis Hyperparathyroidism Surgical History Hx of cataract surgery History of hysteroscopy H/O colonoscopy History of back surgery History of parathyroid surgery Hx of neck surgery Hx of removal of neck cyst Hx of section Family History Father Diabetes Hypertension Mother Diabetes Hypertension Family/Other Colon cancer Social History Household Members Other:: uncle Housing: Apartment Are you a primary sub acute care nurse to a significant other at home: No Do you presently have visiting nurse or other home services: No Alcohol intake: current Alcohol intake frequency: does not drink Patient Tobacco Use Status: Never used Tobacco e-Cigarette/Vaping Use: Never Used service: No Current occupational status: employed Cognitive needs: No Hearing needs: No Vision needs: Yes Assessment & Plan Assessment & Plan (1) Osteoporosis: Code(s): M81.0 - Age-related osteoporosis without current pathological fracture Category: Medical Qualifiers: Osteoporosis type: unspecified Presence of current pathological fracture: unspecified Qualified Code(s): M81.0 - Age-related osteoporosis without current pathological fracture Plan: This 72-year-old female with a history of osteoporosis and primary hyperparathyroid who underwent exploratory neck surgery with Dr. Ahn 09/12/2020 which revealed 4 gland parathyroid hyperplasia. She had a subtotal parathyroidectomy with just a remnant of the L superior gland remaining. Intraoperative PTH declined from 59-14, indicating cure. She has residual osteoporosis on DEXA Other secondary workup for osteoporosis was negative. About to receive Prolia injection today but calcium low normal The plan is to check calcium, albumin today prior to administering the Prolia. We will repeat DEXA in 10/2025 1. Hypocalcemia The patient's current calcium level at 8.3 mg/dL requires monitoring due to administration considerations for Denosumab (Prolia). We will perform another calcium test today, and if results improve, we'll proceed with treatment. Continue calcium supplementation as prescribed. 2. Denosumab (Prolia) Administration Prior calcium level assessment is essential before administering Denosumab to reduce hypocalcemia risks. Once confirmed safe by lab results, the treatment can be administered. I discussed with the patient the need to repeat her calcium level test today due to the slightly low levels previously recorded. This will help ensure safe administration of Denosumab (Prolia), given its association with lowering calcium levels. I explained the risks of proceeding without confirming normalization of her calcium levels, and she understood and agreed to follow through with testing and subsequent appointment for Prolia if levels return normal. The patient will return by the end of the week for treatment based on lab outcomes. We also reviewed the importance of maintaining her compliance with the current calcium and vitamin D regimen. - Proceed to the lab today for a repeat calcium blood test. - Continue taking your calcium and vitamin D supplements as directed. - Expect to return for the Denosumab (Prolia) treatment later this week if calcium levels are safe. - Report any new symptoms or concerns immediately. The patient had an opportunity to ask questions regarding treatment plan. The patient expressed understanding and agreement with the above treatment plan. Patient was informed and verbally consented to the use of an ambient scribe for clinic note documentation during this visit. Orders: Orders Calcium Today M81.0 - Age-related osteoporosis without current pathological fracture XR DEXA axial skeleton 7 Months M81.0 - Age-related osteoporosis without current pathological fracture Albumin Level Today M81.0 - Age-related osteoporosis without current pathological fracture Parathyroid Hormone Intact Today E21.3 - Hyperparathyroidism, unspecified Coding Level of Care Code Est Pt Level 3 (33356) Diagnoses Osteoporosis, unspecified osteoporosis type, unspecified pathological fracture presence M81.0 Osteoporosis type: unspecified Presence of current pathological fracture: unspecified
[2025-03-14 09:12] VITALS: BP 110/68; PULSE 74; O2SAT 95; BMI 24.1
== END 2025-03-14 10:06 | disposition home or self-care (01) ==
LOC: HO.ENCR 08:56
PROVIDERS: PCP Internal Medicine; Visit Provider Internal Medicine Endocrinology, Diabetes & Metabolism
DX: M81.0 Age-related osteoporosis without current pathological fracture (principal)
CPT/HCPCS: 99213

== ENCOUNTER 2025-03-15 08:27 | Outpatient (AMB) | payer MEDICARE, SELFPAY ==
--- OUTSIDE RECORDS SUMMARY | 2025-03-15 08:43 | XMS_ITS | Encounter Summary ---
Author Organization [employer] Address [address] [facility] [address] [place] [address] Care Team Providers Care Electrical Logging Operator Name Role Phone Unavailable Primary Care Provider Unavailabl e Encounter Details Date Type Department Care Team (Latest Contact Info) Description 06/02/2019 Abstract [facility] CONVERSIONS Dental, Provider, DDS Social History Tobacco [...]
--- OUTSIDE RECORDS SUMMARY | 2025-03-15 08:43 | XMS_ITS | Clinical Summary ---
Author Organization [employer] Address [address] [facility] [address] [place] [address] Care Team Providers Care Salesperson Jewelry Name Role Phone Unavailable Primary Care Provider [...]
--- OUTSIDE RECORDS SUMMARY | 2025-03-15 08:43 | XMS_ITS | Patient Health Record ---
Author Organization [facility] [address] Address [address] [place] [address] Care Team Providers Care Director [employer] Name Role Phone MONICA SOLIS Unavailable [phone] Allergies No Known Allergies Reason For Referral No Information Plan Of Treatment No Information Insurance Providers Payer Name Payer Address Payer Phone Subscriber Number Group Number Insured Name Patient Relationship to Insured Coverage Start Date Coverage End Date JEAN PIERRE [id number]NotUse [address] [address] [place] [phone] [id number] Ari Morgan Self - patient is the insured MEDICARE TRADIONAL PPO [address] [place] [phone] [id number] Ari Morgan Self - patient is the insured
--- NOTE | 2025-03-15 09:02 | AM.OFFVISNUR ---
Intake Visit Reasons: Prolia Injection Allergies No Known Allergies Allergy (Verified 03/14/25 09:14) Office Meds Prolia 60 mg/mL subcutaneous syringe Performing Provider: Doc Ayala MD [place] [facility] [place] [facility] Administered by: Natacha Lebron RN on 03/15/25 09:02 Dose Route Admin Location Dispensed Lot Number Expiration Date NDC Social Secretary 60 mg subcut right upper arm 1 mL [id number] 05/02/27 04210-126-82 [employer] Comments: Pt tolerated injection well. Pt reported no adverse reaction to previous injections. No further questions at this time. Assessment & Plan Assessment & Plan Orders: Orders AMB Denosumab Injection Practice Supplied Today M81.0 - Age-related osteoporosis without current pathological fracture Medications: New Prolia (denosumab) 60 mg subcut ONCE 1 mL 0RF NS M81.0 - Age-related osteoporosis without current pathological fracture Coding
== END 2025-03-15 09:00 | disposition home or self-care (01) ==
LOC: HO.ENCR 08:28
PROVIDERS: PCP Internal Medicine; Visit Provider Internal Medicine Endocrinology, Diabetes & Metabolism
DX: M81.0 Age-related osteoporosis without current pathological fracture (principal)

== ENCOUNTER → 2025-03-15 08:27 | Outpatient (BNVA) | payer MEDICARE, SELFPAY | PROVIDERS: PCP Internal Medicine; Visit Provider Internal Medicine Endocrinology, Diabetes & Metabolism | DX: M81.0 Age-related osteoporosis without current pathological fracture (principal) | CPT/HCPCS: 96372; J0897 ==

== ENCOUNTER 2025-04-29 08:55 | Outpatient (AMB) | payer MEDICARE, SELFPAY ==
[2025-04-29 09:01] VITALS: BP 108/70; PULSE 82; TEMP 36.3; O2SAT 99; BMI 24.4
--- NOTE | 2025-04-29 09:01 | A.OFFPC_ITS ---
Vital Signs 04/29/25 09:01 Height 5 ft 3.39 in Weight 139 lb 6 oz BMI 24.4 BP 108/70 Blood Pressure Location Rt brachial Position Sitting Pulse 82 Pulse Source Pulse Oximeter Temp 97.3 F Temp Source Temporal Artery Scan Pulse Oximetry (%) 99 Oxygen Delivery Method Room Air Intake Visit Reasons: 3m follow up Allergies No Known Allergies Allergy (Verified 04/29/25 09:03) Medication List - Last Reconciled 04/29/25 by Moustapha Mariee MD acetaminophen (Tylenol) 650 mg (2 x 325 mg) PO TID PRN 90 days aspirin 81 mg PO DAILY 90 days atorvastatin 20 mg PO DAILY [id number] 325 mg-12.5 mcg -2.75 mg (Citracal-D3 Maximum Plus) 1 tab PO BID cetirizine 10 mg PO DAILY 90 days clotrimazole-betamethasone 1-0.05 % 1 appl topical DAILY denosumab (Prolia) 60 mg subcut [id number] famotidine 20 mg PO BEDTIME 90 days gabapentin 200 mg (2 x 100 mg) PO BEDTIME 30 days irbesartan 75 mg PO DAILY 90 days Tobacco use date assessed: 04/29/25 Fall risk assessment: No Falls in past year Last assessed Fall Risk: 04/29/25 Dental Screening Dental Screen Date: 01/26/25 Did you have a dental visit in the last 12 months?: Yes Did you have a dental problem in the last 6 months where you did not have access to dental care?: No Was dental information given to patient?: Patient has dentist HPI 3m follow up HPI Details - The patient is a 74-year-old female pr esenting for follow-up appointment - Rash with itching: The patient has had a rash with itching for two weeks. She has not used any treatment until now and is advised to use a steroid cream for relief. Lumbar pain: Patient has stopped taking gabapentin and is now only taking Tylenol for pain management and is requesting refill. The patient had back surgery at the L5-S1 level, with arthritis confirmed by imaging in November 2023. The patient has been receiving Prolia injections for osteoporosis management biannually. Blood pressure is well-controlled continue irbesartan Continue atorvastatin 20 mg for lipid control Allergies are stable at this time GERD is stable with famotidine Medications - Atorvastatin for hyperlipidemia - Cetirizine for allergic rhinitis - Famotidine for gastroesophageal reflux disease - Irbesartan for hypertension - Prolia for osteoporosis, administered every six months; two injections received to date Problem List - Osteoarthritis multiple joints - Chronic lower back pain status post L5 -S1 surgery - Hypertension - Osteoporosis - Hyperlipidemia - Allergic rhinitis - Gastroesophageal reflux disease (GERD) Patient Instructions - stop gabapentin continue Tylenol refil ls sent - Schedule lab work before next visit - hydrocortisone cream sent for the rash under the chin - continue all other medications Review of Systems General: No fever no chills neurological: No headaches no dizziness ear nose throat: No sore throat no hearing difficulty no ear pain cardiovascular: No syncope, no chest pain, no palpitations gastrointestinal: No nausea vomiting or diarrhea endocrine: No polyuria polydipsia no heat intolerance genitourinary: No dysuria skin: No new complaints Physical Exam general: No acute distress HEENT: No acute findings neck: Supple respiratory system: Able to talk in full sentences, no audible wheeze no stridor cardiovascular: S1-S2 gastrointestinal: Hip pain noted, especially when standing or walking extremities: No new findings 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 x3 motor sensory intact, tingling noted from back skin: Normal turgor PFSH Medical History TIA (transient ischemic attack) Back pain Elevated cholesterol HTN (hypertension) Cataract Hypoparathyroidism Vitamin D deficiency Osteoporosis Hyperparathyroidism Surgical History Hx of cataract surgery History of hysteroscopy H/O colonoscopy History of back surgery History of parathyroid surgery Hx of neck surgery Hx of removal of neck cyst Hx of section Family History Father Diabetes Hypertension Mother Diabetes Hypertension Family/Other Colon cancer Social History Household Members Other:: uncle Housing: Apartment Are you a primary health care sanitary technician to a significant other at home: No Do you presently have visiting nurse or other home services: No Alcohol intake: current Alcohol intake frequency: does not drink Patient Tobacco Use Status: Never used Tobacco e-Cigarette/Vaping Use: Never Used service: No Current occupational status: employed Cognitive needs: No Hearing needs: No Vision needs: Yes Questionnaire PHQ-9 Over the last 2 weeks, how often have you been bothered by any of the following problems? 1. Little interest or pleasure in doing things: not at all 2. Feeling down, depressed, or hopeless: not at all 3. Trouble falling or staying asleep, or sleeping too much: not at all 4. Feeling tired or having little energy: not at all 5. Poor appetite or overeating: not at all 6. Feeling bad about yourself - or that you are a failure or have let yourself or your family down: not at all 7. Trouble concentrating on things, such as reading the newspaper or watching television: not at all 8. Moving or speaking so slowly that other people could have noticed. Or the opposite - being so fidgety or restless that you have been moving around a lot more than usual: not at all 9. Thoughts that you would be better off or of hurting yourself in some way: not at all Total score: 0 Depression Screening Interpretation: Negative Depression Screening Done: Yes 50710 - PHQ-9 Billing: Yes Source: Developed by Drs. Doc Douglas, Di Villanueva, Marvin Thorne and colleagues, with an educational alfa from [employer]. Thrive Questionnaire Date Thrive assessed: 01/26/25 I am a: Patient What is your living situation today?: I have a steady place to live Within the past 12 months, did the food you bought not last and you didn't have the money to get more?: Often true Within the past 12 months, did you worry whether your food would run out before you got money to buy more?: Often true Do you have trouble paying for medicines?: No Do you have trouble getting transportation to medical appointments?: No Do you have trouble paying your heating and electricity bill?: No Do you have trouble taking care of your child, family member or friend?: No Do you have trouble with day-to-day activities such as bathing, preparing meals, shopping, managing finances, etc.?: No Are you currently unemployed and looking for a job?: No Are you interested in more education?: No Currently or been in a relationship where the following occur: I choose not to answer THRIVE Score: 2 AUDIT C Alcohol Use Questionnaire (AUDIT-C) 1. How often do you have a drink containing alcohol?: Never 3. How often do you have six or more drinks on one occasion?: Never Total Score: 0 PARI-7 AMB Questionnaire PARI-7 Date PARI - 7 assessed: 01/26/25 Feeling nervous, anxious, or on edge: 0 = Not at all Not being able to stop or control worryin = Not at all Worrying too much about different things: 0 = Not at all Trouble relaxin = Not at all Being so restless that it is hard to sit still: 0 = Not at all Becoming easily annoyed or irritable: 0 = Not at all Feeling afraid as if something awful might happen: 0 = Not at all Total PARI-7 score (0-4 normal; 5-9 mild; 10-14 moderate; 15-21 severe): 0 Source: Developed by Drs. Doc Douglas, Di Villanueva, Marvin Thorne and colleagues, with an educational alfa from [employer]. Physical exam (Primary Care) Vital Signs: Last Vital Signs Temp 97.3 F 04/29/25 09:01 Pulse 82 04/29/25 09:01 BP 108/70 04/29/25 09:01 Pulse Ox 99 04/29/25 09:01 Oxygen Delivery Method Room Air 04/29/25 09:01 BMI result Body Mass Index 24.4 Tobacco/Smoking Status: Tobacco use Status Tobacco use date assessed 04/29/25 04/29/25 09:04 Patient Tobacco Use Status Never used Tobacco 04/29/25 09:04 e-Cigarette/Vaping Use Never Used 04/29/25 09:04 PHQ-9: PHQ-9 Score PHQ-9: Total score 0 04/29/25 09:29 Depression Screening Interpretation: Negative Thrive Assessment: Date of Thrive Assessment Date Thrive assessed 01/26/25 04/29/25 09:04 Currently or been in a relationship where the following occur: I choose not to answer Coding Level of Care Code Est Pt Level 4 (50603) Complex EM visit Add On G2211 Diagnoses Hypertension, essential I10 Osteoporosis, unspecified osteoporosis type, unspecified pathological fracture presence M81.0 Osteoporosis type: unspecified Presence of current pathological fracture: unspecified Pre-diabetes R73.03 Vitamin D deficiency E55.9 Lipid disorder E78.9 Environmental allergies Z91.09 Additional Codes PHQ-9 - 55931 - PHQ-9 Billing: Yes ([id number]) Assessment & Plan Assessment & Plan (1) Hypertension, essential: Code(s): I10 - Essential (primary) hypertension Category: Medical (2) Osteoporosis: Code(s): M81.0 - Age-related osteoporosis without current pathological fracture Category: Medical Qualifiers: Osteoporosis type: unspecified Presence of current pathological fracture: unspecified Qualified Code(s): M81.0 - Age-related osteoporosis without current pathological fracture (3) Pre-diabetes: Code(s): R73.03 - Prediabetes Category: Medical (4) Vitamin D deficiency: Code(s): E55.9 - Vitamin D deficiency, unspecified Category: Medical (5) Lipid disorder: Code(s): E78.9 - Disorder of lipoprotein metabolism, unspecified Category: Medical (6) Environmental allergies: Code(s): Z91.09 - Other allergy status, other than to drugs and biological substances Category: Medical Plan - The patient is a 74-year-old female presenting for follow-up appointment, this is an ongoing care - Rash with itching: The patient has had a rash with itching for two weeks. She has not used any treatment until now and is advised to use a steroid cream for relief. Lumbar pain: Patient has stopped taking gabapentin and is now only taking Tylenol for pain management and is requesting refill. The patient had back surgery at the L5-S1 level, with arthritis confirmed by imaging in November 2023. The patient has been receiving Prolia injections for osteoporosis management biannually. Blood pressure is well-controlled continue irbesartan Continue atorvastatin 20 mg for lipid control Allergies are stable at this time GERD is stable with famotidine Medications - Atorvastatin for hyperlipidemia - Cetirizine for allergic rhinitis - Famotidine for gastroesophageal reflux disease - Irbesartan for hypertension - Prolia for osteoporosis, administered every six months; two injections received to date Problem List - Osteoarthritis multiple joints - Chronic lower back pain status post L5-S1 surgery - Hypertension - Osteoporosis - Hyperlipidemia - Allergic rhinitis - Gastroesophageal reflux disease (GERD) Patient Instructions - stop gabapentin continue Tylenol refills sent - Schedule lab work before next visit - hydrocortisone cream sent for the rash under the chin - continue all other medications Orders: Orders Comprehensive [place]. Panel Fast 3 Months E55.9 - Vitamin D deficiency, unspecified, E78.9 - Disorder of lipoprotein metabolism, unspecified, I10 - Essential (primary) hypertension, M81.0 - Age-related osteoporosis without current pathological fracture, R73.03 - Prediabetes, Z91.09 - Other allergy status, other than to drugs and biological substances Vitamin D 25-OH (D2 and D3) 3 Months E55.9 - Vitamin D deficiency, unspecified, E78.9 - Disorder of lipoprotein metabolism, unspecified, I10 - Essential (primary) hypertension, M81.0 - Age-related osteoporosis without current pathol ogical fracture, R73.03 - Prediabetes, Z91.09 - Other allergy status, other than to drugs and biological substances Vitamin B12 3 Months E55.9 - Vitamin D deficiency, unspecified, E78.9 - Disorder of lipoprotein metabolism, unspecified, I10 - Essential (primary) hypertension, M81.0 - Age-related osteoporosis without current pathological fracture, R73.03 - Prediabetes, Z91.09 - Other allergy status, other than to drugs and biological substances TSH reflex Free T4 3 Months E55.9 - Vitamin D deficiency, unspecified, E78.9 - Disorder of lipoprotein metabolism, unspecified, I10 - Essential (primary) hypertension, M81.0 - Age-related osteoporosis without current pathological fracture, R73.03 - Prediabetes, Z91.09 - Other allergy status, other than to drugs and biological substances Complete Blood Count Auto Diff 3 Months E55.9 - Vitamin D deficiency, unspecified, E78.9 - Disorder of lipoprotein metabolism, unspecified, I10 - Essential (primary) hypertension, M81.0 - Age-related osteoporosis without current pathological fracture, R73.03 - Prediabetes, Z91.09 - Other allergy status, other than to drugs and biological substances Lipid Panel 3 Months E55.9 - Vitamin D deficiency, unspecified, E78.9 - Disorder of lipoprotein metabolism, unspecified, I10 - Essential (primary) hypertension, M81.0 - Age-related osteoporosis without current pathological fracture, R73.03 - Prediabetes, Z91.09 - Other allergy status, other than to drugs and biological substances Medications: New hydrocortisone 2.5% 1 appl topical BID PRN 30 grams 0RF skin irritation 30 days Refilled aspirin 81 mg PO DAILY 90 tabs 3RF 90 days I10 - Essential (primary) hypertension clotrimazole-betamethasone 1-0.05 % 1 appl topical DAILY 45 grams 0RF famotidine 20 mg PO BEDTIME 90 tabs 0RF 90 days acetaminophen (Tylenol) 650 mg (2 x 325 mg) PO TID PRN 180 tabs 3RF pain 90 days M19.90 - Unspecified osteoarthritis, unspecified site atorvastatin 20 mg PO DAILY 90 tabs 3RF cetirizine 10 mg PO DAILY 90 tabs 3RF 90 days irbesartan 75 mg PO DAILY 90 tabs 0RF 90 days Discontinued gabapentin Discontinued Reason: Doctor's Order 200 mg (2 x 100 mg) PO BEDTIME 30 days 60 caps 0RF
--- OUTSIDE RECORDS SUMMARY | 2025-04-29 09:11 | XMS_ITS | Clinical Summary ---
Author Organization [employer] Address [address] [place] [address] [address] [place] [address] Care Team Providers Care Business Support Coordinator Name Role Phone Unavailable Primary Care Provider [...] - 2023-2 5 season) 2024 Influenza Vaccine (Season Ended) 2025 RSV Patients and Pa tients Aged 60 [...] patient's age to complete this topic Meningococcal B Vaccine Aged Out No l onger eligible based on patient's age to complete [...]
== END 2025-04-29 09:29 | disposition home or self-care (01) ==
LOC: HO.HMCC 08:56
PROVIDERS: PCP Internal Medicine; Visit Provider Internal Medicine
DX: I10 Essential (primary) hypertension (principal); M81.0 Age-related osteoporosis without current pathological fracture; R73.03 Prediabetes; E55.9 Vitamin D deficiency, unspecified; E78.9 Disorder of lipoprotein metabolism, unspecified; Z91.09 Other allergy status, other than to drugs and biological substances

== ENCOUNTER → 2025-04-29 08:55 | Outpatient (BNVA) | payer MEDICARE, SELFPAY | PROVIDERS: PCP Internal Medicine; Visit Provider Internal Medicine | DX: R21 Rash and other nonspecific skin eruption (principal); M54.50 Low back pain, unspecified; M81.0 Age-related osteoporosis without current pathological fracture; K21.9 Gastro-esophageal reflux disease without esophagitis; I10 Essential (primary) hypertension; R73.03 Prediabetes; E55.9 Vitamin D deficiency, unspecified; E78.9 Disorder of lipoprotein metabolism, unspecified; Z91.09 Other allergy status, other than to drugs and biological substances; Z79.899 Other long term (current) drug therapy | CPT/HCPCS: 96127; 99212 ==

== ENCOUNTER 2025-07-29 09:18 | Outpatient (AMB) | payer MEDICARE, SELFPAY ==
--- NOTE | 2025-07-29 09:20 | A.OFFPC_ITS ---
Vital Signs 07/29/25 09:22 Height 3 in Weight 138 lb BMI 35228.3 BP 112/70 Blood Pressure Location Rt brachial Position Sitting Pulse 73 Pulse Source Pulse Oximeter Pulse Oximetry (%) 96 Intake Visit Reasons: 6m follow up Allergies No Known Allergies Allergy (Verified 04/29/25 09:03) Medication List - Last Reconciled 07/29/25 by Moustapha Mariee MD acetaminophen (Tylenol) 650 mg (2 x 325 mg) PO TID PRN 90 days aspirin 81 mg PO DAILY 90 days atorvastatin 20 mg PO DAILY enetdsn-U0-hjyv-copper-bianca 325 mg-12.5 mcg -2.75 mg (Citracal-D3 Maximum Plus) 1 tab PO BID cetirizine 10 mg PO DAILY 90 days clotrimazole-betamethasone 1-0.05 % 1 appl topical DAILY denosumab (Prolia) 60 mg subcut [id number] famotidine 20 mg PO BEDTIME 90 days hydrocortisone 2.5% 1 appl topical BID PRN 30 days irbesartan 75 mg PO DAILY 90 days Tobacco use date assessed: 04/29/25 Fall risk assessment: No Falls in past year Last assessed Fall Risk: 07/29/25 Dental Screening Dental Screen Date: 01/26/25 HPI 6m follow up HPI Details - The patient is a 74-year-old female pr esenting for follow-up appointment offer no new complains today Lumbar pain: taking Tylenol for pain management . The patient had back surgery at the L5-S1 level, with arthritis confirmed by imaging in November 2023. The patient has been receiving Prolia injections for osteoporosis management biannually. Blood pressure is well-controlled continue irbesartan Continue atorvastatin 20 mg for lipid control Allergies are stable at this time GERD is stable with famotidine Health Maintenance: - A future physical examination was into mena scheduled for September but is recommended to be pushed to October to align with blood work scheduling. 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 and li stens to the Bible daily - Spends time with friends, occasionally shares meals - Visits family in [place] occasionally, n otably her daughter and grandson Problem List - Hypertension - Osteoporosis - Hyperlipidemia - Gastroesophageal reflux disease - Eczema Patient Instructions - Schedule and undergo a blood test befo re the rescheduled physical examination in October - Consider getting the flu vaccine from the pharmacy - Discuss the need for another COVID-19 vaccination, if desired - continue meds - refills sent Review of Systems General: No fever no chills neurological: No headaches no dizziness ear nose throat: No sore throat no hearing difficulty no ear pain cardiovascular: No syncope, no chest pain, no palpitations gastrointestinal: No nausea vomiting or diarrhea endocrine: No polyuria polydipsia no heat intolerance genitourinary: No dysuria skin: No new complaints Physical Exam general: No acute distress HEENT: No acute findings neck: Supple respiratory system: Able to talk in full sentences, no audible wheeze, no stridor cardiovascular: S1-S2 RRR gastrointestinal: No pain extremities: No new findings DATE NIGHT SITTER: Alert, awake, oriented x3, motor intact skin: Normal turgor PFSH Medical History TIA (transient ischemic attack) Back pain Elevated cholesterol HTN (hypertension) Cataract Hypoparathyroidism Vitamin D deficiency Osteoporosis Hyperparathyroidism Surgical History Hx of cataract surgery History of hysteroscopy H/O colonoscopy History of back surgery History of parathyroid surgery Hx of neck surgery Hx of removal of neck cyst Hx of section Family History Father Diabetes Hypertension Mother Diabetes Hypertension Family/Other Colon cancer Social History Household Members Other:: uncle Housing: Apartment Are you a primary urgent care technician to a significant other at home: No Do you presently have visiting nurse or other home services: No Alcohol intake: current Alcohol intake frequency: does not drink Patient Tobacco Use Status: Never used Tobacco e-Cigarette/Vaping Use: Never Used service: No Current occupational status: employed Cognitive needs: No Hearing needs: No Vision needs: Yes Questionnaire PHQ-9 Over the last 2 weeks, how often have you been bothered by any of the following problems? 1. Little interest or pleasure in doing things: not at all 2. Feeling down, depressed, or hopeless: not at all 3. Trouble falling or staying asleep, or sleeping too much: not at all 4. Feeling tired or having little energy: not at all 5. Poor appetite or overeating: not at all 6. Feeling bad about yourself - or that you are a failure or have let yourself or your family down: not at all 7. Trouble concentrating on things, such as reading the newspaper or watching television: not at all 8. Moving or speaking so slowly that other people could have noticed. Or the opp osite - being so fidgety or restless that you have been moving around a lot more than usual: not at all 9. Thoughts that you would be better off or of hurting yourself in some way: not at all Total score: 0 Depression Screening Interpretation: Negative Depression Screening Done: Yes 73357 - PHQ-9 Billing: Yes Source: Developed by Drs. Doc Douglas, Di Villanueva, Marvin Thorne and colleagues, with an educational alfa from [employer]. Thrive Questionnaire Date Thrive assessed: 01/26/25 I am a: Patient What is your living situation today?: I have a steady place to live Within the past 12 months, did the food you bought not last and you didn't have the money to get more?: Often true Within the past 12 months, did you worry whether your food would run out before you got money to buy more?: Often true Do you have trouble paying for medicines?: No Do you have trouble getting transportation to medical appointments?: No Do you have trouble paying your heating and electricity bill?: No Do you have trouble taking care of your child, family member or friend?: No Do you have trouble with day-to-day activities such as bathing, preparing meals, shopping, managing finances, etc.?: No Are you currently unemployed and looking for a job?: No Are you interested in more education?: No Currently or been in a relationship where the following occur: I choose not to answer THRIVE Score: 2 AUDIT C Alcohol Use Questionnaire (AUDIT-C) 1. How often do you have a drink containing alcohol?: Never 3. How often do you have six or more drinks on one occasion?: Never Total Score: 0 PARI-7 AMB Questionnaire PARI-7 Date PARI - 7 assessed: 01/26/25 Feeling nervous, anxious, or on edge: 0 = Not at all Not being able to stop or control worryin = Not at all Worrying too much about different things: 0 = Not at all Trouble relaxin = Not at all Being so restless that it is hard to sit still: 0 = Not at all Becoming easily annoyed or irritable: 0 = Not at all Feeling afraid as if something awful might happen: 0 = Not at all Total PARI-7 score (0-4 normal; 5-9 mild; 10-14 moderate; 15-21 severe): 0 Source: Developed by Drs. Doc Douglas, Di Villanueva, Marvin Thorne and colleagues, with an educational alfa from [employer]. PARI-7 Assessment Billing PARI-7 Assessment Tool: PARI-7 Assessment 47848 Physical exam (Primary Care) Vital Signs: Last Vital Signs Pulse 73 07/29/25 09:22 BP 112/70 07/29/25 09:22 Pulse Ox 96 07/29/25 09:22 BMI result Body Mass Index 26552.3 Tobacco/Smoking Status: Tobacco use Status Tobacco use date assessed 04/29/25 07/29/25 09:25 Patient Tobacco Use Status Never used Tobacco 07/29/25 09:25 e-Cigarette/Vaping Use Never Used 07/29/25 09:25 PHQ-9: PHQ-9 Score PHQ-9: Total score 0 07/29/25 09:44 Depression Screening Interpretation: Negative Thrive Assessment: Date of Thrive Assessment Date Thrive assessed 01/26/25 07/29/25 09:25 Currently or been in a relationship where the following occur: I choose not to answer Coding Level of Care Code Est Pt Level 4 (11270) Complex EM visit Add On G2211 Diagnoses Hypertension, essential I10 Lipid disorder E78.9 Environmental allergies Z91.09 Pre-diabetes R73.03 Osteoporosis, unspecified osteoporosis type, unspecified pathological fracture presence M81.0 Osteoporosis type: unspecified Presence of current pathological fracture: unspecified Vitamin D deficiency E55.9 Additional Codes PHQ-9 - 73855 - PHQ-9 Billing: Yes ([id number]) PARI-7 Assessment Billing - PARI-7 Assessment Tool: PARI-7 Assessment 20734 ([id number]) Assessment & Plan Assessment & Plan (1) Hypertension, essential: Code(s): I10 - Essential (primary) hypertension Category: Medical (2) Lipid disorder: Code(s): E78.9 - Disorder of lipoprotein metabolism, unspecified Category: Medical (3) Environmental allergies: Code(s): Z91.09 - Other allergy status, other than to drugs and biological substances Category: Medical (4) Pre-diabetes: Code(s): R73.03 - Prediabetes Category: Medical (5) Osteoporosis: Code(s): M81.0 - Age-related osteoporosis without current pathological fracture Category: Medical Qualifiers: Osteoporosis type: unspecified Presence of current pathological fracture: unspecified Qualified Code(s): M81.0 - Age-related osteoporosis without current pathological fracture (6) Vitamin D deficiency: Code(s): E55.9 - Vitamin D deficiency, unspecified Category: Medical Plan - The patient is a 74-year-old female presenting for follow-up appointment offer no new complains today Lumbar pain: taking Tylenol for pain management . The patient had back surgery at the L5-S1 level, with arthritis confirmed by imaging in November 2023. The patient has been receiving Prolia injections for osteoporosis management biannually. Blood pressure is well-controlled continue irbesartan Continue atorvastatin 20 mg for lipid control Allergies are stable at this time GERD is stable with famotidine Health Maintenance: - A future physical examination was initially scheduled for September but is recommended to be pushed to October to align with blood work scheduling. 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 and listens to the Bible daily - Spends time with friends, occasionally shares meals - Visits family in [place] occasionally, notably her daughter and grandson Problem List - Hypertension - Osteoporosis - Hyperlipidemia - Gastroesophageal reflux disease - Eczema Patient Instructions - Schedule and undergo a blood test before the rescheduled physical examination in October - Consider getting the flu vaccine from the pharmacy - Discuss the need for another COVID-19 vaccination, if desired - continue meds - refills sent Orders: Orders Complete Blood Count Auto Diff 2 Months E55.9 - Vitamin D deficiency, unspeci fied, E78.9 - Disorder of lipoprotein metabolism, unspecified, I10 - Essential (primary) hypertension, M81.0 - Age-related osteoporosis without current pathological fracture, R73.03 - Prediabetes, Z91.09 - Other allergy status, other than to drugs and biological substances Comprehensive [place]. Panel Fast 07/29/25 E55.9 - Vitamin D deficiency, unspecified, E78.9 - Disorder of lipoprotein metabolism, unspecified, I10 - Essential (primary) hypertension, M81.0 - Age-related osteoporosis without current pathological fracture, R73.03 - Prediabetes, Z91.09 - Other allergy st atus, other than to drugs and biological substances Lipid Panel 2 Months E55.9 - Vitamin D deficiency, unspecified, E78.9 - Disorder of lipoprotein metabolism, unspecified, I10 - Essential (primary) hypertension, M81.0 - Age-related osteoporosis without current pathological fracture, R73.03 - Prediabetes, Z91.09 - Other allergy status, other than to drugs and biological substances Vitamin D 25-OH (D2 and D3) 07/29/25 E55.9 - Vitamin D deficiency, unspecified, E78.9 - Disorder of lipoprotein metabolism, unspecified, I10 - Essential (primary) hypertension, M81.0 - Age-related osteoporosis without current pathological fracture, R73.03 - Prediabetes, Z91.09 - Other allergy status, other than to drugs and biological substances TSH reflex Free T4 2 Months E55.9 - Vitamin D deficiency, unspecified, E78.9 - Disorder of lipoprotein metabolism, unspecified, I10 - Essential (primary) hypertension, M81.0 - Age-related osteoporosis without current pathological fracture, R73.03 - Prediabetes, Z91.09 - Other allergy status, other than to drugs and biological substances Medications: Refilled famotidine 20 mg PO BEDTIME 90 tabs 0RF 90 days irbesartan 75 mg PO DAILY 90 tabs 0RF 90 days clotrimazole-betamethasone 1-0.05 % 1 appl topical DAILY 45 grams 0RF
[2025-07-29 09:22] VITALS: BP 112/70; PULSE 73; O2SAT 96; BMI 10779.3
--- OUTSIDE RECORDS SUMMARY | 2025-07-29 10:07 | XMS_ITS | Patient Health Record ---
Author Organization [facility] Address [address] [place] [id number] Care Team Providers Care Ent Consultant Name Role Phone Fab Garcia Jr Reason For Referral No Information Plan Of Treatment No Information
--- OUTSIDE RECORDS SUMMARY | 2025-07-29 10:07 | XMS_ITS | Patient Health Record ---
Author Organization [facility] [address] Address [address] [place] [address] Care Team Providers Care Supervisor Extruding Department Name Role Phone MONICA SOLIS Unavailable [phone] Allergies No Known Allergies Reason For Referral No Information Plan Of Treatment No Information Insurance Providers Payer Name Payer Address Payer Phone Subscriber Number Group Number Insured Name Patient Relationship to Insured Coverage Start Date Coverage End Date JEAN PIERRE [id number] DoNotUse [address] [address] [place] [address] [id number] Ari Morgan Self - patient is the insured MEDICARE TRADIONAL PPO [address] [place] [phone] [id number] Ari Morgan Self - patient is the insured
--- OUTSIDE RECORDS SUMMARY | 2025-07-29 10:07 | XMS_ITS | Clinical Summary ---
Author Organization [employer] Address [address] [place] [address] [address] [place] [address] Care Team Providers Care Bank Vault Attendant Name Role Phone Unavailable Primary Care Provider [...] COVID-19 Vaccine ( - 2023-2 5 season) 2025 Influenza Vaccine (#1) 2025 RSV Patients and Pa tients Aged [...]
--- OUTSIDE RECORDS SUMMARY | 2025-07-29 10:07 | XMS_ITS | Encounter Summary ---
Author Organization [employer] Address [address] [facility] 7t [place] [address] Care Team Providers Care Head Boys Golf Coach Name Role Phone Unavailable Primary Care Provider Unavailabl e Encounter Details Date Type Department Care Team (Latest Contact Info) Description 06/02/2019 Abstract [facility] CONVERSIONS Dental, Provider, DDS Social [...]
== END 2025-07-29 09:57 | disposition home or self-care (01) ==
LOC: HO.HMCC 09:18
PROVIDERS: PCP Internal Medicine; Visit Provider Internal Medicine
DX: I10 Essential (primary) hypertension (principal); E78.9 Disorder of lipoprotein metabolism, unspecified; Z91.09 Other allergy status, other than to drugs and biological substances; R73.03 Prediabetes; M81.0 Age-related osteoporosis without current pathological fracture; E55.9 Vitamin D deficiency, unspecified

== ENCOUNTER → 2025-07-29 09:18 | Outpatient (BNVA) | payer MEDICARE, SELFPAY | PROVIDERS: PCP Internal Medicine; Visit Provider Internal Medicine | DX: M81.0 Age-related osteoporosis without current pathological fracture (principal); M54.50 Low back pain, unspecified; I10 Essential (primary) hypertension; K21.9 Gastro-esophageal reflux disease without esophagitis; E78.9 Disorder of lipoprotein metabolism, unspecified; R73.03 Prediabetes; E55.9 Vitamin D deficiency, unspecified; Z91.09 Other allergy status, other than to drugs and biological substances | CPT/HCPCS: 96127; 99212 ==

== ENCOUNTER 2025-08-30 09:46 | Outpatient (REF) | payer MEDICARE, SELFPAY ==
[2025-08-30 09:58] LABS: MANUAL DIFF FLAG NO
[2025-08-30 10:18] LABS: Hematocrit 40.6 % (37.0-47.0); Hemoglobin 13.1 g/dl (12.0-16.0); Imm Gran Abs Auto 0.02 X10*3/uL (0.00-0.03); Imm Gran Pct Auto 0.3 % (0.0-0.4); Lymphocytes Absolute Auto 2.1 X10*3/uL (1.2-4.9); Mean Corpuscular HGB Conc 32.3 g/dl (31.0-35.0); Mean Corpuscular Hemoglobin 29.9 pg (27.0-33.0); Mean Corpuscular Volume 92.7 fL (80.0-98.0); NRBC Abs Auto 0.000 X10*3/uL (0.0-0.012); NRBC Pct Auto 0.0 /100WBC (0.0-0.2); Platelet Count 278 X10*3/uL (160-400); Red Blood Count 4.38 X10*6/uL (4.20-5.50); White Blood Count 6.0 X10*3/uL (4.8-10.8)
[2025-08-30 10:54] LABS: Alanine Aminotransferase 33 U/L (0-31); Albumin Level 4.8 g/dL (3.5-5.0); Alkaline Phosphatase 51 U/L (39-117); Anion Gap 12 (12-20); Aspartate Amino Transferase 37 U/L (5-31); Blood Urea Nitrogen 12 mg/dL (9-16); Calcium 8.3 mg/dL (8.4-10.2); Carbon Dioxide 31 mmol/L (22-29); Chloride 107 mmol/L (96-108); Cholesterol 165 mg/dL (<200); Estimated Glomerular Filt Rate > 60; HDL Cholesterol 48 mg/dL (>40); Potassium 4.5 mmol/L (3.3-5.1); Sodium 145 mmol/L (135-145); Total Protein 7.5 g/dL (6.5-8.0); Triglycerides 129 mg/dL (<150)
[2025-08-30 11:15] LABS: Vitamin B12 466 pg/mL (200-900)
--- OUTSIDE RECORDS SUMMARY | 2025-08-30 11:28 | XMS_ITS | Patient Health Record ---
Author Organization [facility] Address [address] [place] [id number] Care Team Providers Care Tanker Serviceman Name Role Phone Fab Garcia Jr [phone] Reason For Referral No Information Plan Of Treatment No Information
--- OUTSIDE RECORDS SUMMARY | 2025-08-30 11:28 | XMS_ITS | Clinical Summary ---
Author Organization [employer] Address [address] [place] [address] [address] [place] [address] Care Team Providers Care Regional Medical Director Name Role Phone Unavailable Primary Care Provider [...]
--- OUTSIDE RECORDS SUMMARY | 2025-08-30 11:28 | XMS_ITS | Encounter Summary ---
Author Organization [employer] Address [address] [facility] 7t [place] [address] Care Team Providers Care Distribution Sales Manager Name Role Phone Unavailable Primary Care Provider Unavailabl e Encounter Details Date Type Department Care Team (Latest Contact Info) Description 06/02/2019 Abstract [facility] CONVERSIONS Dental, Provider, DDS Social History [...]
--- OUTSIDE RECORDS SUMMARY | 2025-08-30 11:29 | XMS_ITS | Patient Health Record ---
Author Organization [facility] [address] Address [address] [place] [address] Care Team Providers Care Meat Packager Name Role Phone MONICA SOLIS Unavailable [phone] Allergies No Known Allergies Reason For Referral No Information Plan Of Treatment No Information Insurance Providers Payer Name Payer Address Payer Phone Subscriber Number Group Number Insured Name Patient Relationship to Insured Coverage Start Date Coverage End Date JEAN PIERRE [id number] DoNotUse [address] [address] [place] [address] [id number] Ari Morgan Self - patient is the insured MEDICARE TRADIONAL PPO [address] [place] [phone] [id number] Ari Morgan Self - patient is the insured
[2025-09-04 05:18] LABS: Vitamin D 25-OH, D2 <4 ng/mL; Vitamin D 25-OH, D3 45 ng/mL; Vitamin D 25-OH, Total 45 ng/mL (30-100)
== END 2025-08-30 09:47 | disposition home or self-care (01) ==
LOC: HO.LAB 09:46
PROVIDERS: PCP Internal Medicine; Visit Provider Internal Medicine Endocrinology, Diabetes & Metabolism
DX: I10 Essential (primary) hypertension (principal); M81.0 Age-related osteoporosis without current pathological fracture; E78.9 Disorder of lipoprotein metabolism, unspecified; Z91.09 Other allergy status, other than to drugs and biological substances; R73.03 Prediabetes; E55.9 Vitamin D deficiency, unspecified
CPT/HCPCS: 36415; 80053; 80061; 82306; 82607; 84443; 85025

== ENCOUNTER 2025-09-08 09:00 | Outpatient (REF) | payer MEDICARE, SELFPAY ==
--- OUTSIDE RECORDS SUMMARY | 2025-09-08 09:42 | XMS_ITS | Clinical Summary ---
Author Organization [employer] Address [address] [place] [address] [address] [place] [address] Care Team Providers Care Stores Despatch Hand Name Role Phone Unavailable Primary Care Provider [...]
--- OUTSIDE RECORDS SUMMARY | 2025-09-08 09:42 | XMS_ITS | Patient Health Record ---
Author Organization [facility] Address [address] [place] [phone] Care Team Providers Care Monitor Worker Name Role Phone Fab Garcia Jr Reason For Referral No Information Plan Of Treatment No Information
--- OUTSIDE RECORDS SUMMARY | 2025-09-08 09:42 | XMS_ITS | Patient Health Record ---
Author Organization [facility] [address] Address [address] [place] [address] Care Team Providers Care Brainer Name Role Phone MONICA SOLIS Unavailable [phone] Allergies No Known Allergies Reason For Referral No Information Plan Of Treatment No Information Insurance Providers Payer Name Payer Address Payer Phone Subscriber Number Group Number Insured Name Patient Relationship to Insured Coverage Start Date Coverage End Date JEAN PIERRE [id number] DoNotUse [address] [address] [place] [address] [id number] Ari Morgan Self - patient is the insured MEDICARE TRADIONAL PPO [address] [place] [phone] [id number] Ari Morgan Self - patient is the insured
--- OUTSIDE RECORDS SUMMARY | 2025-09-08 09:42 | XMS_ITS | Encounter Summary ---
Author Organization [employer] Address [address] [facility] [address] [place] [address] Care Team Providers Care School Age Lead Teacher Name Role Phone Unavailable Primary Care Provider Unavailabl e Encounter Details Date Type Department Care Team (Latest Contact Info) Description 06/02/2019 Abstract [facility] CONVERSIONS Dental, Provider, DDS Social History [...]
[2025-09-08 10:18] LABS: Calcium 8.5 mg/dL (8.4-10.2)
== END 2025-09-08 09:01 | disposition home or self-care (01) ==
LOC: HO.LAB 09:00
PROVIDERS: PCP Internal Medicine; Visit Provider Internal Medicine Endocrinology, Diabetes & Metabolism
DX: Z01.419 Encounter for gynecological examination (general) (routine) without abnormal findings (principal); M81.0 Age-related osteoporosis without current pathological fracture
CPT/HCPCS: 36415; 82310; 82330; 99397

== ENCOUNTER 2025-09-08 09:13 | Outpatient (AMB) | payer MEDICARE, SELFPAY ==
--- NOTE | 2025-09-08 10:17 | A.OFFVIS_ITS ---
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 Intake Note: here for backfiller annual Filleter Required: No Filleter Services: Filleter Offered & Declined Information Interpreted: non-clinical & clinical (Hyacinth) Data Governance Consultant: Data Governance Consultant Present (Hyacinth) Accompanied by: Significant Other Allergies No Known Allergies Allergy (Verified 09/08/25 10:21) Medication List - Last Reconciled 09/08/25 by Regi Thakkar LPN acetaminophen (Tylenol) 650 mg (2 x 325 mg) PO TID PRN 90 days aspirin 81 mg PO DAILY 90 days atorvastatin 20 mg PO DAILY [id number] 325 mg-12.5 mcg -2.75 mg (Citracal-D3 Maximum Plus) 1 tab PO BID cetirizine 10 mg PO DAILY 90 days clotrimazole-betamethasone 1-0.05 % 1 appl topical DAILY denosumab (Prolia) 60 mg subcut [id number] famotidine 20 mg PO BEDTIME 90 days hydrocortisone 2.5% 1 appl topical BID PRN 30 days irbesartan 75 mg PO DAILY 90 days Do you need a note to return to daycare/school/sports/work: No HPI Comments Details: Patient is a postmenopausal woman presenting for her annual backfiller examination. 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 Currently not sexually active. Denies any vaginal dryness or irritation. Attempting to eat a healthy diet with calcium and vitamin D and stays active with exercise. Last pap smear; 2020, negative. Last mammogram; October 2024. Plans [employer]. Family history of colon cancer. ON LICENSE OF [facility] Medical History TIA (transient ischemic attack) Back pain Elevated cholesterol HTN (hypertension) Cataract Hypoparathyroidism Vitamin D deficiency Osteoporosis Hyperparathyroidism Surgical History Hx of cataract surgery History of hysteroscopy H/O colonoscopy History of back surgery History of parathyroid surgery Hx of neck surgery Hx of removal of neck cyst Hx of section Family History Father Diabetes Hypertension Mother Diabetes Hypertension Family/Other Colon cancer Social History Household Members Other:: uncle Housing: Apartment Are you a primary animal caretaker supervisor to a significant other at home: No Do you presently have visiting nurse or other home services: No Alcohol intake: current Alcohol intake frequency: does not drink Patient Tobacco Use Status: Never used Tobacco e-Cigarette/Vaping Use: Never Used service: No Current occupational status: employed Cognitive needs: No Hearing needs: No Vision needs: Yes Female Reproductive History Menstrual Age of Menarche: 17 Total pregnancies: 3 Number of Living Children: 3 Date of last pap smear: 03/13/21 History of abnormal pap smear: No Date of Mammogram: 10/08/24 Review of Systems Const All systems reviewed & are unremarkable except as noted in HPI and below Reports as per HPI Eyes Reports no additional complaints ENT Reports no additional complaints Card Reports no additional complaints Resp Reports no additional complaints GI Reports as per HPI and Reports no additional complaints Reports as per HPI Musc Reports no additional complaints Skin/Breast Reports as per HPI Neuro Reports no additional complaints Psych Reports no additional complaints Endo Reports no additional complaints Aakash/Lymph Reports no additional complaints Aller/Immun Reports no additional complaints Physical Exam Vital Signs: Last Vital Signs BP 110/70 09/08/25 10:24 BMI result Body Mass Index 23.9 Const General: cooperative, healthy appearing, no acute distress, well developed and alert Orientation/consciousness: patient oriented x3 HEENT Head: Yes normal to inspection Eyes General: appearance normal, both eyes and all related structures Neck Neck: Yes normal visual inspection Thyroid: Thyroid normal Chest Chest palpation & inspection: normal inspection of the chest and other (no puckering, dimpling, peau de orange, retraction, discharge, masses) Breast/axilla inspection: normal inspection of the breasts Breast/axilla palpation: normal palpation of the breasts Resp Effort & Inspection: normal respiratory effort GI Inspection: Yes normal to inspection Palpation (GI): Soft to palpation Rectal Exam - Female: deferred General: Yes bladder normal to palpation External Female Exam: normal external appearance and normal appearance of the u rethra Speculum Exam - Vagina: normal appearance of the vagina, normal palpation, normal vaginal discharge and vagina atrophic Speculum Exam - Cervix: normal appearance of the cervix and normal palpation Bimanual exam- vagina & uterus: normal bimanual exam, normal palpation, uterine size normal, bladder normal to palpation, normal palpation and non-tender Bimanual Exam- Adnexa, other: no masses Skin General skin exam: no rashes or lesions noted Rashes: no rashes Neuro General: patient oriented x3 Cognition (Neuro): normal cognition Extrem General: Yes normal to inspection Psych Attitude: cooperative Thought process: Normal thought process present Assessment & Plan Assessment & Plan (1) Encounter for annual routine gynecological examination: Code(s): Z01.419 - Encounter for gynecological examination (general) (routine) without abnormal findings Category: Medical Plan Discussed: Current recommendations for pap smears per ASCCP guidelines. Breast awareness, periodic self breast exams and yearly mammogram. Maintain a healthy lifestyle, well balanced diet including Calcium 1,200 mg and Vitamin D 600 IU daily, and routine exercise. Contact the office with any postmenopausal bleeding. Patient verbalizes understanding and agrees to the plan of care. She was given opportunity to ask questions and all questions were answered to the best of my ability. RTO in 1 year for annual backfiller exam. This note is constructed using voice recognition software. While every effort has been made to ensure accuracy, accounting instructor errors may have been included. Coding Level of Care Code Est Pt Prev Care >65y(79843) Diagnoses Encounter for annual routine gynecological examination Z01.419
[2025-09-08 10:24] VITALS: BP 110/70; BMI 23.9
== END 2025-09-08 11:10 | disposition home or self-care (01) ==
LOC: HO.HWS 09:13
PROVIDERS: PCP Internal Medicine; Visit Provider Advanced Practice Midwife
DX: Z01.419 Encounter for gynecological examination (general) (routine) without abnormal findings (principal)
CPT/HCPCS: 99397; 99459

== ENCOUNTER 2025-09-14 08:22 | Outpatient (AMB) | payer MEDICARE, SELFPAY ==
--- NOTE | 2025-09-14 08:28 | MHC.OFFVIS ---
Vital Signs 09/14/25 08:29 Height 5 ft 3.5 in Weight 141 lb 1.533 oz BMI 24.6 BP 124/70 Blood Pressure Location Lt brachial Position Sitting Pulse 76 Pulse Source Pulse Oximeter Pulse Oximetry (%) 96 Oxygen Delivery Method Room Air Intake Visit Reasons: Osteoporosis/prolia injection Intake Note: Patient present today for Osteoporosis and Prolia Injection. Peanut Salter Required: No Accompanied by: Self / Same As Patient Allergies No Known Allergies Allergy (Verified 09/14/25 08:36) HPI Comments Details: 74 YO Female with PMHx HTN, HLD and recent TIA is seen in F/U for Osteoporosis and Hyperparathyroidism. She is S/P a subtotal parathyroidectomy 09/12/2020. She was first made aware of the diagnosis of Osteoporosis in 2019, but review of her records reveal that this was first diagnosed on DXA in 2013. She has Osteoporosis of the hip and Forearm, and Osteopenia of the spine. Her Osteoporosis of the hip is severe, with a T score of -4.4 of the LFN and -4.0 of the L total hip. This has declined 24.6% from 2013. Labs do reveal mild hypercalcemia in the past. After her initial visit we completed workup for hyperparathyroidism, and she does appear to have a mild degree of hyperparathyroidism. Calcium is high normal, higher than expected for her age, with PTH inappropriately normal. Bone deminieralization is consistent with the pattern expected with hyperparathyroidism. She was referred to Dr. Ahn and underwent Sestamibi and 4D CT scan. This revealed no obvious adenoma within the neck, but there was concern for a large mediastinal parathyroid near the tracheal bifurcation. She was subsequently referred to CT Surgeon Dr. Lisa Boyle, and underwent CT surgery to excise this gland. Unfortunately this was a reactive lymph node, and not a parathyroid adenoma. She then underwent exploratory neck surgery with Dr. Ahn 09/12/2020 which revealed 4 gland parathyroid hyperplasia. She had a subtotal parathyroidectomy with just a remnant of the L superior gland remaining. Intraoperative PTH declined from 59-14, indicating cure. 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 She has since been tapered off of this. She does remain on Citracal 1 tab PO BID. She does report cramping in her hands and legs, but denies any paresthesias. She has never been treated for her Osteoporosis. UTD on dental cleanings and sees dentist every 6 months. No planned upcoming dental work or extractions. DXA dated: 06/19/2021 FINDINGS: AP SPINE L1-L3 (excluding L4): The data of L1-L4 has been changed to exclude the L4 vertebral body, because hardware at this level may cause overestimation of lumbar spine density. Current: BMD 0.942 g/cm2, Z-score -0.2, T-score -1.9, osteopenia, 1.0% increase from previous, 12.2% decrease from baseline (<5% change is not significant). Prior: BMD 0.933 g/cm2. Baseline: BMD 1.073 g/cm2. LEFT FEMUR, NECK: Current: BMD 0.597 g/cm2, Z-score -1.5, T-score -3.2, osteoporosis. Prior: BMD 0.432 g/cm2. Baseline: BMD 0.745 g/cm2. LEFT FEMUR, TOTAL: Current: BMD 0.659 g/cm2, Z-score -1.3, T-score -2.8, osteoporosis, 29.5% increase from previous, 22.5% decrease from baseline (<5% change is not significant). Prior: BMD 0.509 g/cm2. Baseline: BMD 0.850 g/cm2. Labs: Laboratory Tests 10/18/21 10/17/22 10/17/22 09:36 07:45 07:45 Estimated GFR > 60 Calcium 8.9 Albumin 4.4 4.5 25-OH Vitamin D Total 40.3 46.5 PTH Intact 30 Calcium (PTH Intact) 8.5 L Taking calcium and vitamin D. No fractures since last visit . Was on Prolia since 03/2024 The patient is a 74-year-old female presenting with hypocalcemia prior to planned Deosumab (Prolia) administration. The patient has had a parathyroidectomy with past evaluations confirming normal results. She reports no recent fractures and has been taking calcium and vitamin D supplements consistently. Lab results from two weeks ago demonstrated a calcium level of 8.3 mg/dL, which is on the lower side of normal. The patient is asymptomatic concerning hypocalcemia and repeat calcium was normal. She is here for Prolia injection today - [facility] Medical History TIA (transient ischemic attack) Back pain Elevated cholesterol HTN (hypertension) Cataract Hypoparathyroidism Vitamin D deficiency Osteoporosis Hyperparathyroidism Surgical History Hx of cataract surgery History of hysteroscopy H/O colonoscopy History of back surgery History of parathyroid surgery Hx of neck surgery Hx of removal of neck cyst Hx of section Family History Father Diabetes Hypertension Mother Diabetes Hypertension Family/Other Colon cancer Social History Household Members Other:: uncle Housing: Apartment Are you a primary child care attendant school to a significant other at home: No Do you presently have visiting nurse or other home services: No Alcohol intake: current Alcohol intake frequency: does not drink Patient Tobacco Use Status: Never used Tobacco e-Cigarette/Vaping Use: Never Used service: No Current occupational status: employed Cognitive needs: No Hearing needs: No Vision needs: Yes Female Reproductive History Menstrual Age of Menarche: 17 Physical Exam Vital Signs: Last Vital Signs Pulse 76 09/14/25 08:29 BP 124/70 09/14/25 08:29 Pulse Ox 96 09/14/25 08:29 Oxygen Delivery Method Room Air 09/14/25 08:29 BMI result Body Mass Index 24.6 Office Meds Prolia 60 mg/mL subcutaneous syringe Performing Provider: Doc Ayala MD Performing Location: [facility] Endocrinology Administered by: Svitlana Russell RN on 09/14/25 08:44 Dose Route Admin Location Dispensed Lot Number Expiration Date [facility] General [employer] Associate 60 mg subcut left upper arm 1 mL [id number] 11/02/27 13154-207-46 [employer] Total Dispensed Waste 1 mL 0 % Comments: Patient tolerated injection well. Patient denies any adverse reactions with previous injections. Repeat calcium completed by patient and reviewed by Dr. Ayala who advised okay to proceed with prolia injection. Assessment & Plan Assessment & Plan (1) Osteoporosis: Code(s): M81.0 - Age-related osteoporosis without current pathological fracture Category: Medical Qualifiers: Osteoporosis type: unspecified Presence of current pathological fracture: unspecified Qualified Code(s): M81.0 - Age-related osteoporosis without current pathological fracture Plan: This 72-year-old female with a history of osteoporosis and primary hyperparathyroid who underwent exploratory neck surgery with Dr. Ahn 09/12/2020 which revealed 4 gland parathyroid hyperplasia. She had a subtotal parathyroidectomy with just a remnant of the L superior gland remaining. Intraoperative PTH declined from 59-14, indicating cure. She has residual osteoporosis on DEXA Other secondary workup for osteoporosis was negative. About to receive Prolia injection today b The plan is to check calcium, albumin 7 days after Prolia injection to ensure no hypocalcemia. We will recheck DEXA bone density in 5 months' time and have patient return in 6 months Orders: Orders Albumin Level 7 Days M81.0 - Age-related osteoporosis without current pathological fracture AMB Denosumab Injection Practice Supplied Today M81.0 - Age-related osteoporosis without current pathological fracture XR DEXA axial skeleton 5 Months M81.0 - Age-related osteoporosis without current pathological fracture Calcium 7 Days M81.0 - Age-related osteoporosis without current pathological fracture Coding Level of Care Code Est Pt Level 3 (89532) Diagnoses Osteoporosis, unspecified osteoporosis type, unspecified pathological fracture presence M81.0 Osteoporosis type: unspecified Presence of current pathological fracture: unspecified
[2025-09-14 08:29] VITALS: BP 124/70; PULSE 76; O2SAT 96; BMI 24.6
--- OUTSIDE RECORDS SUMMARY | 2025-09-14 08:32 | XMS_ITS | Clinical Summary ---
Author Organization [employer] Address [address] [place] [address] [address]t [place] [address] Care Team Providers Care Repairer Name Role Phone Unavailable Primary Care Provider [...]
--- OUTSIDE RECORDS SUMMARY | 2025-09-14 08:32 | XMS_ITS | Patient Health Record ---
Author Organization [facility] [address] Address [address] [place] [address] Care Team Providers Care Inspector Handbag Frames Name Role Phone MONICA SOLIS Unavailable [phone] Allergies No Known Allergies Reason For Referral No Information Plan Of Treatment No Information Insurance Providers Payer Name Payer Address Payer Phone Subscriber Number Group Number Insured Name Patient Relationship to Insured Coverage Start Date Coverage End Date JEAN PIERRE [id number] DoNotUse [address] [address] [place] [address] [id number] Ari Morgan Self - patient is the insured MEDICARE TRADIONAL PPO [address] [place] [phone] [id number] Ari Morgan Self - patient is the insured
--- OUTSIDE RECORDS SUMMARY | 2025-09-14 08:32 | XMS_ITS | Encounter Summary ---
Author Organization [employer] Address [address]t [place] [address] Care Team Providers Care Funeral Director Name Role Phone Unavailable Primary Care Provider Unavailabl e Encounter Details Date Type Department Care Team (Latest Contact Info) Description 06/02/2019 Abstract [facility] CONVERSIONS Dental, Provider, DDS Social History [...]
--- OUTSIDE RECORDS SUMMARY | 2025-09-14 08:32 | XMS_ITS | Patient Health Record ---
Author Organization [place] [facility] Address [address] [place] [id number] Care Team Providers Care Mine Geologist Name Role Phone Fab Garcia Jr Reason For Referral No Information Plan Of Treatment No Information
== END 2025-09-14 08:53 | disposition home or self-care (01) ==
LOC: HO.ENCR 08:22
PROVIDERS: PCP Internal Medicine; Visit Provider Internal Medicine Endocrinology, Diabetes & Metabolism
DX: M81.0 Age-related osteoporosis without current pathological fracture (principal)
CPT/HCPCS: 99213

== ENCOUNTER → 2025-09-14 08:22 | Outpatient (BNVA) | payer MEDICARE, SELFPAY | PROVIDERS: PCP Internal Medicine; Visit Provider Internal Medicine Endocrinology, Diabetes & Metabolism | DX: M81.0 Age-related osteoporosis without current pathological fracture (principal); E89.2 Postprocedural hypoparathyroidism; Z79.620 Long term (current) use of immunosuppressive biologic | CPT/HCPCS: 96372; 99212; J0897 ==

== ENCOUNTER 2025-10-14 07:44 | Outpatient (REF) | payer OTHER, SELFPAY ==
--- NOTE | ~2025-10-14 | MM_ITS ---
EXAMINATION: MM SCREENING DIGITAL BREAST TOMOSYNTHESIS, BILATERAL CLINICAL INFORMATION: Screening. Asymptomatic. COMPARISON: Mammography: Comparison is made with available priors TECHNIQUE: Digital breast mammography with tomosynthesis is performed in both the craniocaudal and mediolateral oblique views along with computer-aided detection (CAD). FINDINGS: The breasts are heterogeneously dense, which may obscure small masses. There are no significant masses, abnormal calcifications, or other abnormalities. MM/MM tomosynthesis screening BI IMPRESSION: No mammographic evidence of malignancy. ASSESSMENT: BI-RADS Category 1: Negative RECOMMENDATION: Routine annual mammography screening. 1 year F/U This examination should not preclude the clinical evaluation of a suspicious palpable abnormality. This patient's information was entered into a reminder system with a target due date for their next mammogram. Electronically signed by: Pushpa Coe DO 10/18/2025 01:24 PM BOYD
--- NOTE | ~2025-10-14 | MM_ITS ---
EXAMINATION: DXA BONE DENSITY AXIAL HISTORY: M81.0 - Age-related osteoporosis without current pathological fracture TECHNIQUE: Zadspace Dual energy absorptiometry (DEXA) of the lumbar spine, total left hip, and femoral neck was performed. COMPARISON: Comparison is made with the prior examination dated 10/03/2023. FINDINGS: The bone mineral density of the lumbar spine is 1.014 g/cm2, corresponding to a T-score of -1.3, and a Z-score of 0.5. This is indicative of osteopenia. This represents a BMD change of 9.4% compared to the prior exam. This is statistically significant. The bone mineral density of the left total hip is 0.710 g/cm2, corresponding to a T-score of -2.4, and a Z-score of -0.7. This is indicative of osteopenia. This represents a BMD change of 2.7% compared to the prior exam. This is not statistically significant. The bone mineral density of the left femoral neck is 0.627 g/cm2, corresponding to a T-score of -3.0, and a Z-score of -1.1. This is indicative of osteoporosis. This represents a BMD change of 2.8% compared to the prior exam. FRACTURE RISK: The FRAX index suggests a ten year probability of major osteoporotic fracture of 11.9%, and of hip fracture 4.2%. MM/XR DEXA axial skeleton IMPRESSION: Based on bone mineral density, and according to World Health Organization (WHO) criteria, the diagnosis is consistent with osteoporosis. Statistically, 68% of repeat scans fall within 1 SD (+/- 0.010 g/cm2 for AP spine L1-L4) and 1 SD (+/- 0.012 g/cm2 for femur total) FRAX is a trademark of the [employer] for Metabolic Bone Disease, a World Health Organization (WHO) Collaborating Center. Electronically signed by: Doc Foster MD 10/14/2025 08:41 AM [facility]
== END 2025-10-14 07:45 | disposition home or self-care (01) ==
LOC: HO.MAMMO 07:44
PROVIDERS: PCP Internal Medicine; Visit Provider Internal Medicine Endocrinology, Diabetes & Metabolism
DX: Z12.31 Encounter for screening mammogram for malignant neoplasm of breast (principal); M81.0 Age-related osteoporosis without current pathological fracture
CPT/HCPCS: 77063; 77067; 77080

== ENCOUNTER → 2025-10-14 08:15 | Outpatient (BNV) | payer OTHER, SELFPAY | PROVIDERS: PCP Internal Medicine; Visit Provider Radiology Diagnostic Radiology | DX: E28.39 Other primary ovarian failure (principal) | CPT/HCPCS: 77080 ==

== ENCOUNTER 2025-10-15 07:08 | Outpatient (REF) | payer OTHER, SELFPAY ==
--- OUTSIDE RECORDS SUMMARY | 2025-10-15 07:10 | XMS_ITS | Clinical Summary ---
Author Organization [employer] Address [address] [place] [address] [address] [place] [address] Care Team Providers Care Administrative Court Justice Name Role Phone Unavailable Primary Care Provider [...] of 2) 2002 COVID-19 Vaccine ( - 2024-2 6 season) 2025 Influenza Vaccine (#1) 2025 RSV [...]
--- OUTSIDE RECORDS SUMMARY | 2025-10-15 07:10 | XMS_ITS | Encounter Summary ---
Author Organization [employer] Address [address] [facility] [address] [facility] [address]t [place] [address] Care Team Providers Care Special Officer Automat Name Role Phone Unavailable Primary Care Provider Unavailabl e Encounter Details Date Type Department Care Team (Latest Contact Info) Description 06/02/2019 Abstract [facility] CONVERSIONS Dental, Provider, DDS Social History [...]
--- OUTSIDE RECORDS SUMMARY | 2025-10-15 07:10 | XMS_ITS | Patient Health Record ---
Author Organization [place] [facility] Address [address] [place] [address] Care Team Providers Care Concrete Paving Supervisor Name Role Phone Fab Garcia Jr [phone] Reason For Referral No Information Plan Of Treatment No Information
--- OUTSIDE RECORDS SUMMARY | 2025-10-15 07:10 | XMS_ITS | Patient Health Record ---
Author Organization [facility] Address [address] [place] [address] Phone [phone] Care Team Providers Care Cage Manager Name Role Phone IRMA GÓMEZ, ALINEAMMED Unavailable Allergies No Known Allergies Reason For Referral No Information Social History Sex Observation Social History Observation Description Sex Observation Female Social History Section Notes: non smoker Plan Of Treatment No Information Insurance Providers Payer Name Payer Address Payer Phone Subscriber Number Group Number Insured Name Patient Relationship to Insured Coverage Start Date Coverage End Date JEAN PIERRE [id number] DoNotUse [address] [address] [place] [address] [id number] Ari Morgan Self - patient is the insured MEDICARE TRADIONAL PPO [address] [place] [phone] [id number] Ari Mrogan Self - patient is the insured
[2025-10-15 11:35] LABS: MANUAL DIFF FLAG NO
[2025-10-15 11:49] LABS: Hematocrit 39.7 % (37.0-47.0); Hemoglobin 13.0 g/dl (12.0-16.0); Imm Gran Abs Auto 0.02 X10*3/uL (0.00-0.03); Imm Gran Pct Auto 0.3 % (0.0-0.4); Lymphocytes Absolute Auto 1.9 X10*3/uL (1.2-4.9); Mean Corpuscular HGB Conc 32.7 g/dl (31.0-35.0); Mean Corpuscular Hemoglobin 30.6 pg (27.0-33.0); Mean Corpuscular Volume 93.4 fL (80.0-98.0); NRBC Abs Auto 0.000 X10*3/uL (0.0-0.012); NRBC Pct Auto 0.0 /100WBC (0.0-0.2); Platelet Count 246 X10*3/uL (160-400); Red Blood Count 4.25 X10*6/uL (4.20-5.50); White Blood Count 6.1 X10*3/uL (4.8-10.8)
[2025-10-15 12:13] LABS: Albumin Level 4.7 g/dL (3.5-5.0); Calcium 8.3 mg/dL (8.4-10.2); Cholesterol 176 mg/dL (<200); HDL Cholesterol 53 mg/dL (>40); Triglycerides 101 mg/dL (<150)
== END 2025-10-15 07:09 | disposition home or self-care (01) ==
LOC: HO.HMGCLDS 07:08
PROVIDERS: Internal Medicine Endocrinology, Diabetes & Metabolism; PCP Internal Medicine; Visit Provider Internal Medicine
DX: M81.0 Age-related osteoporosis without current pathological fracture (principal); E78.9 Disorder of lipoprotein metabolism, unspecified; E55.9 Vitamin D deficiency, unspecified; I10 Essential (primary) hypertension; R73.03 Prediabetes; Z91.09 Other allergy status, other than to drugs and biological substances
CPT/HCPCS: 36415; 80061; 82040; 82310; 84443; 85025

== ENCOUNTER 2025-10-19 10:41 | Outpatient (AMB) | payer MEDICARE, SELFPAY ==
--- NOTE | 2025-10-19 10:43 | A.OFFPC_ITS ---
Vital Signs 10/19/25 10:44 Height 5 ft 3.5 in Weight 139 lb BMI 24.2 BP 110/72 Blood Pressure Location Lt brachial Position Sitting Pulse 70 Pulse Source Pulse Oximeter Pulse Oximetry (%) 100 Intake Visit Reasons: Annual PE Allergies No Known Allergies Allergy (Verified 10/19/25 10:44) Medication List - Last Reconciled 10/19/25 by Moustapha Mariee MD acetaminophen (Tylenol) 650 mg (2 x 325 mg) PO TID PRN 90 days aspirin 81 mg PO DAILY 90 days atorvastatin 20 mg PO DAILY [id number]-[id number]-bianca 325 mg-12.5 mcg -2.75 mg (Citracal-D3 Maximum Plus) 1 tab PO BID cetirizine 10 mg PO DAILY 90 days clotrimazole-betamethasone 1-0.05 % 1 appl topical DAILY denosumab (Prolia) 60 mg subcut [id number] famotidine 20 mg PO BEDTIME 90 days hydrocortisone 2.5% 1 appl topical BID PRN 30 days irbesartan 75 mg PO DAILY 90 days Tobacco use date assessed: 04/29/25 Fall risk assessment: No Falls in past year Last assessed Fall Risk: 10/19/25 Dental Screening Dental Screen Date: 01/26/25 HPI Annual PE HPI Details tramadol HPI Comments History of Present Illness Details History of Present Illness The patient is a 74 year old female presenting with right hip pain and for review of recent test results. and Physical exam Osteoporosis: - The patient has osteoporosis - A recent bone density scan showed a sc ore of -3.0, which is a slight impro vement from a prior score of -3.1. - Her calcium level was recently 8.3, wh ich is slightly low. - Dr. Ayala recommended she reduce her calcium intake Hip Pain: - The patient reports new onset of signi ficant pain in her right hip for the past two months. - The pain is exacerbated by prolonged s itting and radiates down her leg. - She also reports associated weakness a nd a heavy sensation in her legs. - She has no history of prior hip x-rays . - She used to take ibuprofen but is not currently taking any medication for the pain. she says ibuprofen and tylenol dont work Chronic Pain: - The patient complains of significant, widespread body pain and muscle soreness, particularly upon waking. - She has previously tried gabapentin wi thout relief. Social History: - Exercise: The patient reports exercisi ng a lot, including using a full-body shaking machine, but does not feel it is helping with her pain. - Activities of Daily Living: She report s sitting for most of the day. - Travel: She is planning a one-week tri p to [place] next week. Health Maintenance - Mammogram: Recent mammogram was normal . - Bone Density Scan: A recent scan showe d a score of -3.0, indicating ost eoporosis, which is a slight improvement from her previous score of -3.1. no longer want colon screening or obgyn visits [facility] The patient is being followed by a Dr. Ayala for management of her calcium levels. [facility] Medical History TIA (transient ischemic attack) Back pain Elevated cholesterol HTN (hypertension) Cataract Hypoparathyroidism Vitamin D deficiency Osteoporosis Hyperparathyroidism Surgical History Hx of cataract surgery History of hysteroscopy H/O colonoscopy History of back surgery History of parathyroid surgery Hx of neck surgery Hx of removal of neck cyst Hx of section Family History Father Diabetes Hypertension Mother Diabetes Hypertension Family/Other Colon cancer Social History Household Members Other:: uncle Housing: Apartment Are you a primary child day care center worker to a significant other at home: No Do you presently have visiting nurse or other home services: No Alcohol intake: current Alcohol intake frequency: does not drink Patient Tobacco Use Status: Never used Tobacco e-Cigarette/Vaping Use: Never Used service: No Current occupational status: employed Cognitive needs: No Hearing needs: No Vision needs: Yes Female Reproductive History Menstrual Age of Menarche: 17 Questionnaire Thrive Questionnaire Date Thrive assessed: 01/26/25 I am a: Patient What is your living situation today?: I have a steady place to live Within the past 12 months, did the food you bought not last and you didn't have the money to get more?: Often true Within the past 12 months, did you worry whether your food would run out before you got money to buy more?: Often true Do you have trouble paying for medicines?: No Do you have trouble getting transportation to medical appointments?: No Do you have trouble paying your heating and electricity bill?: No Do you have trouble taking care of your child, family member or friend?: No Do you have trouble with day-to-day activities such as bathing, preparing meals, shopping, managing finances, etc.?: No Are you currently unemployed and looking for a job?: No Are you interested in more education?: No Currently or been in a relationship where the following occur: I choose not to answer THRIVE Score: 2 PARI-7 AMB Questionnaire PARI-7 Date PARI - 7 assessed: 01/26/25 Source: Developed by Drs. Doc Douglas, Di Villanueva, Marvin Thorne and colleagues, with an educational alfa from [employer]. Review of Systems Narrative Review of Systems . - Breast: Denies any breast concerns and declined a breast exam. - General: No fever no chills - Neurological: No headaches no dizziness - Ear nose throat: No sore throat no hearing difficulty no ear pain - Cardiovascular: No syncope, no chest pain, no palpitations - Gastrointestinal: No nausea vomiting or diarrhea - Endocrine: No polyuria polydipsia no heat intolerance - Genitourinary: No dysuria - Skin: No new complaints Physical exam (Primary Care) Vital Signs: Last Vital Signs Pulse 70 10/19/25 10:44 BP 110/72 10/19/25 10:44 Pulse Ox 100 10/19/25 10:44 BMI result Body Mass Index 24.2 Tobacco/Smoking Status: Tobacco use Status Tobacco use date assessed 04/29/25 10/19/25 10:44 Patient Tobacco Use Status Never used Tobacco 10/19/25 10:44 e-Cigarette/Vaping Use Never Used 10/19/25 10:44 Thrive Assessment: Date of Thrive Assessment Date Thrive assessed 01/26/25 10/19/25 10:44 Currently or been in a relationship where the following occur: I choose not to answer Narrative Physical Exam General: Cooperative, healthy appearing, comfortable, no acute distress Orientation: Patient oriented x3 Head: Normal to inspection Ears: Within normal limit visually Nose: Normal external nose present Face and sinus: Normal facial exam Eyes: Appearance normal, extraocular movement intact pupils reactive Neck: Normal visual inspection and supple Respiratory: Normal respiratory effort and able to speak in complete sentences. Clear to auscultation, no stridor Cardiovascular: S1 and S2 RRR Breast exam declined GI: Normal to inspection. Soft to palpation and nontender Skin: Turgor normal, no acute findings Neuro: Patient oriented x3, motor sensory intact, balance intact, tandem pass, st leg neg both side Extremities: Normal to inspection, No swelling observed. . Coding Level of Care Code Est Pt Level 3 (56949) Est Pt Prev Care >65y(07516) Diagnoses Encounter for general adult medical examination with abnormal findings Z00.01 Hip pain, right M25.551 Chronic midline low back pain with bilateral sciatica M54.41; M54.42; G89.29 Back pain laterality: midline Chronicity: chronic Sciatica laterality: bilateral sciatica Sciatica presence: with sciatica Bilateral leg weakness R29.898 Muscle stiffness M62.89 Hypertension, essential I10 Lipid disorder E78.9 Environmental allergies Z91.09 Pre-diabetes R73.03 Osteoporosis, unspecified osteoporosis type, unspecified pathological fracture presence M81.0 Osteoporosis type: unspecified Presence of current pathological fracture: unspecified Vitamin D deficiency E55.9 Assessment & Plan Assessment & Plan (1) Encounter for general adult medical examination with abnormal findings: Code(s): Z00.01 - Encounter for general adult medical examination with abnormal findings Category: Medical (2) Hip pain, right: Code(s): M25.551 - Pain in right hip Category: Medical (3) Lower back pain: Code(s): M54.50 - Low back pain, unspecified Category: Medical Qualifiers: Back pain laterality: midline Chronicity: chronic Sciatica laterality: bilateral sciatica Sciatica presence: with sciatica Qualified Code(s): M54.41 - Lumbago with sciatica, right side; M54.42 - Lumbago with sciatica, left side; G89.29 - Other chronic pain (4) Bilateral leg weakness: Code(s): R29.898 - Other symptoms and signs involving the musculoskeletal system Category: Medical (5) Muscle stiffness: Code(s): M62.89 - Other specified disorders of muscle Category: Medical (6) Hypertension, essential: Code(s): I10 - Essential (primary) hypertension Category: Medical (7) Lipid disorder: Code(s): E78.9 - Disorder of lipoprotein metabolism, unspecified Category: Medical (8) Environmental allergies: Code(s): Z91.09 - Other allergy status, other than to drugs and biological substances Category: Medical (9) Pre-diabetes: Code(s): R73.03 - Prediabetes Category: Medical (10) Osteoporosis: Code(s): M81.0 - Age-related osteoporosis without current pathological fracture Category: Medical Qualifiers: Osteoporosis type: unspecified Presence of current pathological fracture: unspecified Qualified Code(s): M81.0 - Age-related osteoporosis without current pathological fracture (11) Vitamin D deficiency: Code(s): E55.9 - Vitamin D deficiency, unspecified Category: Medical Plan Patient Instructions - Follow the directions from Dr. Ayala regarding your calcium supplement. - Go for x-rays of your hip and back. The order has been placed and you can go today. - An order will be placed for physical therapy to help strengthen your legs. Please book your appointment. - You will receive a prescription for Tramadol. This is for days when your pain is severe. Take only one tablet. - When you first try Tramadol, take it at home to see how you feel. It can cause constipation, dizziness, or sleepiness, so do not drive after taking it. - You can take a muscle relaxer at night as needed to help with muscle soreness and stiffness, which may help you feel better in the morning. - It is important to continue walking to keep your bones strong. f/u 3 M Orders: Orders XR hip RT min 2V Today M25.551 - Pain in right hip XR lumbar spine 2-3V Today M54.50 - Low back pain, unspecified PT Evaluation and Treatment Today R29.898 - Other symptoms and signs involving the musculoskeletal system Medications: New tizanidine 2 mg PO BEDTIME PRN 30 tabs 0RF muscle spasticity 30 days
[2025-10-19 10:44] VITALS: BP 110/72; PULSE 70; O2SAT 100; BMI 24.2
--- OUTSIDE RECORDS SUMMARY | 2025-10-19 13:37 | XMS_ITS | Patient Health Record ---
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
--- OUTSIDE RECORDS SUMMARY | 2025-10-19 13:37 | XMS_ITS | Patient Health Record ---
Author Organization [facility] Address [address] [place] [id number] Care Team Providers Care Thrasher Feeder Name Role Phone Fab Garcia Jr Reason For Referral No Information Plan Of Treatment No Information
--- OUTSIDE RECORDS SUMMARY | 2025-10-19 13:37 | XMS_ITS | Encounter Summary ---
Author Organization [employer] Address [address] [place] [address] Care Team Providers Care Mail Weigher Name Role Phone Unavailable Primary Care Provider Unavailabl e Encounter Details Date Type Department Care Team (Latest Contact Info) Description 06/02/2019 Abstract [facility] CONVERSIONS Dental, Provider, DDS Social History Tobacco [...]
--- OUTSIDE RECORDS SUMMARY | 2025-10-19 13:37 | XMS_ITS | Clinical Summary ---
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
== END 2025-10-19 11:17 | disposition home or self-care (01) ==
LOC: HO.HMCC 10:42
PROVIDERS: PCP Internal Medicine; Visit Provider Internal Medicine
DX: Z00.01 Encounter for general adult medical examination with abnormal findings (principal); I10 Essential (primary) hypertension; R73.03 Prediabetes; G89.29 Other chronic pain; M54.41 Lumbago with sciatica, right side; M54.42 Lumbago with sciatica, left side; M25.551 Pain in right hip; R29.898 Other symptoms and signs involving the musculoskeletal system; M62.89 Other specified disorders of muscle; E78.9 Disorder of lipoprotein metabolism, unspecified; M81.0 Age-related osteoporosis without current pathological fracture; E55.9 Vitamin D deficiency, unspecified; Z91.09 Other allergy status, other than to drugs and biological substances

== ENCOUNTER 2025-10-19 10:41 | Outpatient (REF) | payer MEDICARE, SELFPAY ==
--- NOTE | ~2025-10-19 | XR_ITS ---
EXAMINATION: XR LUMBOSACRAL SPINE CLINICAL INFORMATION: M54.50 - Low back pain, unspecified COMPARISON: 11/29/2022 TECHNIQUE: Three views of the lumbosacral spine. FINDINGS: There are 5 nonrib-bearing lumbar segment. Vertebral body height and alignment is unchanged from the prior. L3-4: There is stable subtle anterolisthesis with endplate sclerosis. L5-S1: Unchanged posterior pedicle screws and rods with interbody fusion. XR/XR lumbar spine 2-3V IMPRESSION: Stable lumbar spine x-ray compared with study performed November 29, 2022 Electronically signed by: Sin Kauffman MD 10/19/2025 11:43 AM EST
--- NOTE | ~2025-10-19 | XR_ITS ---
EXAMINATION: XR HIP 2 OR MORE VIEWS RIGHT HISTORY: M25.551 - Pain in right hip COMPARISON: There are no prior studies available for comparison. FINDINGS: Two views of the left hip are submitted. Osseous mineralization is normal. There is no fracture or dislocation. The joint space is maintained. The soft tissues are unremarkable. XR/XR hip RT min 2V IMPRESSION: Unremarkable examination of the right hip. Electronically signed by: Doc Foster MD 10/19/2025 11:42 AM BOYD
== END 2025-10-19 10:42 | disposition home or self-care (01) ==
LOC: HO.HMGCX 10:41
PROVIDERS: PCP Internal Medicine; Visit Provider Internal Medicine
DX: Z00.01 Encounter for general adult medical examination with abnormal findings (principal); M25.551 Pain in right hip; M54.41 Lumbago with sciatica, right side; M54.42 Lumbago with sciatica, left side; G89.29 Other chronic pain; R29.898 Other symptoms and signs involving the musculoskeletal system; M62.89 Other specified disorders of muscle; I10 Essential (primary) hypertension; E78.9 Disorder of lipoprotein metabolism, unspecified; Z91.09 Other allergy status, other than to drugs and biological substances; R73.03 Prediabetes; M81.0 Age-related osteoporosis without current pathological fracture; E55.9 Vitamin D deficiency, unspecified
CPT/HCPCS: 72100; 73502; 99212; 99397

== ENCOUNTER → 2025-10-19 11:27 | Outpatient (BNV) | payer MEDICARE, SELFPAY | PROVIDERS: PCP Internal Medicine; Visit Provider Radiology Diagnostic Radiology | DX: M25.551 Pain in right hip (principal); M54.50 Low back pain, unspecified | CPT/HCPCS: 72100; 73502 ==